=== PATIENT | male | born 1940 | race Caucasian/White ===

== ENCOUNTER 2023-08-22 16:25 | Emergency (ER) | payer OTHER, SELFPAY ==
[2023-08-22 16:37] VITALS: BP 137/72
[2023-08-22 18:20] LABS: % Basophils 0.6 % (0-2); % Eosinophils 1.8 % (0-6); % Immature Granulocytes 1.1 % (0-0.5); % Lymphocytes 24.5 % (20.5-51.1); % Monocytes 9.3 % (1.7-9.3); % Neutrophils 62.7 % (42.2-75.2); Absolute Basophils 0.1 10^3/uL (0-0.2); Absolute Eosinophils 0.2 10^3/uL (0-0.7); Absolute Immature Granulocytes 0.1 10^3/uL (0-0.05); Absolute Lymphocytes 2.7 10^3/uL (1.2-3.4); Hematocrit 45.1 % (39.0-52.0); Hemoglobin 15.1 g/dL (13.0-18.0); Mean Corp Hgb Conc. 33.5 g/dL (33.0-37.0); Mean Corpuscular Hgb 32.7 pg (27.0-31.0); Mean Corpuscular Volume 97.6 fL (80.0-94.0); Mean Platelet Volume 11.4 fL (7.4-10.4); Nucleated Red Blood Cells % 0 % (-); Platelet Count 180 10^3/uL (130-400); Red Blood Cell Count 4.62 10^6/uL (4.70-6.10); White Blood Cell Count 11.1 10^3/uL (4.8-10.8)
[2023-08-22 18:32] LABS: Blood Urea Nitrogen 38 mg/dl (9-20); Calcium 9.1 mg/dl (8.4-10.2); Carbon Dioxide 24 mmol/L (22-30); Chloride 99 mmol/L (98-107); Glucose 110 mg/dl (70-99); Potassium 4.1 mmol/L (3.5-5.1); Sodium 131 mmol/L (135-145); eGFR > 60.00
[2023-08-22 19:08] VITALS: BP 149/77
[2023-08-22 20:00] VITALS: BP 147/87
--- NOTE | 2023-08-22 20:00 | ED.GENMED ---
History of Present Illness
General
Chief Complaint: Back Pain
Source: patient
Exam Limitations: none
Time Seen by Provider: 08/22/23 17:12
Travel History
Have you had any contact with someone who has COVID-19?: No
Do you have any symptoms of coronavirus? Fever > 100 degrees, chills, cough, shortness of breath, sore throat, loss of taste or smell, muscle aches, or headache?: No
History of Present Illness
History of Present Illness:
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 Difficulty sleeping. He was up all last light pacing. A general jittery feeling to his body. This is occurred occasionally in the past. Denies chest
pain shortness of breath headache or other neurologic symptoms. He does state his mouth feels dry.
Past History
Past History
ED Past Medical History: Arrthythmia (af), CAD, GERD, HTN, Hypercholesterolemia, [place] and Other (pancreatitis)
ED Past Surgical History: Orthopedic and Other ( intussusception x2 as a child)
Social History
Tobacco: Non-smoker
Alcohol: None
Drug: None
Personal:
Living: with family
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
Family History
Family History: Hypertension
Review of Systems
Review of Systems
All Other Systems: Not applicable
Constitutional: Denies fever
Respiratory: Reports no symptoms
Cardiac: Reports no symptoms
ABD/GI: Reports no symptoms
Phy Exam
Physical Exam
Physical Exam:
GENERAL: Alert and oriented in no apparent distress
EYE: Orbits normal.
NECK: Supple, no thyroid palpable
ENT: Pharynx without erythema
CARDIAC: Borderline bradycardia no murmur
LUNGS: Clear breath sounds,normal
ABDOMEN: Soft, without focal tenderness or distention
NEUROLOGICAL: Alert and oriented , cranial nerves II through XII intact except for a very minimal slur to his speech. Patient states his speech is normal to him. [id number] normal. Gait slightly wide-based. However he states this is also
normal for him.
SKIN: Warm and dry, no rash or lesion, no discoloration, skin intact.
MUSCULOSKELETAL: No edema,no deformity.Good color
PSYCH: Normal and appropriate interaction.
Course
Orders/Labs/Results
Orders:
Orders
08/22/23 17:39
CT Head W/o Iv Contrast Urgent
Comment:
Reason For Exam: Akathisia. Anticoagulated
IV Insert/Care/Rem.- Treatment PRN
08/22/23 18:04
Basic Metabolic Panel Urgent
Complete Blood Count/With Diff Urgent
Abnormal Lab Results
08/22/23
18:04
WBC 11.1 H 10^3/uL
(4.8-10.8)
RBC 4.62 L 10^6/uL
(4.70-6.10)
MCV 97.6 H fL
(80.0-94.0)
MCH 32.7 H pg
(27.0-31.0)
MPV 11.4 H fL
(7.4-10.4)
Abs Immat Gran (auto) 0.1 H 10^3/uL
(0-0.05)
Absolute Neuts (auto) 7.0 H 10^3/uL
(1.4-6.5)
Absolute Monos (auto) 1.0 H 10^3/uL
(0.1-0.6)
Immature Gran % 1.1 H %
(0-0.5)
Sodium 131 L mmol/L
(135-145)
BUN 38 H mg/dl
(9-20)
Glucose 110 H mg/dl
(70-99)
08/22/23 18:04
01/29/24 18:04
Vital Signs
Initial and Last Documented VS:
Initial Vital Signs
Temp Pulse Resp BP Pulse Ox
97.6 F 60 16 137/72 96
08/22/23 16:37 08/22/23 16:37 08/22/23 16:37 08/22/23 16:37 08/22/23 16:37
Last Documented Vital Signs
Temp Pulse Resp BP Pulse Ox
97.6 F 57 16 149/77 99
08/22/23 16:37 08/22/23 19:15 08/22/23 19:15 08/22/23 19:08 08/22/23 19:15
*Radiology
Radiology exam reviewed: radiology read reviewed (Negative)
*Maintenance Shop Welder Interpretation
Rate: bradycardiac
Interpretation: normal
Heart Rate: 57
*Critical Care Note
Total Time (30-74mins, 75-104mins- exclusive of procedures): Not Applicable
Data Reviewed
Review of Other/Old Records Reveals: Labs and Records
Update Note
Update Note:
Patient is very and very nontoxic and stable. Not describing acute cardiac neurologic symptoms. Describing almost a mild akathisia and possibly some anxiety component. He did feel this slightly worse before you are going to CT which he was
worried about. Patient's sodium is 131 which I doubt is causing his symptoms and not low enough to warrant admission however we will hold his diuretic blood pressure medication somewhat limit fluid intake repeat his sodium in 3 days.
ED Attending Note
-
Portions of this chart may have been created with voice recognition software.� Occasional wrong word or��sound alike� substitutions may have occurred due to the inherent limitations of voice recognition software.
Discharge Plan
Departure
Patient Disposition: Home (Routine Discharge)
Date of Disposition: 08/22/23
Time of Disposition: 20:03
Patient with high blood pressure during this ER visit?: Yes
Discharge Problem:
Akathisia, Insomnia, Mild hyponatremia
Instructions: Hyponatremia (DC), Insomnia (DC), BLOOD PRESSURE
Prescriptions:
New
candesartan 32 mg tablet
32 mg PO DAILY Qty: 14 0RF
No Action
prednisone 10 MG tablet
5 mg PO HS
acetaminophen 325 MG tablet
650 mg PO Q4HPRN PRN (Reason: fever)
mirtazapine 15 MG tablet
30 mg PO HS
tamsulosin [Flomax] 0.4 MG capsule
0.8 mg PO HS
candesartan-hydrochlorothiazid 1 EACH tablet
1 tab PO DAILY
hydrocodone-acetaminophen 1 TABLET tablet
1 tab PO BIDPRN PRN (Reason: severe back pain)
Patient Comments:
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
famotidine 20 MG tablet
20 mg PO DAILYPRN PRN (Reason: gerd)
calcium carbonate [Antacid (calcium carbonate)] 1 TABLET tablet,chewable
1 tab PO Q6HPRN PRN (Reason: upset stomach)
nitroglycerin 0.4 MG tablet, sublingual
0.4 mg sublingual [id number] PRN (Reason: chest pain)
pantoprazole 40 MG tablet,delayed release (DR/EC)
40 mg PO BID
allopurinol 300 MG tablet
300 mg PO DAILY
rosuvastatin 5 MG tablet
5 mg PO HS
Propranolol Hcl [Inderal La] 60 MG Cap.Sa.24h
60 mg PO DAILY Qty: 30 3RF
propranolol 60 MG tablet
60 mg PO DAILY
propranolol 20 MG tablet
20 mg PO Q6HPRN PRN (Reason: as needed)
Patient Comments:
take 1/2 to 1 tablet prn
Eliquis 5 MG tablet
5 mg PO BID Qty: 0 0RF
Rx Instructions:
Ok to resume tonight, 01/30 at usual time
alprazolam 0.5 MG tablet
0.5 mg PO HSPRN PRN (Reason: INSOMNIA) 0RF
Patient Comments:
pharmacy rock picker on 12/08/20 #30
Referrals:
Elroy Olguin MD [Family Provider] - Follow up in 2-3 days
Activity Restrictions/Additional Instructions:
Get a repeat sodium level done this
Stay hydrated but limit your fluid intake
Temporarily drop your hydrochlorothiazide for your blood pressure into your sodium increases. I sent in the prescription without the diuretic
Follow-up closely with your primary physician
Return with progression of symptoms including worsening akathisia or any other unusual symptoms
Interventions
Interventions:
*Risk Screen - Suicide Last Done: 08/22/23 16:37
*General Assessment Last Done: 08/22/23 16:37
*Neglect/Abuse Screening Last Done: 08/22/23 16:40
ED- Fall Risk Assessment Last Done: 08/22/23 16:37
*ED COVID-19 Vaccine History Last Done: 08/22/23 16:37
ED-Musculoskeletal Assessment Last Done: 08/22/23 16:37
== END 2023-08-22 21:05 | disposition home or self-care (01) ==
LOC: EMR 16:25
PROVIDERS: EMERGENCY PHYSICIAN Emergency Medicine; FAMILY PHYSICIAN Internal Medicine
DX: G25.71 Drug induced akathisia (principal); G47.00 Insomnia, unspecified; E87.1 Hypo-osmolality and hyponatremia; I25.10 Atherosclerotic heart disease of native coronary artery without angina pectoris; K21.9 Gastro-esophageal reflux disease without esophagitis; I10 Essential (primary) hypertension; E78.00 Pure hypercholesterolemia, unspecified; Z82.49 Family history of ischemic heart disease and other diseases of the circulatory system
CPT/HCPCS: 99284; 70450; 80048; 85025

== ENCOUNTER → 2023-12-10 11:49 | Outpatient (REF) | payer OTHER, SELFPAY | LOC: RAD 11:49 | PROVIDERS: ATTENDING PHYSICIAN Internal Medicine | DX: J32.9 Chronic sinusitis, unspecified (principal); J34.89 Other specified disorders of nose and nasal sinuses; G44.52 New daily persistent headache (NDPH) | CPT/HCPCS: 70220 ==

== ENCOUNTER 2023-12-31 17:26 | Emergency (ER) | payer OTHER, SELFPAY ==
[2023-12-31 17:28] VITALS: BP 158/98
[2023-12-31 18:14] VITALS: BMI 28.1
--- NOTE | 2023-12-31 18:26 | ED.GENMED ---
History of Present Illness
General
Chief Complaint: Rectal Bleeding
Time Seen by Provider: 12/31/23 18:05
Travel History
Have you had any contact with someone who has COVID-19?: No
Do you have any symptoms of coronavirus? Fever > 100 degrees, chills, cough, shortness of breath, sore throat, loss of taste or smell, muscle aches, or headache?: No
History of Present Illness
History of Present Illness:
83-year-old male with history of A-fib, hypertension, and hyperlipidemia presents to the emergency department for evaluation of bright red rectal bleeding beginning last night. He is 11 days status post hemorrhoidal banding, states he had brief
bloody stool the day after the procedure but none since. Last night had 1 bloody bowel movement and today had 3 separate bloody bowel movements. He denies lightheadedness or abdominal pain. He last took his Eliquis last night but held his morning
dose today. Denies any other complaint
Past History
Past History
ED Past Medical History: Arrthythmia (af), CAD, GERD, HTN, Hypercholesterolemia, [place] and Other (pancreatitis)
ED Past Surgical History: Orthopedic and Other ( intussusception x2 as a child)
Social History
Tobacco: Non-smoker
Alcohol: None
Drug: None
Personal:
Living: with family
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
Family History
Family History: Hypertension
Review of Systems
Review of Systems
Allergies reviewed?: Yes
All Other Systems: ROS reviewed and negative except as documented in HPI and ROS
Phy Exam
Physical Exam
Physical Exam:
GEN: Well appearing, NAD, WDWN
HEENT: Oral mucosa moist, no scleral icterus
Cardiac: Regular rate
Lung: No respiratory distress, no tachypnea
Rectal: Scant blood in the rectal vault, no palpable hemorrhoids
MSK: No gross deformity or injuries
Skin: Good color, no pallor or jaundice, no rashes
Neuro: AO x3, moves all extremities freely
Psych: Calm, cooperative
Course
Orders/Labs/Results
Orders:
Orders
12/31/23 18:31
Complete Blood Count/With Diff Urgent
Comprehensive Metabolic Panel Urgent
Abnormal Lab Results
12/31/23
18:31
WBC 11.2 H 10^3/uL
(4.8-10.8)
MCH 31.4 H pg
(27.0-31.0)
MPV 11.6 H fL
(7.4-10.4)
Abs Immat Gran (auto) 0.1 H 10^3/uL
(0-0.05)
Absolute Neuts (auto) 6.8 H 10^3/uL
(1.4-6.5)
Absolute Monos (auto) 1.1 H 10^3/uL
(0.1-0.6)
Immature Gran % 1.0 H %
(0-0.5)
Monocytes % 9.8 H %
(1.7-9.3)
BUN 29 H mg/dl
(9-20)
12/31/23 18:31
12/31/23 18:31
Vital Signs
Initial and Last Documented VS:
Initial Vital Signs
Temp Pulse Resp BP Pulse Ox
98.0 F 67 16 158/98 98
12/31/23 17:28 12/31/23 17:28 12/31/23 17:28 12/31/23 17:28 12/31/23 17:28
Last Documented Vital Signs
Temp Pulse Resp BP Pulse Ox
98.0 F 67 16 158/98 98
12/31/23 17:28 12/31/23 17:28 12/31/23 17:28 12/31/23 17:28 12/31/23 17:28
MDM/Problems Addressed
MDM/Problems Addressed:
Had a lengthy discussion with the patient regarding his stable hemoglobin which dropped from 15.4-14.9 over the past 2 weeks. He will hold his Eliquis for another 48 hours. He is comfortable with this plan and his colorectal surgeon is made aware
and is on board.
*Critical Care Note
Total Time (30-74mins, 75-104mins- exclusive of procedures): Not Applicable
ED Attending Note
-
Portions of this chart may have been created with voice recognition software.� Occasional wrong word or��sound alike� substitutions may have occurred due to the inherent limitations of voice recognition software.
Discharge Plan
Departure
Patient Disposition: Home (Routine Discharge)
Date of Disposition: 12/31/23
Time of Disposition: 19:25
Patient with high blood pressure during this ER visit?: No
Discharge Problem:
BRBPR (bright red blood per rectum)
Instructions: Bloody Stools, Adult (DC)
Prescriptions:
No Action
prednisone 10 MG tablet
5 mg PO HS
acetaminophen 325 MG tablet
650 mg PO Q4HPRN PRN (Reason: fever)
mirtazapine 15 MG tablet
30 mg PO HS
tamsulosin [Flomax] 0.4 MG capsule
0.8 mg PO HS
candesartan-hydrochlorothiazid 1 EACH tablet
1 tab PO DAILY
hydrocodone-acetaminophen 1 TABLET tablet
1 tab PO BIDPRN PRN (Reason: severe back pain)
Patient Comments:
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
famotidine 20 MG tablet
20 mg PO DAILYPRN PRN (Reason: gerd)
calcium carbonate [Antacid (calcium carbonate)] 1 TABLET tablet,chewable
1 tab PO Q6HPRN PRN (Reason: upset stomach)
nitroglycerin 0.4 MG tablet, sublingual
0.4 mg sublingual [id number] PRN (Reason: chest pain)
pantoprazole 40 MG tablet,delayed release (DR/EC)
40 mg PO BID
allopurinol 300 MG tablet
300 mg PO DAILY
rosuvastatin 5 MG tablet
5 mg PO HS
Propranolol Hcl [Inderal La] 60 MG Cap.Sa.24h
60 mg PO DAILY Qty: 30 3RF
propranolol 60 MG tablet
60 mg PO DAILY
propranolol 20 MG tablet
20 mg PO Q6HPRN PRN (Reason: as needed)
Patient Comments:
take 1/2 to 1 tablet prn
Eliquis 5 MG tablet
5 mg PO BID Qty: 0 0RF
Rx Instructions:
Ok to resume tonight, 01/30 at usual time
candesartan 32 mg tablet
32 mg PO DAILY Qty: 14 0RF
alprazolam 0.5 MG tablet
0.5 mg PO HSPRN PRN (Reason: INSOMNIA) 0RF
Patient Comments:
pharmacy picker/puller on 12/08/20 #30
Referrals:
Elroy Olguin MD [Family Provider] -
Activity Restrictions/Additional Instructions:
Return if bleeding worsens
Hold Eliquis until Tuesday
Contact colorectal surgery Tuesday for further instruction
Interventions
Interventions:
*Risk Screen - Suicide Last Done: 12/31/23 18:14
*General Assessment Last Done: 12/31/23 18:14
*Neglect/Abuse Screening Last Done: 12/31/23 18:14
ED- Fall Risk Assessment Last Done: 12/31/23 18:12
*ED COVID-19 Vaccine History Last Done: 12/31/23 17:28
*Nursing Disposition Last Done: 12/31/23 20:01
BD-Mfqrow-Icmuiinywv Assessment Last Done: 12/31/23 18:33
ED- Cardiac Assessment Last Done: 12/31/23 18:33
ED- Pulmonary Assessment Last Done: 12/31/23 18:33
Discharge Date and Time
Discharge Date/Time: 12/31/23 20:02
Print Language: BULGARIAN
[2023-12-31 18:51] LABS: % Basophils 0.7 % (0-2); % Lymphocytes 24.7 % (20.5-51.1); % Monocytes 9.8 % (1.7-9.3); % Neutrophils 60.8 % (42.2-75.2); Absolute Basophils 0.1 10^3/uL (0-0.2); Absolute Eosinophils 0.3 10^3/uL (0-0.7); Absolute Immature Granulocytes 0.1 10^3/uL (0-0.05); Absolute Lymphocytes 2.8 10^3/uL (1.2-3.4); Absolute Monocytes 1.1 10^3/uL (0.1-0.6); Absolute Neutrophils 6.8 10^3/uL (1.4-6.5); Hematocrit 44.2 % (39.0-52.0); Hemoglobin 14.9 g/dL (13.0-18.0); Mean Corp Hgb Conc. 33.7 g/dL (33.0-37.0); Mean Corpuscular Hgb 31.4 pg (27.0-31.0); Mean Corpuscular Volume 93.2 fL (80.0-94.0); Mean Platelet Volume 11.6 fL (7.4-10.4); Nucleated Red Blood Cells % 0 % (-); Platelet Count 202 10^3/uL (130-400); Red Blood Cell Count 4.74 10^6/uL (4.70-6.10); Red Cell Dist. Width 13.7 % (11.5-14.5); White Blood Cell Count 11.2 10^3/uL (4.8-10.8)
[2023-12-31 19:07] LABS: ALT (SGPT) 30 U/L (0-50); AST (SGOT) 43 U/L (17-59); Albumin 4.4 g/dl (3.5-5.0); Alkaline Phosphatase 49 U/L (38-126); Blood Urea Nitrogen 29 mg/dl (9-20); Calcium 10.1 mg/dl (8.4-10.2); Carbon Dioxide 28 mmol/L (22-30); Chloride 102 mmol/L (98-107); Estimated Creatinine Clearance 51 ml/min; Glucose 93 mg/dl (70-99); Potassium 4.2 mmol/L (3.5-5.1); Sodium 139 mmol/L (135-145); Total Bilirubin 0.6 mg/dl (0.2-1.3); eGFR > 60.00
== END 2023-12-31 20:02 | disposition home or self-care (01) ==
LOC: EMR 17:26
PROVIDERS: Physician Assistant; EMERGENCY PHYSICIAN Student in an Organized Health Care Education/Training Program; FAMILY PHYSICIAN Internal Medicine
DX: K62.5 Hemorrhage of anus and rectum (principal); I48.91 Unspecified atrial fibrillation; E78.00 Pure hypercholesterolemia, unspecified; I10 Essential (primary) hypertension; I25.10 Atherosclerotic heart disease of native coronary artery without angina pectoris; K21.9 Gastro-esophageal reflux disease without esophagitis; Z82.49 Family history of ischemic heart disease and other diseases of the circulatory system; Z87.19 Personal history of other diseases of the digestive system
CPT/HCPCS: 99283; 80053; 85025

== ENCOUNTER 2024-01-08 04:24 | Inpatient (IN) | payer OTHER, SELFPAY ==
[2024-01-07 21:45] VITALS: BP 136/88
[2024-01-07 22:20] VITALS: BMI 28.7
[2024-01-07 22:24] VITALS: BP 127/69
[2024-01-07 23:00] VITALS: BP 151/75
[2024-01-07 23:44] LABS: Hematocrit 41.8 % (39.0-52.0); Hemoglobin 14.5 g/dL (13.0-18.0); Mean Corp Hgb Conc. 34.7 g/dL (33.0-37.0); Mean Corpuscular Hgb 32.1 pg (27.0-31.0); Mean Corpuscular Volume 92.5 fL (80.0-94.0); Mean Platelet Volume 11.2 fL (7.4-10.4); Platelet Count 168 10^3/uL (130-400); Red Blood Cell Count 4.52 10^6/uL (4.70-6.10); Red Cell Dist. Width 13.7 % (11.5-14.5); White Blood Cell Count 10.5 10^3/uL (4.8-10.8)
[2024-01-08] VITALS (11 sets, daily range): BP systolic 113–169; BP diastolic 53–78; PULSE 56; O2SAT 97; BMI 28.3
[2024-01-08 00:01] LABS: Blood Urea Nitrogen 18 mg/dl (9-20); Calcium 9.9 mg/dl (8.4-10.2); Carbon Dioxide 24 mmol/L (22-30); Chloride 105 mmol/L (98-107); Estimated Creatinine Clearance 56 ml/min; Glucose 114 mg/dl (70-99); Magnesium 1.7 mg/dl (1.6-2.3); Sodium 139 mmol/L (135-145); eGFR > 60.00
--- NOTE | 2024-01-08 00:04 | ED.CVA ---
History of Present Illness
General
Chief Complaint: CVA/TIA Symptoms
Source: patient
Exam Limitations: none
Time Seen by Provider: 01/07/24 22:15
Nursing documentation reviewed up to this point in time: agreed with
Onset of Stroke Symptoms
Onset of symptoms known: Yes
Date of onset of symptoms: 01/05/24
Travel History
Have you had any contact with someone who has COVID-19?: No
Do you have any symptoms of coronavirus? Fever > 100 degrees, chills, cough, shortness of breath, sore throat, loss of taste or smell, muscle aches, or headache?: No
History of Present Illness
History of Present Illness:
Patient with history of atrial fibrillation on Eliquis, presents to ED secondary to slurred speech over the past 2 days. In addition, patient states that he has had difficult time verbalizing although he knew what he wanted to say. Denies
dizziness. Denies blurred vision. Denies loss of sensation or weakness. Denies difficulty with ambulation. Denies difficulty with swallowing. Denies previous history of similar symptoms. Of note, patient has had intermittent frontal headache
over the past 2 weeks as well. Patient has seen his primary care physician for the headache, and was started on Fioricet with improvement in symptoms. When his symptoms started 2 days ago, patient was afraid that he may have spontaneous
hemorrhage, as he is on Eliquis. As such, patient has stopped taking Eliquis for the past 2 days. In addition, 3 weeks ago, after having had his external hemorrhoid ligated, patient has had bleeding episodes. Postprocedure and in between, patient
has withheld Eliquis. However, patient has been on Eliquis for at least 8 days straight when his initial symptoms started.
Past History
Past History
ED Past Medical History: Arrthythmia (af), CAD, GERD, HTN, Hypercholesterolemia, [place] and Other (pancreatitis)
ED Past Surgical History: Orthopedic and Other ( intussusception x2 as a child)
Social History
Tobacco: Non-smoker
Alcohol: None
Drug: None
Personal:
Living: with family
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
Family History
Family History: Hypertension
Review of Systems
Review of Systems
Allergies reviewed?: Yes
All Other Systems: ROS reviewed and negative except as documented in HPI and ROS
Constitutional: Reports no symptoms
EENT: Reports no symptoms
Respiratory: Reports no symptoms
Cardiac: Reports no symptoms
ABD/GI: Reports no symptoms
Musculoskeletal: Reports no symptoms
Skin: Reports no symptoms
Neurological: Reports headache and other (slurred speech)
Phy Exam
Physical Exam
Physical Exam:
Physical Exam
General: mild distress, not acutely ill. afebrile
Head: nc/at. eomi. no nystagmus.
Neck: supple. no meningeal signs. no carotid bruit.
Heart: s1/s2 regular rate and rhythm, no murmur. equal radial pulses.
Lungs: no acute respiratory distress. clear bilaterally
Abdomen: normal bowel sounds. not tender.
Neuro: alert and oriented. no focal sensory/motor deficit. intermittent episodes of slowed speech noted.
Skin: no rash
Psychiatric: well kept. interactive and cooperative
Extremities: no edema. no calf tenderness.
Course
Orders/Labs/Results
Orders:
Orders
01/07/24 23:06
Electrocardiogram (*1) Urgent
Reason for Study: TIA/Stroke
CT Head W/o Iv Contrast Urgent
Comment:
Reason For Exam: slurred speech
EKG- Treatment ONCE
01/07/24 23:38
Basic Metabolic Panel Urgent
Complete Blood Count/No Diff Urgent
Magnesium Urgent
01/08/24 01:50
Apixaban [Eliquis] 5 mg PO NOW STA
01/08/24 03:53
Admit/Transfer Patient As Directed
Co-Sign Provider:
Level of Care: Inpatient admission
Assign to:: Telemetry
Physician / Group: Lalito
Diagnosis: CVA
Reason for Telemetry: CVA/TIA
Date to Stop Telemetry: 01/11/24
Time to Stop Telemetry: 11:00
Reason for Hospitalization: CVA
Expected length of stay greater than two midnights?: Yes
ELOS- Estimated Length of Stay in days: 2
I certify the patient meets the requirements for IP care: Yes
01/08/24 03:56
Code Status As Directed
Resuscitation Status: Full Code
01/08/24 05:16
Acetaminophen [Tylenol] 650 mg PO Q4HPRN PRN
Alprazolam [Xanax] 0.5 mg PO HSPRN PRN
Nitroglycerin Sublingual [Nitrostat (Sublingual)] 0.4 mg SL [id number] PRN
01/08/24 05:16
NEUROLOGY CONSULT Routine
Consulting Provider: Leigh Joe
Was physician already notified: Yes
Reason for consult: CVA
Activity As Directed
Activity Level: Ambulate
With Assistance
Bladder Scan As Directed
Follow Bladder Retention/Intermittent Cath Algorithm?: Yes
PRN if no void in __ hours: 6
Frequency: Per Retention Algorithm
If Bladder Scan Result >: 400
then:: Straight cath
EKG with chest pain [ECG as needed] As Directed
ECG as needed for:: Chest Pain
I/O [Intake/ Output] As Directed
Frequency: Per unit guidelines
NIH Stroke Scale As Directed
Neurological Checks As Directed
Frequency: q4h
Straight Cath As Directed
Frequency: Per Retention Algorithm
Additional Instructions: straight cath as needed per acute urinary retention algorithm for 24 hrs
Additional Instructions: for bladder scan greater than 400 mL
Vital Signs As Directed
Frequency: Per unit guidelines
Oxygen Therapy [O2 Therapy] [RESP] Routine
Titrate/Wean O2 to maintain O2 sat greater than (%): 94
Ot Eval And Treat Routine
PT Consult [Pt Eval And Treat] Routine
Activity Level: Ambulate
With Assistance
Speech Therapy Eval & Treat Routine
01/08/24 06:28
MR Brain Without Contrast IN AM
Comment:
Reason For Exam: CVA
Recent pill cam endoscopy?: No
01/08/24 06:29
Basic Metabolic Panel IN AM
Cardiovascular Evaluation IN AM
Complete Blood Count/No Diff IN AM
TSH Reflex To Free T4 Routine
01/08/24 08:00
Allopurinol [Zyloprim] 300 mg PO DAILY
Candesartan Cilexetil [Atacand] 32 mg PO DAILY
Propranolol Extended Release [Inderal LA] 60 mg PO DAILY
01/08/24 20:00
Apixaban [Eliquis] 5 mg PO BID
01/08/24 22:00
Mirtazapine [Remeron] 30 mg PO HS
Prednisone [Deltasone] 5 mg PO HS
Rosuvastatin Calcium [Crestor] 5 mg PO HS
Tamsulosin [Flomax] 0.8 mg PO HS
01/08/24 23:38
C-Reactive Protein Urgent
Comment: ADD ON
Vitamin B12 Urgent
Comment: ADD ON
01/11/24 11:00
DC Protocol for Telemetry ONCE
Abnormal Lab Results
01/07/24
23:38
RBC 4.52 L 10^6/uL
(4.70-6.10)
MCH 32.1 H pg
(27.0-31.0)
MPV 11.2 H fL
(7.4-10.4)
Glucose 114 H mg/dl
(70-99)
01/07/24 23:38
06/15/24 23:38
Vital Signs
Initial and Last Documented VS:
Initial Vital Signs
Temp Pulse Resp BP Pulse Ox
98.7 F 64 20 136/88 98
01/07/24 21:45 01/07/24 21:45 01/07/24 21:45 01/07/24 21:45 01/07/24 21:45
Last Documented Vital Signs
Temp Pulse Resp BP Pulse Ox
97.8 F 52 20 125/58 96
01/09/24 07:23 01/09/24 07:23 01/09/24 07:23 01/09/24 07:23 01/09/24 07:23
MDM/Problems Addressed
MDM/Problems Addressed:
CT head: NAD.
Discussed with (neurology) - recommends continuing Eliquis for now along with CVA workup.
*Critical Care Note
Total Time (30-74mins, 75-104mins- exclusive of procedures): Not Applicable
ED Attending Note
-
Portions of this chart may have been created with voice recognition software.� Occasional wrong word or��sound alike� substitutions may have occurred due to the inherent limitations of voice recognition software.
Discharge Plan
Departure
Patient Disposition: Admit
Date of Disposition: 01/08/24
Time of Disposition: 01:51
Admit to: Telemetry
Presentation/result/management discussed w/ accepting MD/DO: Hospitalist
Discharge Problem:
Slurred speech, Expressive aphasia
Interventions
Interventions:
*Risk Screen - Suicide Last Done: 01/07/24 21:45
*General Assessment Last Done: 01/07/24 22:20
*Neglect/Abuse Screening Last Done: 01/07/24 21:45
ED- Fall Risk Assessment Last Done: 01/08/24 05:05
*ED COVID-19 Vaccine History Last Done: 01/07/24 22:20
*Nursing Disposition Last Done: 01/08/24 05:05
ED- Pulmonary Assessment Last Done: 01/07/24 22:25
ED- Neurological Assessment Last Done: 01/07/24 22:30
ED- Cardiac Assessment Last Done: 01/07/24 22:25
ED Swallowing Screen Last Done: 01/07/24 22:25
Discharge Date and Time
Discharge Date/Time: 01/08/24 05:06
[2024-01-08] MEDS: ELIQUIS 5 MG PO ×2 (01:58→20:25)
--- NOTE | 2024-01-08 03:59 | HPS.HSE ---
Family Physician
-
Family Physician: NOT KNOW UNKNOWN - PT DOES
Chief Complaint
-
Speech abnormality
History of Present Illness
Patient is an 83y M with PMH significant for ASCVD, A-Fib and hypertension who presents to ED complaining of speech abnormality. Patient states that he first noted some slurred and sluggish speech on evening while speaking on the phone
with his son. His son did not appreciate any speech abnormalities at that time. Patient noted that his speech seemed normal for most of the day on Tuesday - though it was again slurred in the evening. Today he noted a similar pattern with symptoms
better this AM but worsening this evening. Patient states that he has had a dull, frontal headache for the past few weeks. He has been seen by his PCP and was started on Fioricet with good results.
Patient denies any other neurologic complaints including vision changes, weakness, numbness, etc.
Patient denies any prior history of CVA.
Patient notes recent increased stress due to family health issues.
In addition, he has had interrupted anticoagulation therapy over the past few weeks due to hemorrhoids.
He initially stopped his Eliquis for a hemorrhoid procedure on 12/19. He resumed his anticoagulation a few days later, but then developed BRBPR.
He again stopped his Eliquis (12/31/23) and remained off of it until this past Tuesday (01/03).
Medical History
Past Medical History
Past Medical History: Reports Other
Additional Past Medical History:
ASCVD
Hypertension
Paroxysmal Atrial Fibrillation
GERD
Hemorrhoids
Gout
Rheumatoid Arthritis
Lumbar DDD / Spinal Stenosis
Peripheral Neuropathy
BPH
Nephrolithiasis
Past Surgical History: Reports Other
Additional Past Surgical History:
PTCA with Stent (LAD)
Lumbar Surgery x 2
Appendectomy / Intussusception Repair
Ureteroscopy with Stent
Social History
Tobacco: Non-smoker
Alcohol: Occasional
Drug: None
Family History
Family History: Other (Father/ Mother: CAD)
Allergies / Home Medications
Allergies reflects when Allergies were last updated in [facility].
Home Medications with original date entered in [facility]
Allergy/Medication List:
Allergies
Allergy/AdvReac Type Severity Reaction Status Date / Time
atorvastatin calcium Allergy myalgias Verified 12/31/23 17:31
[From Lipitor]
lisinopril Allergy COUGH Verified 12/31/23 17:31
meperidine HCl [From Demerol] Allergy Nausea Verified 12/31/23 17:31
piroxicam [From Feldene] Allergy Gastritis Verified 12/31/23 17:31
simvastatin [From Zocor] Allergy myalgias Verified 12/31/23 17:31
Home Medications
alprazolam 0.5 mg tablet 0.5 mg PO HSPRN PRN INSOMNIA 01/02/20
prednisone 10 mg tablet 5 mg PO HS Anti-inflammatory 03/12/20
acetaminophen 325 mg tablet 650 mg PO Q4HPRN PRN fever 09/06/20
mirtazapine 15 mg tablet 30 mg PO HS Neurological Condition 09/06/20
tamsulosin 0.4 mg capsule (Flomax) 0.8 mg PO HS Urinary issue 09/07/20
allopurinol 300 mg tablet 300 mg PO DAILY Gout 01/05/21
calcium carbonate (Antacid (calcium carbonate)) 1 tab PO Q6HPRN PRN upset stomach 01/05/21
candesartan 32 mg-hydrochlorothiazide 12.5 mg tablet 1 tab PO DAILY Blood pressure 01/05/21
famotidine 20 mg tablet 20 mg PO DAILYPRN PRN gerd 01/05/21
nitroglycerin 0.4 mg sublingual tablet 0.4 mg sublingual [id number] PRN chest pain 01/05/21
rosuvastatin 5 mg tablet 5 mg PO HS High cholesterol 01/05/21
apixaban 5 mg tablet (Eliquis) 5 mg PO BID Blood clot prevention/tx ##0 01/30/21
propranolol 60 mg tablet 60 mg PO DAILY 01/30/21
omeprazole 20 mg tablet,delayed release 20 mg PO DAILY 01/08/24
propranolol 10 mg tablet 10 mg PO DAILY PRN chest pain 01/08/24
Review of Systems
-
History Source: Patient
A 12 point ROS was completed and negative except as noted: Yes
Constitutional: Denies Fever, Fatigue or Chills
Respiratory: Denies Cough or Trouble Breathing
Cardiac: Denies Chest Pain or Palpitations
Abdomen/GI: Denies Abdominal Pain, Nausea, Vomiting, Diarrhea, Bloody Stools or Black Stools
: Denies Dysuria, Frequency or Flank Pain
Musculoskeletal: Reports Edema (b/l LE edema - worse over the past week); Denies Joint Pain
Neurological: Reports Headache and Other (Slurred / slow speech.); Denies Dizzy, Weakness or Numbness
Psych: Denies Depression or Anxiety
Physical Exam
Vital Signs
Vital Signs
Temp Pulse Resp BP Pulse Ox
98.7 F 57 22 134/60 95
01/07/24 21:45 01/08/24 02:00 01/08/24 02:00 01/08/24 02:00 01/07/24 23:30
Physical Exam
General: Other (83y M in no acute distress.)
HEENT: Moist mucous membranes and PERRLA
Respiratory: Clear; No Wheezes, Rales or Rhonchi
Cardiac: S1/S2 and Regular Rhythm (with ectopy.); No Murmur
GI: Soft, Non Tender, Non Distended and Normal Bowel Sounds
Musculoskeletal: No Clubbing, No Cyanosis and Other (1-2+ pitting edema b/l LEs.)
Neuro: AO x 3 and Other (Mild R facial droop. Dysarthria that is mild and fluctuating. No other focal deficits appreciated.)
Laboratory Results
-
01/07/24 23:38
01/07/24 23:38
Impression/Plan
-
A/P: Patient is an 83y M with PMH significant for ASCVD, HTN and PA-Fib who presents to ED complaining of intermittent dysarthria x 2 days.
CVA / TIA
- Admit for further evaluation and treatment.
- Patient with dysarthria over the past 2 days with somewhat waxing / waning symptoms.
- On Eliquis for PAF, but dose interrupted x 2 over the past few weeks.
- CT head unremarkable in the ED. No other focal deficits.
- Follow neuro exam for changes.
- Continue Eliquis.
- Neurology evaluation.
- MRI, Echo, CUS in AM.
- Follow for any new / worsening symptoms.
ASCVD
Paroxysmal Atrial Fibrillation
- Stable.
- History of CAD with LAD stent.
- Continue current med regimen including Eliquis, statin, etc.
Benign Hypertension
- Stable. Continue outpatient med regimen and adjust as needed for normotension.
LE Edema
- Ongoing issue x months - though worse over the past week or so.
- Check Echo as part of CVA work-up as well.
Gout
RA
- Stable. Continue current allopurinol and prednisone with no changes.
- Follow for any new pain / joint symptoms.
Lumbar DDD
Spinal Stenosis
Peripheral Neuropathy
- Stable. No new complaints.
BPH
- Stable. Continue tamsulosin.
- Bladder scan protocol.
DVT Prophylaxis: On Eliquis
Code Status: Full
--- NOTE | 2024-01-08 06:28 | PTCARENOTE ---
Pt stating mild slurred speech and difficulty word finding- stating he feels as if it is worse. NIH- 0, not noted when completing NIH stroke scale. Jorge [facility] [employer] notified.
[2024-01-08 06:53] LABS: Hematocrit 40.5 % (39.0-52.0); Hemoglobin 13.6 g/dL (13.0-18.0); Mean Corp Hgb Conc. 33.6 g/dL (33.0-37.0); Mean Corpuscular Hgb 31.8 pg (27.0-31.0); Mean Corpuscular Volume 94.6 fL (80.0-94.0); Mean Platelet Volume 11.5 fL (7.4-10.4); Platelet Count 170 10^3/uL (130-400); Red Blood Cell Count 4.28 10^6/uL (4.70-6.10); Red Cell Dist. Width 13.8 % (11.5-14.5); White Blood Cell Count 7.6 10^3/uL (4.8-10.8)
[2024-01-08 07:48] LABS: Blood Urea Nitrogen 17 mg/dl (9-20); Calcium 9.6 mg/dl (8.4-10.2); Carbon Dioxide 26 mmol/L (22-30); Chloride 101 mmol/L (98-107); Estimated Creatinine Clearance 56 ml/min; Glucose 106 mg/dl (70-99); HDL Cholesterol 52 mg/dl; LDL Cholesterol, Calculated 71 mg/dl; Sodium 138 mmol/L (135-145); Total Cholesterol 148 mg/dl (50-199); Triglyceride 129 mg/dl (10-149); Very Low Density Lipoprotein 25 mg/dl (0-30); eGFR > 60.00
[2024-01-08 08:20] LABS: TSH Reflex To Free T4 1.81 uIU/ml (0.47-4.68)
--- NOTE | 2024-01-08 08:43 | W.PN.HOSP.TC ---
Today's Communication/Plan
-
see A/P
Assessment / Plan
Assessment / Plan
HPI: 83y M with PMH significant for ASCVD, A-Fib and hypertension who presented to ED complaining of speech abnormality. Patient states that he first noted some slurred and sluggish speech on evening while speaking on the phone with his
son. His son did not appreciate any speech abnormalities at that time. Patient noted that his speech seemed normal for most of the day on Tuesday - though it was again slurred in the evening. On (Tuesday), he noted a similar pattern with symptoms
better in the morning but worsened in the evening. Patient states that he has had a dull, frontal headache for the past few weeks. He has been seen by his PCP and was started on Fioricet with good results.
Patient denies any other neurologic complaints including vision changes, weakness, numbness, etc.
Patient denies any prior history of CVA.
Patient notes recent increased stress due to family health issues.
In addition, he has had interrupted anticoagulation therapy over the past few weeks due to hemorrhoids.
He initially stopped his Eliquis for a hemorrhoid procedure on 12/19. He resumed his anticoagulation a few days later, but then developed BRBPR.
He again stopped his Eliquis (12/31/23) and remained off of it until 01/03.
A/P:
# Slurred speech due to CVA / TIA
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
On Eliquis for PAF, but dose interrupted twice over the past few weeks.
CT head unremarkable in the ED. No other focal deficits.
Check MRI, Echo, carotid US.
LDL at 71
Follow A1C
Follow neuro exam for changes.
Continue Eliquis.
Neurology evaluation.
Follow for any new / worsening symptoms.
# ASCVD
# Paroxysmal Atrial Fibrillation, Stable.
# History of CAD with LAD stent.
Continue current med regimen including Eliquis, statin, etc.
# Benign Hypertension, Stable.
Continue outpatient med regimen and adjust as needed for normotension.
# Chronic LE Edema, ongoing for months, though worse over the past week or so.
Check Echo as part of CVA work-up as well.
# Gout
# RA
Stable. Continue current allopurinol and prednisone with no changes.
Follow for any new pain / joint symptoms.
# Lumbar DDD
# Spinal Stenosis
# Peripheral Neuropathy
Stable. No new complaints.
# BPH, Stable.
Continue tamsulosin.
Bladder scan protocol.
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
Code Status: Full
DW RN
Anticipated Discharge: 24 - 48 hours
Subjective/Interval History
-
Date of Service: January 08, 2024
Objective Data
-
Labs:
Laboratory Results
01/07/24 01/08/24
23:38 06:29
WBC 10.5 7.6
Hgb 14.5 13.6
Hct 41.8 40.5
Plt Count 168 170
Sodium 139 138
Potassium 4.0 4.0
Chloride 105 101
Carbon Dioxide 24 26
BUN 18 17
Creatinine 1.0 1.0
Glucose 114 H 106 H
Calcium 9.9 9.6
Vital Signs:
Vital Signs
Temp Pulse Resp BP Pulse Ox
36.4 C 60 20 154/74 98
01/08/24 05:29 01/08/24 05:29 01/08/24 05:29 01/08/24 05:29 01/08/24 05:29
Review of Systems
-
Neuro: Reports Other (slurred speech)
Physical Exam
-
General: Well Developed, Well Nourished, No Apparent Distress, Comfortable, Conversant and Slurred Speech (mild); Negative Respiratory Distress
HEENT: Normocephalic, Atraumatic, Nose Appears Normal and Ears Appear Normal; Negative Oxygen
Respiratory: Clear to Auscultation and Non Labored Respirations; Negative Accessory Resp Muscle Use
Cardiac: Regular Rhythm and S1/S2
GI: Soft, Nontender, Nondistended and Normal Bowel Sounds
Skin: Warm and Dry
Neuro: Awake, Alert, Oriented and AO x 3
Psych: Calm and Intact Judgement/Insight
Data Reviewed
-
CT Scan: Report Reviewed by me
Labs: Labs Reviewed by me
[2024-01-08] MEDS: ZYLOPRIM 300 MG PO (08:59)
[2024-01-08] MEDS: ATACAND 32 MG PO (08:59)
[2024-01-08] MEDS: INDERAL LA 60 MG PO (09:02)
[2024-01-08] MEDS: TYLENOL 650 MG PO ×2 (09:06→20:56)
--- NOTE | 2024-01-08 09:59 | PTOTSP ---
SPEECH THERAPY SWALLOW EVALUATION:
Patient exhibits grossly functional oropharyngeal swallow at this time. Patient remains at risk for aspiration given suspected CVA. Recommend continue Regular texture solids, thin liquids. Medications whole with liquid, one at a time. General
aspiration precautions including: Upright positioning, small single sips/bites, slow rate of intake. Speech therapy to follow briefly, assess tolerance and modify as appropriate, and complete full speech/language/cognitive communication evaluation.
RECOMMEND:
1) Regular texture solids, thin liquids
2) Medications whole with liquid, one at a time
3) General aspiration precautions including: Upright positioning, small single sips/bites, slow rate of intake
4) Speech therapy to follow
[2024-01-08] MEDS: ATIVAN 1 MG IV (10:57)
[2024-01-08] MEDS: NSS (PRESERVATIVE FREE) 0.5 ML IV (10:58)
[2024-01-08 12:00] LABS: Glycohemoglobin (HgbA1c) 6.1 % (4.0-5.6)
--- NOTE | 2024-01-08 14:47 | CON.NEURO4 ---
Addendum entered and electronically signed by Leigh Joe, DO 01/08/24 17:33:
Ordered B12, thyroid panel, ESR/CRP, LFTs, ammonia level, phenobarbital level.
Original Note:
Consultation - Neurology 4
-
CONSULTING PHYSICIAN: Dr. Joe
REFERRING PHYSICIAN: Dr. Jones
DICTATED BY: Dr. Joe
DATE/TIME OF REQUEST: 01/07/24 in the evening
DATE/TIME OF CONSULTATION: 01/08/24 at 1500
Reason for Consultation: stroke
History of Present Illness:
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 No other associated focal deficits. He has had a new
bifrontal headache without migrainous features for the past 4-6 weeks with increased stress level since his daughter experienced severe health issues; since this time he's also been having insomnia. He has also experienced increased stress from the
of several friends and loved ones since July. He takes Eliquis and has held it twice over the past few weeks (12/17-12/20 and 12/30-01/03) but is now back on it. MRI brain ruled out stroke.
PMH:
ASCVD
Hypertension
Paroxysmal Atrial Fibrillation
GERD
Hemorrhoids
Gout
Rheumatoid Arthritis
Lumbar DDD / Spinal Stenosis
Peripheral Neuropathy
BPH
Nephrolithiasis
Past Surgical History:
PTCA with Stent (LAD)
Lumbar Surgery x 2
Appendectomy / Intussusception Repair
Ureteroscopy with Stent
Social History
Tobacco: Non-smoker
Alcohol: Occasional
Drug: None
Family History
Family History:Father/ Mother: CAD
Allergies
carvedilol Allergy (Unknown, Verified 01/08/24 06:46)
Unknown
meperidine [From Demerol] Allergy (Unknown, Verified 01/08/24 06:47)
Unknown
methotrexate Allergy (Unknown, Verified 01/08/24 06:47)
Unknown
atorvastatin calcium [From Lipitor] Allergy (Verified 12/31/23 17:31)
myalgias
lisinopril Allergy (Verified 12/31/23 17:31)
COUGH
meperidine HCl [From Demerol] Allergy (Verified 12/31/23 17:31)
Nausea
piroxicam [From Feldene] Allergy (Verified 12/31/23 17:31)
Gastritis
simvastatin [From Zocor] Allergy (Verified 12/31/23 17:31)
myalgias
Home Medications
�Medication �Instructions �Recorded
alprazolam 0.5 mg tablet 0.5 mg PO HSPRN PRN INSOMNIA 01/02/20
prednisone 10 mg tablet 5 mg PO HS Anti-inflammatory 03/12/20
acetaminophen 325 mg tablet 650 mg PO Q4HPRN PRN fever 09/06/20
mirtazapine 15 mg tablet 30 mg PO HS Neurological Condition 09/06/20
tamsulosin 0.4 mg capsule (Flomax) 0.8 mg PO HS Urinary issue 09/07/20
allopurinol 300 mg tablet 300 mg PO DAILY Gout 01/05/21
calcium carbonate (Antacid 1 tab PO Q6HPRN PRN upset stomach 01/05/21
(calcium carbonate))
candesartan 32 1 tab PO DAILY Blood pressure 01/05/21
mg-hydrochlorothiazide 12.5 mg
tablet
famotidine 20 mg tablet 20 mg PO DAILYPRN PRN gerd 01/05/21
nitroglycerin 0.4 mg sublingual 0.4 mg sublingual [id number] PRN 01/05/21
tablet chest pain
rosuvastatin 5 mg tablet 5 mg PO HS High cholesterol 01/05/21
apixaban 5 mg tablet (Eliquis) 5 mg PO BID Blood clot 01/30/21
prevention/tx ##0
propranolol 60 mg tablet 60 mg PO DAILY 01/30/21
pxknfygrbl-crkycsmsmvlbl-qhchykne 1 tab PO Q6H PRN headache\\ 01/08/24
50 mg-325 mg-40 mg tablet
omeprazole 20 mg tablet,delayed 20 mg PO DAILY 01/08/24
release
propranolol 10 mg tablet 10 mg PO DAILY PRN chest pain 01/08/24
Review of Symptoms:
Patient denies any fever, headache, chest pain, shortness of breath, GI or symptoms.
�Per the HPI.�All systems are reviewed negative except above.
Vital Signs
Temp Pulse Resp BP Pulse Ox
97.5 F 54 16 121/71 99
01/08/24 12:21 01/08/24 12:21 01/08/24 12:21 01/08/24 12:21 01/08/24 12:21
Lab Results
01/08/24 06:29
01/08/24 06:29
Sodium 138 mmol/L (135-145) 01/08/24 06:29
Potassium 4.0 mmol/L (3.5-5.1) 01/08/24 06:29
BUN 17 mg/dl (9-20) 01/08/24 06:29
Glucose 106 mg/dl (70-99) H 01/08/24 06:29
Calcium 9.6 mg/dl (8.4-10.2) 01/08/24 06:29
LDL Cholesterol, Calc 71 mg/dl 01/08/24 06:29
Physical Exam:
The patient is afebrile, heart sounds S1 and S2 are regular, and chest is clear to auscultation bilaterally.
NIH Stroke Scale :
I performed the NIH stroke scale on the patient on 01/08/24 at 1600. The patient scored 1 points on the NIH stroke scale assessment, which were assigned as follows: 1 for dysarthria which was intermittent
Neurologic Examination:
The patient is awake, alert and oriented x 3. He is able to follow commands and answer questions appropriately. There is no true aphasia; he exhibited mild intermittent dysarthria. On cranial nerve assessment, pupils are 3 mm bilateral, round and
reactive to light and accommodation. Visual deras are full. Extraocular movements are intact. Facial sensations are intact and bilaterally symmetrical, there is no facial asymmetry. Hearing is intact bilaterally to normal conversation volume.
Tongue palate and uvula are midline. Sternocleidomastoid strengths are full bilaterally. Motor strengths are 5/5 bilateral upper and lower extremities on medical research [place] scale. There is no drift or involuntary movement noted. Deep tendon
reflexes are 2+ bilateral upper and lower extremities and Babinski is absent bilaterally. Sensations of pain, touch, temperature and vibration are intact and bilaterally symmetrical. There was no extinction noted on double simultaneous stimulation.
Coordination is intact by finger to nose bilaterally.
Neuro Imaging:
HCT: 01/06
No acute intracranial abnormality noted.
Mild atrophy. Stable
MRI brain: 01/07
Moderate age-related parenchymal atrophy. Only a small amount of T2/FLAIR hyperintense signal in the bilateral periventricular white matter, likely on the basis of minimal chronic microangiopathic ischemia. No mass effect, midline shift, or extra
axial collection. No abnormal signal intensity on diffusion-weighted images. Chronic linear focus of susceptibility in the right frontal lobe. Stable appearance compared to the brain MRI from 2012, and again potentially on the basis of a vascular
malformation.
The vascular flow voids at the skull base are unremarkable, as far as visualized.
The paranasal sinuses are clear. The bilateral mastoid air cells appear to be hypoplastic and contain mild fluid signal intensity. Bilateral ocular lens implants are in place.
IMPRESSION:
No MRI evidence for an acute infarct.
Impression:
JUDE VALENZUELA is a 83 year old M who has presented to the hospital with waxing and waning dysarthria with occasional very mild word finding difficulty.
Differentials for the patient's presentation include:
1. combination of medication side effect, increased stress level with daughter's illness and insomnia/sleep deprivation
2. MRI negative stroke
3. seizure less likely, however will check EEG given recent use of Fioricet
Recommendations:
-continue Eliquis given lack of clear stroke on MRI
-EEG
-echo, CUS already ordered
-consider repeat MRI brain if no other etiology found
-better sleep hygiene, consider sleep study after discharge
-needs to slowly taper off Fioricet
-consider eventual addition of an antidepressant given increased stress level; admits feeling depressed
Discussed patient care with: patient, patient's son, ER, Dr. Riley
--- NOTE | 2024-01-08 16:26 | CM ---
Attempted [facility]-physician bedside
Per chart review, from Jonathan [facility]AX[facility]
Therapy following with [facility] recommendations
[2024-01-08 18:33] LABS: ALT (SGPT) 23 U/L (0-50); AST (SGOT) 28 U/L (17-59); Albumin 3.8 g/dl (3.5-5.0); Alkaline Phosphatase 57 U/L (38-126); Direct Bilirubin 0.3 mg/dl (0.0-0.4); Total Bilirubin 0.8 mg/dl (0.2-1.3); Total Protein 6.4 g/dl (6.3-8.2)
[2024-01-08 18:53] LABS: C-Reactive Protein < 5.00 mg/L (0.0-10.00)
[2024-01-08 19:41] LABS: Vitamin B12 380 pg/ml (239-931)
[2024-01-08] MEDS: CRESTOR 5 MG PO (20:51)
[2024-01-08] MEDS: REMERON 30 MG PO (20:51)
[2024-01-08] MEDS: FLOMAX 0.800000000000000044 MG PO (20:51)
[2024-01-08] MEDS: DELTASONE 5 MG PO (20:51)
[2024-01-08] MEDS: XANAX 0.5 MG PO (23:16)
[2024-01-09 03:35] VITALS: BP 115/54
[2024-01-09 07:23] VITALS: BP 125/58
[2024-01-09 08:13] LABS: Hematocrit 38.9 % (39.0-52.0); Hemoglobin 12.7 g/dL (13.0-18.0); Mean Corp Hgb Conc. 32.6 g/dL (33.0-37.0); Mean Corpuscular Hgb 31.4 pg (27.0-31.0); Mean Corpuscular Volume 96.3 fL (80.0-94.0); Mean Platelet Volume 12.1 fL (7.4-10.4); Platelet Count 155 10^3/uL (130-400); Red Blood Cell Count 4.04 10^6/uL (4.70-6.10); Red Cell Dist. Width 13.7 % (11.5-14.5); White Blood Cell Count 7.1 10^3/uL (4.8-10.8)
[2024-01-09 08:27] LABS: Erythrocyte Sed Rate 19 mm/hour (0-20)
--- NOTE | 2024-01-09 08:39 | W.PN.NEURO.1 ---
Addendum entered and electronically signed by Otto Carter MD 01/09/24 17:05:
I saw and evaluated patient I reviewed the note by Bettina Vivar agree the findings the following comments:
83-year-old male with a past no history of paroxysmal atrial fibrillation, recent hemorrhoid repair who had waxing and waning dysarthria along with mild aphasia being on 01/04. He had held his Eliquis for a very brief period due to the rectal
bleeding. He has been under significant stress with his daughter having illness although she is showing some decent recovery and improvements at this point but he has been pretty stressed out for the past several weeks. Not sleeping a great deal
worse than normal but has had significant new headaches for the past couple of weeks and he has been taking fairly frequent Fioricet for around the past 2 weeks. No history of migraines in the past no headaches and no positional aspect of the
headache.
Neurologic examination shows some very very minor pauses and word finding difficulty, no significant dysarthria I can appreciate
Brain MRI with no stroke seen
Carotid ultrasound no significant stenosis
Assessment: There are couple of possibilities for the patient's symptoms all of which I think will be relatively benign and have a good prognosis. There is a possibility that prolonged significant headache could start to produce minor neurologic
symptoms. Additionally some stress and sleep deprivation could produce a minor functional neurologic disorder. Lastly there is some possibility for an MRI brain negative stroke as MRI does not always visualize small strokes and patient had held
Eliquis briefly with recent bleeding hemorrhoids, if there were small stroke present this would not change my management to any significant extent.
Recommendations
-Mostly reassurance that this will improve with time
-Strongly emphasized driving back on the frequency of Fioricet to only 1 time a week at maximum and trying Tylenol along with caffeine and nonpharmacologic options for managing the headaches which he does report are starting to improve
-Okay to continue on his regular apixaban I would not start antiplatelet on top of anticoagulant
Original Note:
Documented by User: Bettina Crouch NP 01/09/24 15:20
Today's Communication / Plan
-
.
Neuro Assessment/Plan
Assessment
This is a 83 year old M who has presented to the hospital on 01/07/24 with report waxing and waning dysarthria with occasional very mild word finding difficulty starting on 01/05/24. Patient recently held his Eliquis for several days due to rectal
bleeding, he resumed his usual dosage on 01/04/24. He also has had several weeks of a daily intractable headache and has been taking Fioricet regularly.
-MRI brain 01/08/24: No MRI evidence for an acute infarct.
-Carotid ultrasound 01/09/24: RIGHT: Scant focal plaque is identified in the proximal internal carotid artery. Carotid velocity profile is consistent with 0-49% stenosis. Vertebral artery flow is antegrade.
LEFT: No significant plaque is identified. Carotid velocity profile is within normal limits and no stenosis is identified. Vertebral artery flow is antegrade.
-EEG 01/09/24: Unremarkable for age.
I. Likely combination of medication side effect, daily intractable headache, increased stress level with daughter's illness and insomnia/sleep deprivation producing speech changes.
II. MRI brain negative for stroke. Stroke not visualized on MRI brain possible but unlikely. TIA very unlikely given ongoing symptoms.
III. Seizure less likely, EEG unremarkable.
Plan
-Continue Eliquis 5mg BID given lack of clear stroke on MRI
-Repeat MRI brain would be unlikely to change plan of care.
-Better sleep hygiene, consider sleep study after discharge
-Needs to slowly taper off Fioricet and would avoid alprazolam.
-Consider eventual addition of an antidepressant given increased stress level; admits feeling depressed.
-Will follow as-needed, please contact our Neurology service with any questions/concerns.
Subjective/Objective
Subjective Data
Date of Service: January 09, 2024
No acute events overnight. Patient reports that his speech is improved but still not completely back to baseline. He denies any dizziness, vision changes, swallowing difficulty, numbness, weakness, chest pain, palpitations, and shortness of breath.
Objective Data
Vital Signs
Temp Pulse Resp BP Pulse Ox
97.8 F 52 20 125/58 96
01/09/24 07:23 01/09/24 07:23 01/09/24 07:23 01/09/24 07:23 01/09/24 07:23
Lab Results
01/09/24 07:32
Sodium 138 mmol/L (135-145) 01/08/24 06:29
Potassium 4.0 mmol/L (3.5-5.1) 01/08/24 06:29
BUN 17 mg/dl (9-20) 01/08/24 06:29
Glucose 106 mg/dl (70-99) H 01/08/24 06:29
Calcium 9.6 mg/dl (8.4-10.2) 01/08/24 06:29
LDL Cholesterol, Calc 71 mg/dl 01/08/24 06:29
Vitamin B12 380 pg/ml (239-931) 01/08/24 23:38
Patient Allergies
carvedilol Allergy (Unknown, Verified 01/08/24 06:46)
Unknown
meperidine [From Demerol] Allergy (Unknown, Verified 01/08/24 06:47)
Unknown
methotrexate Allergy (Unknown, Verified 01/08/24 06:47)
Unknown
atorvastatin calcium [From Lipitor] Allergy (Verified 12/31/23 17:31)
myalgias
lisinopril Allergy (Verified 12/31/23 17:31)
COUGH
meperidine HCl [From Demerol] Allergy (Verified 12/31/23 17:31)
Nausea
piroxicam [From Feldene] Allergy (Verified 12/31/23 17:31)
Gastritis
simvastatin [From Zocor] Allergy (Verified 12/31/23 17:31)
myalgias
LDL Level: <70, continue statin
Review of Systems
-
History Source: Patient
EENT: Negative Blurry Vision, Decreased Vision or Swallowing Difficulty
Respiratory: Negative Cough or Trouble Breathing
Cardiac: Negative Chest Pain or Palpitations
Abdomen/GI: Negative Nausea
Neuro: Speech Problem; Negative Dizzy, Weakness, Numbness, Ataxia or Tremors
Physical Exam
-
General: Well Developed, Well Nourished and No Apparent Distress
Eyes: No Ptosis and PERRLA
HEENT: Normocephalic and Atraumatic
Neck: Full Range of Motion
Respiratory: No Dyspnea
GI: Non-distended
Extremities: No Clubbing, No Cyanosis and No Edema
Psych: Unremarkable
Extended Neurological Exam
Mood & Affect: Mood Unremarkable and Affect Unremarkable
Attention Span & Concentration: Awake, Alert and Interactive
Memory: Unremarkable (AAOx3) and Able to Recall
Tremor: Hand Tremor Absent and Head Tremor Absent
Involuntary Movement: None
Speech: Quality Unremarkable, Quantity Unremarkable and Rate of Production Unremarkable
Cranial Nerve II: Left Eye: Pupillary Reactivity Unremarkable, Pupillary Size Unremarkable and Visual Whaley Intact
Cranial Nerve II: Right Eye: Pupillary Reactivity Unremarkable, Pupillary Size Unremarkable and Visual Whaley Intact
Cranial Nerves III, IV, : Extraocular Movement: Extraocular Movement Full in all Directions
Cranial Nerve VII: Facial Symmetry: Normal Facial Symmetry
Cranial Nerve VIII: Hearing: Unremarkable Hearing to Normal Conversational Volume
Cranial Nerves IX, X: Palate Movement: Palate Elevation Symmetric
Cranial Nerve XI: Shoulder Shrug: Unremarkable
Cranial Nerve XII: Tongue Protusion: Midline
Muscle Strength, Overall: Full Throughout
Muscle Bulk & Tone: Bulk Unremarkable and Tone Unremarkable
Pronator Drift: No Drift in Upper Extremities and No Drift in Lower Extremities
Touch Sensation: Double Simultaneous Stimulation Unremarkable
Coordination: Ggrppz-gcac-iefaoc Testing Unremarkable
Babinski Sign: Absent Bilaterally
Data Reviewed
-
CT Head: Report Reviewed and Image Reviewed
MRI Head: Report Reviewed and Image Reviewed
Carotid Ultrasound: Pending
Echocardiogram: Report Reviewed
Labs: Report Reviewed
Lipid Profile: Report Reviewed
HgbA1C: Report Reviewed
Reviewed with: Physician and Patient
Medications
-
Active Medications
Generic Name Dose Route Start Last Admin
Trade Name Freq PRN Reason Stop Dose Admin
Acetaminophen 650 mg 01/08/24 05:16 01/08/24 20:56
Acetaminophen 325 Mg Tablet PO 02/05/24 05:15 650 mg
Q4HPRN PRN Administration
mild pain / temp > 101
Acetaminophen/Butalbital/Caffeine 1 tab 01/08/24 17:35
Butalbit/Acetaminophen/Caffeine PO 02/05/24 17:33
DAILYPRN PRN
migraine
Allopurinol 300 mg 01/08/24 08:00 01/08/24 08:59
Allopurinol 300 Mg Tablet PO 02/05/24 07:59 300 mg
DAILY HERMELINDO Administration
Alprazolam 0.5 mg 01/08/24 05:16 01/08/24 23:16
Alprazolam 0.5 Mg Tablet PO 02/05/24 05:15 0.5 mg
HSPRN PRN Administration
insomnia
Apixaban 5 mg 01/08/24 20:00 01/08/24 20:25
Apixaban (Eliquis) 5 Mg Tablet PO 02/05/24 19:59 5 mg
BID HERMELINDO Administration
Candesartan Cilexetil 32 mg 01/08/24 08:00 01/08/24 08:59
Candesartan 16 Mg Tablet PO 02/05/24 07:59 32 mg
DAILY HERMELINDO Administration
Mirtazapine 30 mg 01/08/24 22:00 01/08/24 20:51
Mirtazapine 15 Mg Regular Release Tablet PO 02/05/24 21:59 30 mg
HS HERMELINDO Administration
Nitroglycerin 0.4 mg 01/08/24 05:16
Nitroglycerin 0.4 Mg Sl Tablet SL 02/05/24 05:15
[id number] PRN
chest pain
Prednisone 5 mg 01/08/24 22:00 01/08/24 20:51
Prednisone 5 Mg Tablet PO 02/05/24 21:59 5 mg
HS HERMELINDO Administration
Propranolol HCl 60 mg 01/08/24 08:00 01/08/24 09:02
Propranolol Extended Release 60 Mg Capsule (24hr) PO 02/05/24 07:59 60 mg
DAILY HERMELINDO Administration
Rosuvastatin Calcium 5 mg 01/08/24 22:00 01/08/24 20:51
Rosuvastatin (Crestor) 5 Mg Tablet PO 02/05/24 21:59 5 mg
HS HERMELINDO Administration
Sodium Chloride 0 flush 01/08/24 06:00
Sodium Chloride 0.9% (Flush) Syringe IV 02/05/24 05:59
PER PROTOCOL HERMELINDO
Tamsulosin HCl 0.8 mg 01/08/24 22:00 01/08/24 20:51
Tamsulosin 0.4 Mg Capsule PO 02/05/24 21:59 0.8 mg
HS HERMELINDO Administration
Home Medications
�Medication �Instructions �Recorded
alprazolam 0.5 mg tablet 0.5 mg PO HSPRN PRN INSOMNIA 01/02/20
prednisone 10 mg tablet 5 mg PO HS Anti-inflammatory 03/12/20
acetaminophen 325 mg tablet 650 mg PO Q4HPRN PRN fever 09/06/20
mirtazapine 15 mg tablet 30 mg PO HS Neurological Condition 09/06/20
tamsulosin 0.4 mg capsule (Flomax) 0.8 mg PO HS Urinary issue 09/07/20
allopurinol 300 mg tablet 300 mg PO DAILY Gout 01/05/21
calcium carbonate (Antacid 1 tab PO Q6HPRN PRN upset stomach 01/05/21
(calcium carbonate))
candesartan 32 1 tab PO DAILY Blood pressure 01/05/21
mg-hydrochlorothiazide 12.5 mg
tablet
famotidine 20 mg tablet 20 mg PO DAILYPRN PRN gerd 01/05/21
nitroglycerin 0.4 mg sublingual 0.4 mg sublingual [id number] PRN 01/05/21
tablet chest pain
rosuvastatin 5 mg tablet 5 mg PO HS High cholesterol 01/05/21
apixaban 5 mg tablet (Eliquis) 5 mg PO BID Blood clot 01/30/21
prevention/tx ##0
propranolol 60 mg tablet 60 mg PO DAILY Blood Pressure 01/30/21
mzzgmivzfo-lbpsxnezildii-wvmgbjau 1 tab PO Q6H PRN headache\\ 01/08/24
50 mg-325 mg-40 mg tablet
omeprazole 20 mg tablet,delayed 20 mg PO DAILY Gastrointestinal 01/08/24
release Issue
propranolol 10 mg tablet 10 mg PO DAILY PRN chest pain 01/08/24
NIH Stroke Score
Subsequent NIH Scale
Date of Subsequent NIH Scale: 01/09/24
Time of Subsequent NIH Scale: 13:30
NIH Stroke Score
Level of Consciousness: 0 - Alert
LOC Questions: 0-Answers both correctly
LOC Commands: 0-Performs both correctly
Best Horizontal Gaze: 0-Normal
Visual Whaley: 0=Normal, no visual loss
Facial Palsy: 0=Normal, symmetrical
Motor - Right Arm: 0=No drift 10 seconds
Motor - Left Arm: 0=No drift 10 seconds
Motor - Right Le-No drift 5 seconds
Motor - Left Le-No drift 5 seconds
Limb Ataxia: 0-Absent
Sensation: 0-Normal
Best Language: 0-No aphasia
Dysarthria: 0-Normal
Extinction and Inattention: 0-No abnormality
Total Score:: 0

Documented by User: Otto Carter MD 01/09/24 17:02
NIH Stroke Score
NIH Stroke Score
Total Score:: 0
[2024-01-09 09:03] LABS: Blood Urea Nitrogen 19 mg/dl (9-20); Calcium 9.3 mg/dl (8.4-10.2); Carbon Dioxide 23 mmol/L (22-30); Chloride 105 mmol/L (98-107); Estimated Creatinine Clearance 56 ml/min; Glucose 92 mg/dl (70-99); Potassium 3.9 mmol/L (3.5-5.1); Sodium 137 mmol/L (135-145); eGFR > 60.00
[2024-01-09] MEDS: ATACAND 32 MG PO (11:25)
[2024-01-09] MEDS: ELIQUIS 5 MG PO (11:25)
[2024-01-09] MEDS: ZYLOPRIM 300 MG PO (11:25)
[2024-01-09] MEDS: INDERAL LA 60 MG PO (11:26)
[2024-01-09 11:30] VITALS: BP 124/58
[2024-01-09 11:34] VITALS: BP 124/58; PULSE 50; O2SAT 98
[2024-01-09 11:48] LABS: Folate 11.9 ng/ml (2.76-20)
--- NOTE | 2024-01-09 11:48 | W.PN.HOSP.TC ---
Addendum entered and electronically signed by Josiah Barron MD 01/09/24 15:03:
Discussed with neurology. Carotid ultrasound, echo, EEG without acute abnormality. Patient symptoms have been slowly improving. Suspect could be secondary to benzodiazepine, Fioricet. Neurology recommended weaning Fioricet. Neurology is okay
with patient getting discharged today.
Time of discharge 37 minutes
Original Note:
Today's Communication/Plan
-
Monitor vital signs
see plan
Continue with Eliquis
Potential discharge today if okay with neurology
vit b12
Assessment / Plan
Assessment / Plan
HPI: 83y M with PMH significant for ASCVD, A-Fib and hypertension who presented to ED complaining of speech abnormality. Patient states that he first noted some slurred and sluggish speech on evening while speaking on the phone with his
son. His son did not appreciate any speech abnormalities at that time. Patient noted that his speech seemed normal for most of the day on Tuesday - though it was again slurred in the evening. On (Tuesday), he noted a similar pattern with symptoms
better in the morning but worsened in the evening. Patient states that he has had a dull, frontal headache for the past few weeks. He has been seen by his PCP and was started on Fioricet with good results.
Patient denies any other neurologic complaints including vision changes, weakness, numbness, etc.
Patient denies any prior history of CVA.
Patient notes recent increased stress due to family health issues.
In addition, he has had interrupted anticoagulation therapy over the past few weeks due to hemorrhoids.
He initially stopped his Eliquis for a hemorrhoid procedure on 12/19. He resumed his anticoagulation a few days later, but then developed BRBPR.
He again stopped his Eliquis (12/31/23) and remained off of it until 01/03.
A/P:
# Slurred speech
Patient with dysarthria over the past 2 days [employer] with somewhat waxing / waning symptoms.
On Eliquis for PAF, but dose interrupted twice over the past few weeks.
CT head unremarkable in the ED. No other focal deficits.
MRI negative for acute CVA, echo with EF 55 to 60%, trace MR, mild AR, trace TR. EEG without acute findings,carotid Doppler pending
LDL at 71
A1c 6.1
Follow neuro exam for changes.
Continue Eliquis.
Neurology evaluation.
Follow for any new / worsening symptoms.
speech following
Mild low vitamin B12
Start repletion
# ASCVD
# Paroxysmal Atrial Fibrillation, Stable.
# History of CAD with LAD stent.
Continue current med regimen including Eliquis, statin, etc.
# Benign Hypertension, Stable.
Continue outpatient med regimen and adjust as needed for normotension.
# Chronic LE Edema, ongoing for months, though worse over the past week or so.
# Gout
# RA
Stable. Continue current allopurinol and prednisone with no changes.
Follow for any new pain / joint symptoms.
# Lumbar DDD
# Spinal Stenosis
# Peripheral Neuropathy
Stable. No new complaints.
# BPH, Stable.
Continue tamsulosin.
Bladder scan protocol.
DVT Prophylaxis: on [employer]ACHINE [employer] Eliquis
Code Status: Full
General: Well Developed, Well Nourished, No Apparent Distress, Comfortable, Conversant and Slurred Speech (mild); Negative Respiratory Distress
HEENT: Normocephalic, Atraumatic, Nose Appears Normal and Ears Appear Normal; Negative Oxygen
Respiratory: Clear to Auscultation and Non Labored Respirations; Negative Accessory Resp Muscle Use
Cardiac: Regular Rhythm and S1/S2
GI: Soft, Nontender, Nondistended and Normal Bowel Sounds
Skin: Warm and Dry
Neuro: Awake, Alert, Oriented and AO x 3
Psych: Calm and Intact Judgement/Insight
Anticipated Discharge: Today
Subjective/Interval History
-
Date of Service: January 09, 2024
denies pain
Objective Data
-
Labs:
Laboratory Results
01/09/24
07:32
WBC 7.1
Hgb 12.7 L
Hct 38.9 L
Plt Count 155
Sodium 137
Potassium 3.9
Chloride 105
Carbon Dioxide 23
BUN 19
Creatinine 1.0
Glucose 92
Calcium 9.3
Vital Signs:
Vital Signs
Temp Pulse Resp BP Pulse Ox
98 F 50 22 124/58 98
01/09/24 11:30 01/09/24 11:30 01/09/24 11:30 01/09/24 11:30 01/09/24 11:30
I&O
01/08/24 01/09/24 01/10/24
06:59 06:59 06:59
Intake Total 240 / 240
Balance 240 / 240
--- NOTE | 2024-01-09 11:56 | EEG.RPT ---
Electroencephalogram Report
Recording
Date of EE01/09/24
Length of EEG recordin minutes
Patient Status: Inpatient
Recording Conditions: Awake
Hyperventilation Performed: No
Photic Stimulation Performed: Yes
Hand Dominance: Unknown
Report
LESS THAN 1 HOUR EEG REPORT
LESS THAN 1 HOUR EEG INTERPRETATION:
Unremarkable EEG for age
CLINICAL CORRELATION:
A normal EEG does not rule out a diagnosis of epilepsy.� If clinical suspicion for seizure persists, a prolonged recording may be warranted.
Clinical correlation is advised.
METHODS:
A 21 channel digitized electroencephalogram (EEG) was performed using the 10/20 international system of electrode placement and one-lead of ECG recorded.
ELECTROENCEPHALOGRAPHER IMPRESSION(S):
Quality of study
Good
Background
Mixed medium amplitude background of alpha and theta activities in awake and sleep states
Normal posterior dominant rhythm of 9-10 hz seen
There were no significant asymmetries of background activity noted.
Sleep
Drowsiness present
Stage 1 present
Photic Stimulation
No activation
ECG
Normal sinus rhythm
--- NOTE | 2024-01-09 14:49 | W.DCSUMMARY ---
Discharge Summary
Discharge Data
Date of Admission: 01/08/24
Date of Discharge: 01/09/24
-
Pending Results: No
Hospital Course
83-year-old male with past medical history of A-fib, essential hypertension, CAD, neuropathy, headaches, hemorrhoids, gout, rheumatoid arthritis, spinal stenosis, BPH came to the hospital with slurred speech. Patient was seen by neurology
throughout hospitalization. CT scan initially was negative for any acute CVA. Later on MRI was also negative for acute CVA. Given patient's symptoms neurology recommended EEG which was also without any acute findings. Carotid Doppler also did
not show any significant stenosis. Echocardiogram was also done which showed EF of 55 to 60%. Neurology thought patient's symptoms could likely be from overuse of Fioricet. Patient instructed to wean Fioricet. Upon labs patient also had mildly
low vitamin B12 for which patient was started on vitamin B12 repletion. Once patient symptoms were stable, he was then discharged home with instructions to follow-up with all his physicians outpatient.
Discharge Plan
-
Patient Disposition: Home (Routine Discharge)
Discharge Diagnosis/Procedures: Slurred speech/dysarthria
Low vitamin B12
Paroxysmal atrial fibrillation
Diet: As tolerated
Activity: As tolerated
Driving Restrictions: As prior to admission
Bathing Restrictions: None
Activity Restrictions/Additional Instructions:
Continue to wean Fioricet
Referrals:
UNKNOWN - PT DOES,NOT KNOW [Family Provider] - in less than 1 week
Prescriptions:
New
cyanocobalamin (vitamin B-12) 1,000 mcg Tablet
1,000 mcg PO DAILY Qty: 30 0RF
Continued
prednisone 10 MG tablet
5 mg PO HS
acetaminophen 325 MG tablet
650 mg PO Q4HPRN PRN (Reason: fever)
mirtazapine 15 MG tablet
30 mg PO HS
tamsulosin [Flomax] 0.4 MG capsule
0.8 mg PO HS
candesartan-hydrochlorothiazid 1 EACH tablet
1 tab PO DAILY
Rx Instructions:
32-12.5
famotidine 20 MG tablet
20 mg PO DAILYPRN PRN (Reason: gerd)
calcium carbonate [Antacid (calcium carbonate)] 1 TABLET tablet,chewable
1 tab PO Q6HPRN PRN (Reason: upset stomach)
nitroglycerin 0.4 MG tablet, sublingual
0.4 mg sublingual [id number] PRN (Reason: chest pain)
allopurinol 300 MG tablet
300 mg PO DAILY
rosuvastatin 5 MG tablet
5 mg PO HS
propranolol 60 MG tablet
60 mg PO DAILY
Eliquis 5 MG tablet
5 mg PO BID Qty: 0 0RF
propranolol 10 mg Tablet
10 mg PO DAILY PRN (Reason: chest pain)
omeprazole 20 mg Tablet,Delayed Release (Dr/Ec)
20 mg PO DAILY
alprazolam 0.5 MG tablet
0.5 mg PO HSPRN PRN (Reason: INSOMNIA) 0RF
Patient Comments:
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
Changed
lxwenuogoy-txwtanxagnksq-walt 50-325-40 mg Tablet
1 tab PO DAILYPRN PRN (Reason: headache\\) Qty: 0 0RF
Discharge Orders:
Discharge Patient (As Directed); Ordered 01/09/24
Ordered By: Josiah Barron
Discharge Date and Time
Discharge Date/Time: 01/09/24 16:38
Print Language: LUXEMBOURGER
--- NOTE | 2024-01-09 15:30 | CM ---
CHELSEY met with Dr. Berkowitz today prior to discharge. He had several tests done today and is pleased that they were done timely and he is able to return home. He drove himself to the hospital and plans to drive himself back to [facility] where he
lives alone in an apartment. Home or Outpatient PT was recommended at discharge, however Man has declined this. He is going to be aware of his speech, and if he feels it would help, he will contact his PCP for a Rx for speech therapy.
Plan: Discharge to home with no services. [facility] notified of his return this afternoon.
[2024-01-09] MEDS: VITAMIN B-12 1000 MCG PO (15:33)
[2024-01-09 15:52] VITALS: BP 122/59
== END 2024-01-09 16:38 | disposition home or self-care (01) | DRG 93 ==
LOC: 4 EAST ACU 04:24
PROVIDERS: Internal Medicine; ADMITTING PHYSICIAN Hospitalist; ATTENDING PHYSICIAN Internal Medicine; CONSULT PHYSICIAN Psychiatry & Neurology Neurology; EMERGENCY PHYSICIAN Emergency Medicine
DX: R47.1 Dysarthria and anarthria (principal); R47.81 Slurred speech; I48.0 Paroxysmal atrial fibrillation; E78.00 Pure hypercholesterolemia, unspecified; I10 Essential (primary) hypertension; I25.10 Atherosclerotic heart disease of native coronary artery without angina pectoris; K21.9 Gastro-esophageal reflux disease without esophagitis; R51.9 Headache, unspecified; M06.9 Rheumatoid arthritis, unspecified; M10.9 Gout, unspecified; M48.061 Spinal stenosis, lumbar region without neurogenic claudication; M51.36 Other intervertebral disc degeneration, lumbar region; G62.9 Polyneuropathy, unspecified; N40.0 Benign prostatic hyperplasia without lower urinary tract symptoms; I25.2 Old myocardial infarction; Z82.49 Family history of ischemic heart disease and other diseases of the circulatory system; Z87.442 Personal history of urinary calculi; Z95.5 Presence of coronary angioplasty implant and graft; Z88.8 Allergy status to other drugs, medicaments and biological substances; Z79.01 Long term (current) use of anticoagulants; Z79.52 Long term (current) use of systemic steroids; Z72.820 Sleep deprivation
CPT/HCPCS: 70450; 70551; 80048; 80061; 80076; 80184; 82607; 82746; 83036; 83735; 84443; 85027; 85652; 86140; 92610; 93005; 93306; 93880; 95816; 97116; 97129; 97162; 97166; 97530; 99285

== ENCOUNTER 2024-02-21 19:59 | Emergency (ER) | payer OTHER, SELFPAY ==
[2024-02-21 20:13] VITALS: BMI 29.0
--- NOTE | 2024-02-21 20:41 | ED.GENMED ---
History of Present Illness
General
Chief Complaint: Fall
Source: patient
Exam Limitations: none
Time Seen by Provider: 02/21/24 20:23
Nursing documentation reviewed up to this point in time: agreed with
History of Present Illness
History of Present Illness:
83-year-old male history of lumbar disc disease status post 2 lumbar back surgeries PAF on Eliquis prior TIA, told not to hold his anticoagulation as his TIA was in the setting of doses being held related to hemorrhoids, presents after a fall
twisted his bed landing on his back exacerbated his chronic back pain, did strike his head on a dresser, some mild headache for about 30 minutes which improved occurred about 6 hours ago, took some Tylenol now feeling better conceptional back pain
no nausea or vomiting, has not had his evening dose of Eliquis yet
Past History
Past History
ED Past Medical History: Arrthythmia (af), CAD, GERD, HTN, Hypercholesterolemia, [place] and Other (pancreatitis)
ED Past Surgical History: Orthopedic and Other ( intussusception x2 as a child)
Social History
Tobacco: Non-smoker
Alcohol: None
Drug: None
Personal:
Living: with family
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
Family History
Family History: Hypertension
Review of Systems
Review of Systems
All Other Systems: Not applicable
Respiratory: Reports no symptoms
Cardiac: Reports no symptoms
Musculoskeletal: Reports back pain
Neurological: Reports headache (Initially none now); Denies weakness or numbness
Phy Exam
Physical Exam
Physical Exam:
Physical Exam
General: no apparent distress, not acutely ill sitting in a chair reading a book
Neck: No tongue bite no posterior neck pain
Heart: Regular
Lungs: no acute respiratory distress.
Back: no step-off, mild positive paraspinal tenderness in the lumbar region, well-healed vertical scar in the lumbar
Neuro: alert and oriented. no focal neurological deficits
Skin: no rash
Psychiatric: well kept. interactive and cooperative
Extremities: no edema.
Course
Orders/Labs/Results
Orders:
Orders
02/21/24 20:12
CT Head W/o Iv Contrast Urgent
Comment:
Reason For Exam: head injury
02/21/24 20:31
EKG [Electrocardiogram (*1)] Routine
Reason for Study: Atrial Fibrillation
CT Cervical Spine W/o Iv Contr Urgent
Comment:
Reason For Exam: fall
EKG- Treatment ONCE
CR Lumbar Spine Comp Min 4 Vw* Urgent
Reason For Exam: fall
Vital Signs
Initial and Last Documented VS:
Initial Vital Signs
Pulse Resp Pulse Ox
54 18 97
02/21/24 20:02 02/21/24 20:02 02/21/24 20:02
Last Documented Vital Signs
Pulse Resp Pulse Ox
54 18 97
02/21/24 20:02 02/21/24 20:02 02/21/24 20:02
MDM/Problems Addressed
Differential Diagnosis Includes:
Slip and fall lumbar contusion intracerebral hemorrhage subdural hematoma epidural hematoma intracerebral hemorrhage
MDM/Problems Addressed:
Fall back pain mild head trauma in the setting of
Chronic conditions affecting care: Arrhythmia
Acute Exacerbation and/or Progression of Chronic Illness: Arrhythmia
*Critical Care Note
Total Time (30-74mins, 75-104mins- exclusive of procedures): Not Applicable
Update Note
Update Note:
Update, imaging reports noted, in light of his history I believe the risk and benefit for holding his anticoagulation versus maintaining current dose favors maintaining reviewed with patient
ED Attending Note
-
Portions of this chart may have been created with voice recognition software.� Occasional wrong word or��sound alike� substitutions may have occurred due to the inherent limitations of voice recognition software.
Discharge Plan
Departure
Patient Disposition: Home (Routine Discharge)
Date of Disposition: 02/21/24
Time of Disposition: 21:29
Patient with high blood pressure during this ER visit?: No
Condition: Good
Covid-19: Not Applicable
Discharge Problem:
Fall
Instructions: Head Injury in Adults (DC), Contusion (DC)
Prescriptions:
New
oxycodone 5 mg capsule
5 mg PO Q8H PRN (Reason: Pain) Qty: 14 0RF
No Action
prednisone 10 MG tablet
5 mg PO HS
acetaminophen 325 MG tablet
650 mg PO Q4HPRN PRN (Reason: fever)
mirtazapine 15 MG tablet
30 mg PO HS
tamsulosin [Flomax] 0.4 MG capsule
0.8 mg PO HS
candesartan-hydrochlorothiazid 1 EACH tablet
1 tab PO DAILY
Rx Instructions:
32-12.5
famotidine 20 MG tablet
20 mg PO DAILYPRN PRN (Reason: gerd)
calcium carbonate [Antacid (calcium carbonate)] 1 TABLET tablet,chewable
1 tab PO Q6HPRN PRN (Reason: upset stomach)
nitroglycerin 0.4 MG tablet, sublingual
0.4 mg sublingual [id number] PRN (Reason: chest pain)
allopurinol 300 MG tablet
300 mg PO DAILY
rosuvastatin 5 MG tablet
5 mg PO HS
propranolol 60 MG tablet
60 mg PO DAILY
Eliquis 5 MG tablet
5 mg PO BID Qty: 0 0RF
propranolol 10 mg Tablet
10 mg PO DAILY PRN (Reason: chest pain)
omeprazole 20 mg Tablet,Delayed Release (Dr/Ec)
20 mg PO DAILY
cyanocobalamin (vitamin B-12) 1,000 mcg Tablet
1,000 mcg PO DAILY Qty: 30 0RF
xwghpjtfsc-xlyazcrejlnox-pqag 50-325-40 mg Tablet
1 tab PO DAILYPRN PRN (Reason: headache\\) Qty: 0 0RF
alprazolam 0.5 MG tablet
0.5 mg PO HSPRN PRN (Reason: INSOMNIA) 0RF
Patient Comments:
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
Referrals:
Elroy Olguin MD [Family Provider] - Next open appointment
Activity Restrictions/Additional Instructions:
Continue your meds at current dosing, you can take oxycodone as needed for pains
Return to the ER if worsening headaches, confusion or any other concerns
Interventions
Interventions:
*Risk Screen - Suicide Last Done: 02/21/24 20:13
*General Assessment Last Done: 02/21/24 20:13
*Neglect/Abuse Screening Last Done: 02/21/24 20:14
ED-Musculoskeletal Assessment Last Done: 02/21/24 20:13
ED- Neurological Assessment Last Done: 02/21/24 20:13
ED-Skin Assessment Last Done: 02/21/24 20:13
Discharge Date and Time
Print Language: CAMEROONIAN
[2024-02-21] MEDS: PERCOCET 5/325 1 TABLET PO (21:52)
[2024-02-21 22:01] VITALS: BP 112/77
== END 2024-02-21 22:01 | disposition home or self-care (01) ==
LOC: EMR 19:59
PROVIDERS: EMERGENCY PHYSICIAN Emergency Medicine; FAMILY PHYSICIAN Internal Medicine
DX: S09.90XA Unspecified injury of head, initial encounter (principal); W06.XXXA Fall from bed, initial encounter; I48.91 Unspecified atrial fibrillation; I25.10 Atherosclerotic heart disease of native coronary artery without angina pectoris; K21.9 Gastro-esophageal reflux disease without esophagitis; I10 Essential (primary) hypertension; E78.00 Pure hypercholesterolemia, unspecified; I25.2 Old myocardial infarction; Z79.01 Long term (current) use of anticoagulants; Z82.49 Family history of ischemic heart disease and other diseases of the circulatory system; Z86.73 Personal history of transient ischemic attack (TIA), and cerebral infarction without residual deficits; Z87.19 Personal history of other diseases of the digestive system
CPT/HCPCS: 99284; 70450; 72110; 72125

== ENCOUNTER 2024-02-24 10:28 | Emergency (ER) | payer OTHER, SELFPAY ==
[2024-02-24 10:39] VITALS: BP 131/89
--- NOTE | 2024-02-24 11:49 | ED.GENMED ---
History of Present Illness
General
Chief Complaint: Musculo-Skeletal Complaint
Time Seen by Provider: 02/24/24 11:21
History of Present Illness
History of Present Illness:
83-year-old male presents the emergency department for evaluation of persistent low back pain after a fall 2 days ago. Was evaluated in this emergency department at which time x-rays were obtained that were unremarkable. He notes that he had
minimal pain the following day but gradually worsened and was particularly severe earlier this morning preventing her from sleeping. Denies any lower extremity paresthesias or loss of urinary continence. He questions whether we could obtain an MRI
today
Past History
Past History
ED Past Medical History: Arrthythmia (af), CAD, GERD, HTN, Hypercholesterolemia, [place] and Other (pancreatitis)
ED Past Surgical History: Orthopedic and Other ( intussusception x2 as a child)
Social History
Tobacco: Non-smoker
Alcohol: None
Drug: None
Personal:
Living: with family
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
Family History
Family History: Hypertension
Review of Systems
Review of Systems
Allergies reviewed?: Yes
All Other Systems: ROS reviewed and negative except as documented in HPI and ROS
Phy Exam
Physical Exam
Physical Exam:
GEN: Well appearing, NAD, WDWN
HEENT: Oral mucosa moist, no scleral icterus
Cardiac: Regular rate
Lung: No respiratory distress, no tachypnea
MSK: No gross deformity or injuries. No reproducible midline or paraspinous lumbar tenderness. Diminished left patellar reflex is reportedly baseline per patient. 4 out of 5 left knee flexion but otherwise bilateral lower extremity strength is 5
out of 5 in all deras
Skin: Good color, no pallor or jaundice, no rashes
Neuro: AO x3, moves all extremities freely
Psych: Calm, cooperative
Course
Vital Signs
Initial and Last Documented VS:
Initial Vital Signs
Temp Pulse BP Pulse Ox
98.3 F 60 131/89 96
02/24/24 10:39 02/24/24 10:39 02/24/24 10:39 02/24/24 10:39
Last Documented Vital Signs
Temp Pulse BP Pulse Ox
98.3 F 60 131/89 96
02/24/24 10:39 02/24/24 10:39 02/24/24 10:39 02/24/24 10:39
MDM/Problems Addressed
MDM/Problems Addressed:
Patient has no focal neurologic deficits. Imaging reviewed from 2 days prior showing no evidence for fracture. No indication for urgent MRI. Discussed supportive care
*Critical Care Note
Total Time (30-74mins, 75-104mins- exclusive of procedures): Not Applicable
ED Attending Note
-
Portions of this chart may have been created with voice recognition software.� Occasional wrong word or��sound alike� substitutions may have occurred due to the inherent limitations of voice recognition software.
Discharge Plan
Departure
Patient Disposition: Home (Routine Discharge)
Date of Disposition: 02/24/24
Time of Disposition: 11:49
Patient with high blood pressure during this ER visit?: No
Discharge Problem:
Low back pain
Instructions: Back Exercises, Low Back Pain ED
Prescriptions:
No Action
prednisone 10 MG tablet
5 mg PO HS
acetaminophen 325 MG tablet
650 mg PO Q4HPRN PRN (Reason: fever)
mirtazapine 15 MG tablet
30 mg PO HS
tamsulosin [Flomax] 0.4 MG capsule
0.8 mg PO HS
candesartan-hydrochlorothiazid 1 EACH tablet
1 tab PO DAILY
Rx Instructions:
32-12.5
famotidine 20 MG tablet
20 mg PO DAILYPRN PRN (Reason: gerd)
calcium carbonate [Antacid (calcium carbonate)] 1 TABLET tablet,chewable
1 tab PO Q6HPRN PRN (Reason: upset stomach)
nitroglycerin 0.4 MG tablet, sublingual
0.4 mg sublingual [id number] PRN (Reason: chest pain)
allopurinol 300 MG tablet
300 mg PO DAILY
rosuvastatin 5 MG tablet
5 mg PO HS
propranolol 60 MG tablet
60 mg PO DAILY
Eliquis 5 MG tablet
5 mg PO BID Qty: 0 0RF
propranolol 10 mg Tablet
10 mg PO DAILY PRN (Reason: chest pain)
omeprazole 20 mg Tablet,Delayed Release (Dr/Ec)
20 mg PO DAILY
cyanocobalamin (vitamin B-12) 1,000 mcg Tablet
1,000 mcg PO DAILY Qty: 30 0RF
abvryctkjq-ggckemijiptpj-ddms 50-325-40 mg Tablet
1 tab PO DAILYPRN PRN (Reason: headache\\) Qty: 0 0RF
oxycodone 5 mg capsule
5 mg PO Q8H PRN (Reason: Pain) Qty: 14 0RF
alprazolam 0.5 MG tablet
0.5 mg PO HSPRN PRN (Reason: INSOMNIA) 0RF
Patient Comments:
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
Referrals:
Elroy Olguin MD [Family Provider] -
Activity Restrictions/Additional Instructions:
Take the oxycodone that was previously prescribed for your pain
Interventions
Interventions:
*Risk Screen - Suicide Last Done: 02/24/24 10:39
*General Assessment Last Done: 02/24/24 10:39
*Neglect/Abuse Screening Last Done: 02/24/24 10:39
*Nursing Disposition Last Done: 02/24/24 12:01
ED-Musculoskeletal Assessment Last Done: 02/24/24 12:01
Discharge Date and Time
Discharge Date/Time: 02/24/24 12:02
Print Language: TURKMEN
== END 2024-02-24 12:02 | disposition home or self-care (01) ==
LOC: EMR 10:28
PROVIDERS: EMERGENCY PHYSICIAN Emergency Medicine; FAMILY PHYSICIAN Internal Medicine
DX: M54.50 Low back pain, unspecified (principal)
CPT/HCPCS: 99282

== ENCOUNTER 2024-03-03 23:22 | Emergency (ER) | payer OTHER, SELFPAY ==
[2024-03-03 23:22] VITALS: BMI 29.5
[2024-03-03 23:31] VITALS: BP 134/64
--- NOTE | 2024-03-04 00:54 | ED.GENMED ---
History of Present Illness
<Elliott (Lenka) SATNAM Guo - Last Filed: 03/04/24 01:53>
General
Chief Complaint: Sleep Disturbances
Source: patient
Exam Limitations: none
Time Seen by Provider: 03/04/24 00:07
Nursing documentation reviewed up to this point in time: agreed with
History of Present Illness
History of Present Illness:
Pt is an 83yo male with PMHx AFib, CAD s/p LAD stent, HTN/HLD, dorsalgia, IBS, H.pylori gastritis, hemorrhoids, anxiety and depression who presents to the ED with concerns over 'worsening pacing, restlessness, and lack of sleep' x 2 weeks. He
reports an inability to stop pacing and an inability to sit still. This has been worsening since his discharge from the hospital mid-December of this year, but has gotten to the point where he does not sleep for an entire night. This week, he has not
slept for 2 isolated nights. 3d ago, pt talked with his PCP who increased his mirtazapine to 45mg (from 30) and increased alprazolam to 0.7 (from 0.5). Pt endorses improvement of sx with use of alprazolam, he however, never took the increased dose
of mirtazapine d/t seeing 'akathisia' listed as a SE.
He states back at the start of this year he lost a few close friends, and has since attended 13 funerals. Middle of this year, his daughter was hospitalized x 7 weeks with multiple ED visits after her discharge. He admits to all this stress weighing
on him and him not having an outlet to talk to about this. States that when he has someone to talk to, his restlessness and pacing cease, such as when his son came over earlier this week. Currently denying symptoms in the ED while talking to staff.
Pt is here seeking assistance with symptoms and additionally seeking psychiatric services, as he has faced many barriers finding a provider with his current insurance/has been denied when trying to pay out of pocket.
He was started on mirtazapine 15mg x 10 years ago, increased 'a few years ago' to 30mg, with most recent increase to 45mg on 02/29/24.
He denies ever trying an SSRI or SNRI for depression.
He spoke with crisis last week asking for assistance finding a provider.
Pt drove himself in tonight.
Past History
<SATNAM Luong (Lenka) - Last Filed: 03/04/24 01:53>
Past History
ED Past Medical History: Arrthythmia (af), CAD, GERD, HTN, Hypercholesterolemia, [place] and Other (pancreatitis)
ED Past Surgical History: Cardiac, Orthopedic and Other ( intussusception x2 as a child)
Social History
Tobacco: Non-smoker
Alcohol: None
Drug: None
Personal:
Living: alone
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
Family History
Family History: Hypertension
Phy Exam
<SATNAM Luong (Lenka) - Last Filed: 03/04/24 01:53>
General Physical Exam
General Presentation: well appearing and no apparent distress
General age: appears stated age
General Skin: warm and dry
General Habitus: obese
General Mental: anxious
General Hydration: appears well hydrated
ENT Exam
ENT Exam: swallowing well
Cardiovascular Exam
Cardiovascular Exam: regular rate/rhythm, no edema, no gallop, no murmur, normal peripheral pulses and bradycardia
Pulmonary Exam
Pulmonary Exam: lungs clear, no respiratory distress, no rales, no crackles, no rhonchi, no wheezing and no cough
Neurological Exam
Neurological Exam: alert, oriented x3 and speech normal
Psychiatric Exam
Psychiatric Exam: anxious
Course
<SATNAM Luong (Lenka) - Last Filed: 03/04/24 01:53>
Orders/Labs/Results
Orders:
Orders
03/04/24 01:35
Crisis Consult Urgent
Reason for Consult: depression
Vital Signs
Initial and Last Documented VS:
Initial Vital Signs
Temp Pulse Resp BP Pulse Ox
97.8 F 58 22 134/64 98
03/03/24 23:31 03/03/24 23:31 03/03/24 23:31 03/03/24 23:31 03/03/24 23:31
Last Documented Vital Signs
Temp Pulse Resp BP Pulse Ox
97.8 F 58 22 134/64 98
03/03/24 23:31 03/03/24 23:31 03/03/24 23:31 03/03/24 23:31 03/04/24 00:09
<Lewis Aldridge DO - Last Filed: 03/04/24 03:27>
Orders/Labs/Results
Orders:
Orders
03/04/24 01:35
Crisis Consult Urgent
Reason for Consult: depression
Vital Signs
Initial and Last Documented VS:
Initial Vital Signs
Temp Pulse Resp BP Pulse Ox
97.8 F 58 22 134/64 98
03/03/24 23:31 03/03/24 23:31 03/03/24 23:31 03/03/24 23:31 03/03/24 23:31
Last Documented Vital Signs
Temp Pulse Resp BP Pulse Ox
97.8 F 58 22 134/64 98
03/03/24 23:31 03/03/24 23:31 03/03/24 23:31 03/03/24 23:31 03/04/24 00:09
<SATNAM Luong (Lenka) - Last Filed: 03/04/24 01:53>
MDM/Problems Addressed
Differential Diagnosis Includes:
83 yo male with hx of anxiety and depression, undergoing lots of loss and stressors for the past year, presenting with inability to sleep, restlessness, and pacing. He reports difficulties finding a psychiatrist.
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
Chronic conditions affecting care: Psychiatric illness (anxiety and depression)
<SATNAM Luong (Lenka) - Last Filed: 03/04/24 01:53>
*Critical Care Note
Total Time (30-74mins, 75-104mins- exclusive of procedures): Not Applicable
ED Attending Note
<SATNAM Luong (Lenka) - Last Filed: 03/04/24 01:53>
-
Portions of this chart may have been created with voice recognition software.� Occasional wrong word or��sound alike� substitutions may have occurred due to the inherent limitations of voice recognition software.
<Lewis Aldridge DO - Last Filed: 03/04/24 03:27>
ED Attending Note
Patient seen and examined by attending physician: Yes
I performed the substantive portion of visit, reviewed & personally made and approve the management plan that is documented in note by myself or PETER.: Yes
ED Attending Note:
Pleasant 83-year-old male presents with anxiety and sleep deprivation. Denies suicidal or homicidal ideation, intent, or plan. Patient spoke to crisis at length. Patient was given resources. Patient wishes to be discharged home. Patient was
seen in conjunction with the PA student. I have reviewed and agree with the history and treatment plan presented. On my independent physical exam, patient is awake, alert, and oriented x3, no acute distress. Mentating appropriately. Heart is
regular rate rhythm. Lungs are clear. Neurologically he is intact. Patient discharged home in improved condition.
Discharge Plan
Departure
Patient Disposition: Home (Routine Discharge)
Date of Disposition: 03/04/24
Time of Disposition: 03:19
Patient with high blood pressure during this ER visit?: Yes
Condition: Good
Discharge Problem:
Sleep deprivation, Anxiety
Instructions: Anxiety, Adult (DC), BLOOD PRESSURE
Prescriptions:
No Action
prednisone 10 MG tablet
5 mg PO HS
acetaminophen 325 MG tablet
650 mg PO Q4HPRN PRN (Reason: fever)
mirtazapine 15 MG tablet
30 mg PO HS
tamsulosin [Flomax] 0.4 MG capsule
0.8 mg PO HS
candesartan-hydrochlorothiazid 1 EACH tablet
1 tab PO DAILY
Rx Instructions:
32-12.5
famotidine 20 MG tablet
20 mg PO DAILYPRN PRN (Reason: gerd)
calcium carbonate [Antacid (calcium carbonate)] 1 TABLET tablet,chewable
1 tab PO Q6HPRN PRN (Reason: upset stomach)
nitroglycerin 0.4 MG tablet, sublingual
0.4 mg sublingual [id number] PRN (Reason: chest pain)
allopurinol 300 MG tablet
300 mg PO DAILY
rosuvastatin 5 MG tablet
5 mg PO HS
propranolol 60 MG tablet
60 mg PO DAILY
Eliquis 5 MG tablet
5 mg PO BID Qty: 0 0RF
propranolol 10 mg Tablet
10 mg PO DAILY PRN (Reason: chest pain)
omeprazole 20 mg Tablet,Delayed Release (Dr/Ec)
20 mg PO DAILY
cyanocobalamin (vitamin B-12) 1,000 mcg Tablet
1,000 mcg PO DAILY Qty: 30 0RF
eadkjkbhrc-bdxonnjplpyho-jghl 50-325-40 mg Tablet
1 tab PO DAILYPRN PRN (Reason: headache\\) Qty: 0 0RF
oxycodone 5 mg capsule
5 mg PO Q8H PRN (Reason: Pain) Qty: 14 0RF
alprazolam 0.5 MG tablet
0.5 mg PO HSPRN PRN (Reason: INSOMNIA) 0RF
Patient Comments:
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
Referrals:
[facility] [Outside]
Ethel,Mandi [Active] -
NONE,* [Active] -
Activity Restrictions/Additional Instructions:
It was a pleasure meeting you and taking part in your care. We hope for your continued healing and wellness.
Please read discharge instructions in their entirety. However, they are for general education and may not describe your exact diagnosis at discharge. Information on your ER visit and medical conditions were discussed with you along with appropriate
follow up information...
If indicated, please take your medications as instructed and indicated on discharge paperwork.
Please schedule a follow up appointment as directed. Call to schedule an appointment
Please return to the emergency department with ANY change in, persisting, or worsening of symptoms. If any of your symptoms do not improve, or persist, or become more severe within 6-12 hours, please return to the emergency department for further
care.
Please return to the emergency department if you develop a headache, neck pain/stiffness, fever greater than 100.4F, chest pain, shortness of breath, persistent nausea, vomiting, slurred speech, difficulty walking, numbness/tingling, weakness, signs
of infection or any other symptoms that are worrisome to you.
If you have any questions or concerns please do not hesitate to call the Hospital at or E-mail me directly at [email or web address]
Interventions
Interventions:
*Risk Screen - Suicide Last Done: 03/03/24 23:31
*Neglect/Abuse Screening Last Done: 03/03/24 23:31
Discharge Date and Time
Print Language: SLOVAK
[2024-03-04 01:00] VITALS: BP 149/64
[2024-03-04 03:38] VITALS: BP 116/72
== END 2024-03-04 04:12 | disposition home or self-care (01) ==
LOC: EMR 23:22
PROVIDERS: EMERGENCY PHYSICIAN Student in an Organized Health Care Education/Training Program; FAMILY PHYSICIAN Internal Medicine
DX: F41.9 Anxiety disorder, unspecified (principal); Z72.820 Sleep deprivation; Z73.3 Stress, not elsewhere classified; F32.A Depression, unspecified; M54.9 Dorsalgia, unspecified; I10 Essential (primary) hypertension; I25.10 Atherosclerotic heart disease of native coronary artery without angina pectoris; K21.9 Gastro-esophageal reflux disease without esophagitis; E78.00 Pure hypercholesterolemia, unspecified; I48.91 Unspecified atrial fibrillation; G62.9 Polyneuropathy, unspecified; I42.9 Cardiomyopathy, unspecified; I34.0 Nonrheumatic mitral (valve) insufficiency; K58.9 Irritable bowel syndrome, unspecified; M19.90 Unspecified osteoarthritis, unspecified site; M10.9 Gout, unspecified; M06.9 Rheumatoid arthritis, unspecified; M48.00 Spinal stenosis, site unspecified; I25.2 Old myocardial infarction; Z95.5 Presence of coronary angioplasty implant and graft; Z87.442 Personal history of urinary calculi; Z87.19 Personal history of other diseases of the digestive system; Z87.891 Personal history of nicotine dependence; Z79.01 Long term (current) use of anticoagulants; Z88.5 Allergy status to narcotic agent; Z88.8 Allergy status to other drugs, medicaments and biological substances
CPT/HCPCS: 99282

== ENCOUNTER 2024-03-04 16:45 | Emergency (ER) | payer OTHER, SELFPAY ==
[2024-03-04 16:52] VITALS: BP 125/71
--- NOTE | 2024-03-04 17:53 | ED.GENMED ---
History of Present Illness
General
Chief Complaint: Back Pain
Source: patient and records
Exam Limitations: none
Time Seen by Provider: 03/04/24 17:27
Nursing documentation reviewed up to this point in time: agreed with
History of Present Illness
History of Present Illness:
83-year-old male presents emergency department due to back pain and difficulty sleeping. His back pain feels improved when he sits in the chair here. He was concerned that his pain is worse when he is alone, and that he may be worried about being
alone. He is looking for a follow-up plan. No difficulty with bowel or bladder related to his back pain.
Past History
Past History
ED Past Medical History: Arrthythmia (af), CAD, GERD, HTN, Hypercholesterolemia, [place] and Other (pancreatitis)
ED Past Surgical History: Cardiac, Orthopedic and Other ( intussusception x2 as a child)
Social History
Tobacco: Non-smoker
Alcohol: None
Drug: None
Personal:
Living: alone
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
Family History
Family History: Hypertension
Review of Systems
Review of Systems
Allergies reviewed?: Yes
All Other Systems: Not applicable
Constitutional: Reports no symptoms
EENT: Reports no symptoms
Respiratory: Reports no symptoms
Cardiac: Reports no symptoms
ABD/GI: Reports no symptoms
: Reports no symptoms; Denies incontinence
Musculoskeletal: Reports back pain
Skin: Reports no symptoms
Neurological: Reports no symptoms
Endocrine: Reports no symptoms
Hematologic/Lymphatic: Reports no symptoms
Psychiatric: Reports no symptoms
Phy Exam
Physical Exam
Physical Exam:
Physical Exam
General: no apparent distress, not acutely ill
Neck: supple. no meningeal signs. normal posterior pharynx
Heart: s1/s2 regular rate and rhythm, no murmur. equal radial
pulses.
HEENT: Pupils equal round reactive to light, EOMI
Lungs: no acute respiratory distress. clear bilaterally
Abdomen: normal bowel sounds. not tender. no CVAT
Neuro: alert and oriented. no focal neurological deficits cranial nerves II through XII intact
Skin: no rash
Psychiatric: well kept. interactive and cooperative
Extremities: no edema. no calf tenderness. negative homans. good distal pulses
Course
Vital Signs
Initial and Last Documented VS:
Initial Vital Signs
Temp Pulse Resp BP Pulse Ox
98.7 F 60 16 125/71 96
03/04/24 16:52 03/04/24 16:52 03/04/24 16:52 03/04/24 16:52 03/04/24 16:52
Last Documented Vital Signs
Temp Pulse Resp BP Pulse Ox
98.7 F 60 16 125/71 96
03/04/24 16:52 03/04/24 16:52 03/04/24 16:52 03/04/24 16:52 03/04/24 16:52
MDM/Problems Addressed
Differential Diagnosis Includes:
Cauda equina, epidural abscess, radiculopathy
MDM/Problems Addressed:
83-year-old male with low back pain, no signs of cauda equina do not suspect epidural abscess, ambulates that difficulty. Abdomen exam benign. Stable for discharge.
*Pulse Oximetry
Patient hypoxic: no
*Critical Care Note
Total Time (30-74mins, 75-104mins- exclusive of procedures): Not Applicable
Data Reviewed
Further Testing Considered But Not Given:
MRI not indicated
Patient Management
Social determinants of health affecting care: Living situation
Escalation/DeEscalation of care consider admission/obs:
Admit not indicated
ED Attending Note
-
Portions of this chart may have been created with voice recognition software.� Occasional wrong word or��sound alike� substitutions may have occurred due to the inherent limitations of voice recognition software.
Discharge Plan
Departure
Patient Disposition: Home (Routine Discharge)
Date of Disposition: 03/04/24
Time of Disposition: 17:54
Patient with high blood pressure during this ER visit?: Yes
Condition: Good
Discharge Problem:
Low back pain
Instructions: Low Back Pain (DC), BLOOD PRESSURE
Prescriptions:
No Action
prednisone 10 MG tablet
5 mg PO HS
acetaminophen 325 MG tablet
650 mg PO Q4HPRN PRN (Reason: fever)
mirtazapine 15 MG tablet
30 mg PO HS
tamsulosin [Flomax] 0.4 MG capsule
0.8 mg PO HS
candesartan-hydrochlorothiazid 1 EACH tablet
1 tab PO DAILY
Rx Instructions:
32-12.5
famotidine 20 MG tablet
20 mg PO DAILYPRN PRN (Reason: gerd)
calcium carbonate [Antacid (calcium carbonate)] 1 TABLET tablet,chewable
1 tab PO Q6HPRN PRN (Reason: upset stomach)
nitroglycerin 0.4 MG tablet, sublingual
0.4 mg sublingual [id number] PRN (Reason: chest pain)
allopurinol 300 MG tablet
300 mg PO DAILY
rosuvastatin 5 MG tablet
5 mg PO HS
propranolol 60 MG tablet
60 mg PO DAILY
Eliquis 5 MG tablet
5 mg PO BID Qty: 0 0RF
propranolol 10 mg Tablet
10 mg PO DAILY PRN (Reason: chest pain)
omeprazole 20 mg Tablet,Delayed Release (Dr/Ec)
20 mg PO DAILY
cyanocobalamin (vitamin B-12) 1,000 mcg Tablet
1,000 mcg PO DAILY Qty: 30 0RF
yrcnvrkkjr-ozmugwadvipbm-czlc 50-325-40 mg Tablet
1 tab PO DAILYPRN PRN (Reason: headache\\) Qty: 0 0RF
oxycodone 5 mg capsule
5 mg PO Q8H PRN (Reason: Pain) Qty: 14 0RF
alprazolam 0.5 MG tablet
0.5 mg PO HSPRN PRN (Reason: INSOMNIA) 0RF
Patient Comments:
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
Referrals:
Ricky Corbett DO [Active] - Call in 1-3 days for appt
Sandi Marie MD [Active] - Call in 1-3 days for appt
Discharge Date and Time
Print Language: TURKISH
[2024-03-04 18:00] VITALS: BP 132/71
[2024-03-04 18:09] VITALS: BMI 26.9
== END 2024-03-04 18:43 | disposition home or self-care (01) ==
LOC: EMR 16:45
PROVIDERS: EMERGENCY PHYSICIAN Emergency Medicine; FAMILY PHYSICIAN Internal Medicine
DX: M54.50 Low back pain, unspecified (principal); I48.91 Unspecified atrial fibrillation; I25.10 Atherosclerotic heart disease of native coronary artery without angina pectoris; K21.9 Gastro-esophageal reflux disease without esophagitis; I10 Essential (primary) hypertension; E78.00 Pure hypercholesterolemia, unspecified; I25.2 Old myocardial infarction; Z82.49 Family history of ischemic heart disease and other diseases of the circulatory system
CPT/HCPCS: 99282

== ENCOUNTER 2024-04-13 19:38 | Emergency (ER) | payer OTHER, SELFPAY ==
[2024-04-13 19:38] VITALS: BMI 27.4
[2024-04-13 19:40] VITALS: BP 110/48
[2024-04-13 20:09] LABS: % Basophils 0.5 % (0-2); % Eosinophils 1.1 % (0-6); % Immature Granulocytes 1.1 % (0-0.5); % Lymphocytes 23.6 % (20.5-51.1); % Monocytes 8.6 % (1.7-9.3); % Neutrophils 65.1 % (42.2-75.2); Absolute Basophils 0.1 10^3/uL (0-0.2); Absolute Eosinophils 0.1 10^3/uL (0-0.7); Absolute Immature Granulocytes 0.1 10^3/uL (0-0.05); Absolute Lymphocytes 2.2 10^3/uL (1.2-3.4); Absolute Monocytes 0.8 10^3/uL (0.1-0.6); Hematocrit 41.9 % (39.0-52.0); Hemoglobin 14.3 g/dL (13.0-18.0); Mean Corp Hgb Conc. 34.1 g/dL (33.0-37.0); Mean Corpuscular Hgb 31.2 pg (27.0-31.0); Mean Corpuscular Volume 91.5 fL (80.0-94.0); Mean Platelet Volume 11.4 fL (7.4-10.4); Nucleated Red Blood Cells % 0 % (-); Platelet Count 185 10^3/uL (130-400); Red Blood Cell Count 4.58 10^6/uL (4.70-6.10); Red Cell Dist. Width 13.7 % (11.5-14.5); White Blood Cell Count 9.3 10^3/uL (4.8-10.8)
[2024-04-13 20:26] LABS: ALT (SGPT) 23 U/L (0-50); AST (SGOT) 27 U/L (17-59); Albumin 3.8 g/dl (3.5-5.0); Alkaline Phosphatase 46 U/L (38-126); Blood Urea Nitrogen 30 mg/dl (9-20); Calcium 9.6 mg/dl (8.4-10.2); Carbon Dioxide 27 mmol/L (22-30); Chloride 98 mmol/L (98-107); Glucose 105 mg/dl (70-99); Sodium 137 mmol/L (135-145); Total Bilirubin 0.7 mg/dl (0.2-1.3); Total Protein 6.3 g/dl (6.3-8.2); eGFR > 60.00
[2024-04-13 20:27] LABS: Troponin I < 0.012 ng/ml
--- NOTE | 2024-04-13 22:18 | ED.GENMED ---
History of Present Illness
General
Chief Complaint: Abdominal Pain
Source: patient
Exam Limitations: none
Time Seen by Provider: 04/13/24 21:59
History of Present Illness
History of Present Illness:
This is a 83 year old male that comes in with c/o abd pain. States that most of the day he had lower abd pain. States that he was in meetings all day and he had this constant pain in the lower abd. States that he did move his bowels several times
and there was formed and water stool. States that he came home and the pain increased. States that he just did not feel well. Then he started to think about people who have had VA's and he has a stent so he thought he better comes in. States that he
had some SOB. Denies any fever, chills, chest pain, nausea, vomiting, diarrhea, headache, dizziness, urinary burning.
Past History
Past History
ED Past Medical History: Arrthythmia (Atrial fib), CAD, GERD, HTN, Hypercholesterolemia, [place], Psychiatric (Anxiety, Depression) and Other (pancreatitis, Back pain, Neuropathy, Numbness and tingling arm and legs, cardiomyopathy, IBS, H-pylori, Renal
calculus, GOUT, Giant cell arteritis, )
ED Past Surgical History: Appendectomy, Cardiac (LAD stent), Orthopedic (Left ankle surgery. Left fibula surgery, Right bicep repair, Right trigger finger, Lumbar laminectomy, ), Tonsilectomy (Adenoids), Urological (Lithotripsy) and Other (
intussusception x2 as a child, Hemorrhoids, cataracts, Left hernia repair, )
Social History
Tobacco: Non-smoker
Alcohol: Occasional
Drug: None
Personal:
Living: assisted living
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
Family History
Family History: Hypertension
Review of Systems
Review of Systems
All Other Systems: ROS reviewed and negative except as documented in HPI and ROS
Constitutional: Reports no symptoms; Denies fever or chills
EENT: Reports no symptoms
Respiratory: Reports trouble breathing; Denies cough
Cardiac: Reports no symptoms; Denies chest pain
ABD/GI: Reports abdominal pain; Denies nausea, vomiting or diarrhea
: Reports no symptoms; Denies dysuria, frequency or urgency
Musculoskeletal: Reports no symptoms
Skin: Reports no symptoms
Neurological: Reports no symptoms; Denies dizzy or headache
Psychiatric: Reports no symptoms
Phy Exam
General Physical Exam
General Presentation: well appearing and no apparent distress
General age: appears stated age
General Skin: warm and dry
General Habitus: elderly
General Mental: alert
General Hydration: dry mucous membranes
ENT Exam
ENT Exam: TM's normal, pharynx normal and neck supple
Eye Exam
Eye Exam: EOMI
Cardiovascular Exam
Cardiovascular Exam: regular rate/rhythm, no murmur and normal peripheral pulses
Pulmonary Exam
Pulmonary Exam: lungs clear, no respiratory distress, no rales, chest non tender, no crackles, no rhonchi, no wheezing and no cough
Gastrointestinal Exam
Gastrointestinal Exam: normal bowel sounds, soft, no organomegaly, no pulsatile mass, non distended and tender (Slight left lower abd tenderness with palpation)
Musculoskeletal Exam
Musculoskeletal Exam: full ROM and edema (Slight nonpitting edema)
Skin Exam
Skin Exam: normal color, warm/dry, no rash and no petechia
Psychiatric Exam
Psychiatric Exam: normal mood/affect
Course
Orders/Labs/Results
Orders:
Orders
04/13/24 19:39
Electrocardiogram (*1) Urgent
Reason for Study: Chest Pain
EKG- Treatment ONCE
04/13/24 19:55
Complete Blood Count/With Diff Urgent
Comprehensive Metabolic Panel Urgent
Troponin I Urgent
04/13/24 22:16
EKG- Treatment ONCE
04/13/24 22:17
CT Abd/pelvis W Iv Cont Urgent
Comment:
Reason For Exam: Lower abd pain, more left sided
Urinalysis Reflex To Culture Urgent
Date Specimen was Collected: 04/13/24
Time Specimen was Collected: 22:32
04/13/24 22:21
CR Chest - 2 Views Urgent
Comment:
Reason For Exam: SOb
04/13/24 22:43
Troponin I Urgent
04/13/24 22:55
Electrocardiogram (*1) Urgent
Reason for Study: Abdominal Pain
Other Reason for Exam: Repeat with Troponin
Abnormal Lab Results
04/13/24
19:55
RBC 4.58 L 10^6/uL
(4.70-6.10)
MCH 31.2 H pg
(27.0-31.0)
MPV 11.4 H fL
(7.4-10.4)
Abs Immat Gran (auto) 0.1 H 10^3/uL
(0-0.05)
Absolute Monos (auto) 0.8 H 10^3/uL
(0.1-0.6)
Immature Gran % 1.1 H %
(0-0.5)
BUN 30 H mg/dl
(9-20)
Glucose 105 H mg/dl
(70-99)
04/13/24 19:55
04/13/24 19:55
Dehydration, Glucose nonfasting. Troponin <0.012
Second Troponin <0.012, uRINE NEGATIVE FOR INFECTION.
Vital Signs
Initial and Last Documented VS:
Initial Vital Signs
Temp Pulse Resp BP Pulse Ox
98.1 F 55 16 110/48 100
04/13/24 19:40 04/13/24 19:40 04/13/24 19:40 04/13/24 19:40 04/13/24 19:40
Last Documented Vital Signs
Temp Pulse Resp BP Pulse Ox
98.1 F 55 16 110/48 100
04/13/24 19:40 04/13/24 19:40 04/13/24 19:40 04/13/24 19:40 04/13/24 19:40
MDM/Problems Addressed
Differential Diagnosis Includes:
Colitis, Diverticulitis.
MDM/Problems Addressed:
This is a 83 year old male that comes in with c/o lower abd pain. States that this was constant most of the day and then it seemed to move up. States that he was concerned as he does have an LAD stent.
Will check labs, CT scan, give IV fluids. Offered patient medication but patient refused.
Back into see patient. Explained that both Troponin are normal. CT of the abd is normal. Explained that his blood work show dehydration. Patient to increase his water intake. Follow up with the family doctor. Return with any concerns .
Chronic conditions affecting care:
NA
Acute Exacerbation and/or Progression of Chronic Illness:
NA
*Radiology
Radiology exam reviewed: radiology read reviewed (Chest-No acute cardiopulmonary process CT night hawk- NO acute abnormality within the abdomen or pelvis. No bowel obstruction. Cholelithiasis without evidence of cholecystitis. Incidentals:
Diverticulosis without evidence of diverticulitis. NO obstructive uropathy. Hepatic hypodensites, too small) and all reviewed NAD by ED Provider (CT cont- to small to characterize. No abdominal aortic aneurysm. Age-indeterminate compression
deformity of T12 vertebral body with approximately 60% height loss centrally and 4mm of retropulsion. NO acute abnormality within the visualized lungs. NO acute abnormality within visualized soft tissues.)
*Pulse Oximetry
Patient hypoxic: no
*EKG
Interpreted by ED Provider?: Yes
Heart Rate: 54
Rate: bradycardiac
Rhythm: sinus
[place]: normal axis
Interval: normal interval
QRS Pattern: low voltage
Ischemia: no ischemia
*Critical Care Note
Total Time (30-74mins, 75-104mins- exclusive of procedures): Not Applicable
ED Attending Note
-
Portions of this chart may have been created with voice recognition software.� Occasional wrong word or��sound alike� substitutions may have occurred due to the inherent limitations of voice recognition software.
Discharge Plan
Departure
Patient Disposition: Home (Routine Discharge)
Date of Disposition: 04/14/24
Time of Disposition: 00:22
Patient with high blood pressure during this ER visit?: No
Condition: Good
Covid-19: Not Applicable
Discharge Problem:
Abdominal pain, Dehydration
Instructions: Dehydration, Adult ED, Abdominal Pain
Prescriptions:
No Action
prednisone 10 MG tablet
5 mg PO HS
acetaminophen 325 MG tablet
650 mg PO Q4HPRN PRN (Reason: fever)
mirtazapine 15 MG tablet
30 mg PO HS
tamsulosin [Flomax] 0.4 MG capsule
0.8 mg PO HS
candesartan-hydrochlorothiazid 1 EACH tablet
1 tab PO DAILY
Rx Instructions:
32-12.5
famotidine 20 MG tablet
20 mg PO DAILYPRN PRN (Reason: gerd)
calcium carbonate [Antacid (calcium carbonate)] 1 TABLET tablet,chewable
1 tab PO Q6HPRN PRN (Reason: upset stomach)
nitroglycerin 0.4 MG tablet, sublingual
0.4 mg sublingual [id number] PRN (Reason: chest pain)
allopurinol 300 MG tablet
300 mg PO DAILY
rosuvastatin 5 MG tablet
5 mg PO HS
propranolol 60 MG tablet
60 mg PO DAILY
Eliquis 5 MG tablet
5 mg PO BID Qty: 0 0RF
propranolol 10 mg Tablet
10 mg PO DAILY PRN (Reason: chest pain)
omeprazole 20 mg Tablet,Delayed Release (Dr/Ec)
20 mg PO DAILY
cyanocobalamin (vitamin B-12) 1,000 mcg Tablet
1,000 mcg PO DAILY Qty: 30 0RF
seinqfoskd-lfkzmfuqeleon-gzxd 50-325-40 mg Tablet
1 tab PO DAILYPRN PRN (Reason: headache\\) Qty: 0 0RF
oxycodone 5 mg capsule
5 mg PO Q8H PRN (Reason: Pain) Qty: 14 0RF
alprazolam 0.5 MG tablet
0.5 mg PO HSPRN PRN (Reason: INSOMNIA) 0RF
Patient Comments:
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
Referrals:
Elroy Olguin MD [Family Provider] - Follow up in 2-3 days
Activity Restrictions/Additional Instructions:
As discussed, your blood work shows dehydration. Please increase your water intake to 8-8oz glasses daily. Your CT is negative for any acute process and your chest x-ray was normal. Please follow up with the family doctor for recheck. IF YOU HAVE
INCREASED OR CHANGING PAIN, OR YOU HAVE ANY OTHER CONCERNS PLEASE RETURN TO THE EMERGENCY ROOM.
Interventions
Interventions:
*Risk Screen - Suicide Last Done: 04/13/24 19:40
Discharge Date and Time
Print Language: VIETNAMESE
[2024-04-13 23:17] LABS: Troponin I < 0.012 ng/ml
[2024-04-13 23:18] VITALS: BP 126/60
[2024-04-14 00:10] LABS: Urine Albumin Negative (Neg - Trace); Urine Bilirubin Negative (Negative); Urine Character Clear (Clear); Urine Color Yellow; Urine Glucose Negative (Negative); Urine Ketone Negative (Negative); Urine Leukocyte Negative (Negative); Urine Nitrite Negative (Negative); Urine Occult Blood Negative (Negative); Urine Specific Gravity 1.005 (<1.030); Urine Urobilinogen Negative (Neg - 1+); Urine pH 6.5 (5.0-9.0)
== END 2024-04-14 01:00 | disposition home or self-care (01) ==
LOC: EMR 19:38
PROVIDERS: Clinical Nurse Specialist Family Health; Emergency Medicine; EMERGENCY PHYSICIAN Emergency Medicine; FAMILY PHYSICIAN Internal Medicine
DX: R10.30 Lower abdominal pain, unspecified (principal); E86.0 Dehydration
CPT/HCPCS: 99285; 71046; 74177; 80053; 81003; 84484; 85025; 93005; Q9967

== ENCOUNTER 2024-04-16 20:40 | Emergency (ER) | payer OTHER, SELFPAY ==
[2024-04-16 20:44] VITALS: BP 138/68
--- NOTE | 2024-04-16 22:03 | ED.GENMED ---
History of Present Illness
General
Chief Complaint: Medication Reaction
Time Seen by Provider: 04/16/24 22:02
History of Present Illness
History of Present Illness:
HPI: The patient comes in because of anxiety related concerns. He recently was here while on mirtazapine and ultimately was felt to have akathisia due to mirtazapine use. Went he stopped the mirtazapine, he felt much better. More recently he was
feeling worse again. His psychiatrist had him increase his benzo and is now taking lorazepam 0.25 mg in the morning and afternoon and 0.5 mg at nighttime. He feels better when he has somebody to talk to. He lives alone and is .
EXAM:
GENERAL: Well appearing in no distress
HEENT: Moist oral mucosa
NEUROLOGIC: Excellent strength all extremities, no obvious coordination deficits
PSYCHIATRIC: Appropriate mental status, normal insight and judgement, but does appear somewhat
EXTREMITIES: Nontender, no edema, moves all extremities equally
SKIN: No rash, no lesions
TIME OF INITIAL ENCOUNTER: 10:15 PM
NUMBER AND COMPLEXITY OF PROBLEMS ADDRESSED AT THE ENCOUNTER
� Chronic conditions affecting care: A-fib, cardiomyopathy, CAD, high blood pressure, hyperlipidemia, neuropathy, IBS, anxiety/depression
� Acute Exacerbation and/or Progression of Chronic Illness: This is an acute exacerbation of a chronic problem
� Differential Diagnosis includes: Anxiety/depression, medication related
AMOUNT AND/OR COMPLEXITY OF DATA TO BE REVIEWED AND ANALYZED
� I performed an independent evaluation of and my interpretation is:
EKG:
CT:
X-rays:
Laboratory Studies:
Other:
� Review of other/old records: I reviewed records. The patient was seen here a couple days ago with abdominal pain. He was also seen here as a crisis patient 1 month ago. At that time it is documented that he was having
moments of anxiety while he was alone and has had several stressful experiences over the last few months. At that time it appears he was given coping mechanisms and outpatient resources to help find a therapist. I reviewed blood work from 3 days
ago which shows unremarkable CBC and relatively unremarkable chemistries and troponins x 2.
� Clinical information was obtained by an independent historian: Lives alone at home
� Prescriptions/Medications Considered but not given:
� Further testing considered but not performed:
RISK OF COMPLICATIONS AND/OR MORBIDITY OR MORTALITY OF PATIENT MANAGEMENT
� Social determinants of health affecting care:
� Discussion with other providers:
� Escalation of care including admission/observation vs risk of discharge considered: I did have very long discussion with patient. I generally recommend not using benzos if possible and he says that his psychiatrist is talking
about switching over to trazodone. I would agree with this. Overall he feels better after he was able to speak to someone tonight.
Past History
Past History
ED Past Medical History: Arrthythmia (Atrial fib), CAD, GERD, HTN, Hypercholesterolemia, [place], Psychiatric (Anxiety, Depression) and Other (pancreatitis, Back pain, Neuropathy, Numbness and tingling arm and legs, cardiomyopathy, IBS, H-pylori, Renal
calculus, GOUT, Giant cell arteritis, )
ED Past Surgical History: Appendectomy, Cardiac (LAD stent), Orthopedic (Left ankle surgery. Left fibula surgery, Right bicep repair, Right trigger finger, Lumbar laminectomy, ), Tonsilectomy (Adenoids), Urological (Lithotripsy) and Other (
intussusception x2 as a child, Hemorrhoids, cataracts, Left hernia repair, )
Social History
Tobacco: Non-smoker
Alcohol: Occasional
Drug: None
Personal:
Living: assisted living
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
Family History
Family History: Hypertension
Phy Exam
Physical Exam
Physical Exam:
See HPI
Course
Vital Signs
Initial and Last Documented VS:
Initial Vital Signs
Temp Pulse Resp BP Pulse Ox
97.9 F 56 22 138/68 98
04/16/24 20:44 04/16/24 20:44 04/16/24 20:44 04/16/24 20:44 04/16/24 20:44
Last Documented Vital Signs
Temp Pulse Resp BP Pulse Ox
97.9 F 56 22 138/68 98
04/16/24 20:44 04/16/24 20:44 04/16/24 20:44 04/16/24 20:44 04/16/24 20:44
*Critical Care Note
Total Time (30-74mins, 75-104mins- exclusive of procedures): Not Applicable
ED Attending Note
-
Portions of this chart may have been created with voice recognition software.� Occasional wrong word or��sound alike� substitutions may have occurred due to the inherent limitations of voice recognition software.
Discharge Plan
Departure
Patient Disposition: Home (Routine Discharge)
Date of Disposition: 04/16/24
Time of Disposition: 22:42
Patient with high blood pressure during this ER visit?: Yes
Discharge Problem:
Anxiety
Instructions: Anxiety, Adult (DC)
Prescriptions:
No Action
prednisone 10 MG tablet
5 mg PO HS
acetaminophen 325 MG tablet
650 mg PO Q4HPRN PRN (Reason: fever)
mirtazapine 15 MG tablet
30 mg PO HS
tamsulosin [Flomax] 0.4 MG capsule
0.8 mg PO HS
candesartan-hydrochlorothiazid 1 EACH tablet
1 tab PO DAILY
Rx Instructions:
32-12.5
famotidine 20 MG tablet
20 mg PO DAILYPRN PRN (Reason: gerd)
calcium carbonate [Antacid (calcium carbonate)] 1 TABLET tablet,chewable
1 tab PO Q6HPRN PRN (Reason: upset stomach)
nitroglycerin 0.4 MG tablet, sublingual
0.4 mg sublingual [id number] PRN (Reason: chest pain)
allopurinol 300 MG tablet
300 mg PO DAILY
rosuvastatin 5 MG tablet
5 mg PO HS
propranolol 60 MG tablet
60 mg PO DAILY
Eliquis 5 MG tablet
5 mg PO BID Qty: 0 0RF
propranolol 10 mg Tablet
10 mg PO DAILY PRN (Reason: chest pain)
omeprazole 20 mg Tablet,Delayed Release (Dr/Ec)
20 mg PO DAILY
cyanocobalamin (vitamin B-12) 1,000 mcg Tablet
1,000 mcg PO DAILY Qty: 30 0RF
iuumobtier-xqixlzvcqohwq-iymc 50-325-40 mg Tablet
1 tab PO DAILYPRN PRN (Reason: headache\\) Qty: 0 0RF
oxycodone 5 mg capsule
5 mg PO Q8H PRN (Reason: Pain) Qty: 14 0RF
alprazolam 0.5 MG tablet
0.5 mg PO HSPRN PRN (Reason: INSOMNIA) 0RF
Patient Comments:
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
Referrals:
Elroy Olguin MD [Family Provider] -
Activity Restrictions/Additional Instructions:
Follow-up with your psychiatrist tomorrow. Return here for any other concerns. In general, I recommend to do use lowest amount of benzos possible. I do agree with considering switching over to trazodone as opposed to benzos.
Interventions
Interventions:
*Risk Screen - Suicide Last Done: 04/16/24 20:44
Discharge Date and Time
Print Language: GERMAN
[2024-04-16 23:05] VITALS: BP 124/77
== END 2024-04-16 23:05 | disposition home or self-care (01) ==
LOC: EMR 20:40
PROVIDERS: EMERGENCY PHYSICIAN Emergency Medicine; FAMILY PHYSICIAN Internal Medicine
DX: F41.9 Anxiety disorder, unspecified (principal); E78.00 Pure hypercholesterolemia, unspecified; I10 Essential (primary) hypertension; I25.10 Atherosclerotic heart disease of native coronary artery without angina pectoris; I48.91 Unspecified atrial fibrillation; K21.9 Gastro-esophageal reflux disease without esophagitis; Z60.2 Problems related to living alone; Z63.5 Disruption of family by separation and divorce; Z79.899 Other long term (current) drug therapy
CPT/HCPCS: 99283

== ENCOUNTER 2024-04-22 22:27 | Emergency (ER) | payer OTHER, SELFPAY ==
[2024-04-22 22:32] VITALS: BP 98/67; BMI 28.7
[2024-04-22 22:40] VITALS: BP 98/67
[2024-04-22 22:52] LABS: % Basophils 0.4 % (0-2); % Eosinophils 0.7 % (0-6); % Immature Granulocytes 0.9 % (0-0.5); % Lymphocytes 20.9 % (20.5-51.1); % Monocytes 8.3 % (1.7-9.3); % Neutrophils 68.8 % (42.2-75.2); Absolute Eosinophils 0.1 10^3/uL (0-0.7); Absolute Immature Granulocytes 0.1 10^3/uL (0-0.05); Absolute Monocytes 0.8 10^3/uL (0.1-0.6); Absolute Neutrophils 6.5 10^3/uL (1.4-6.5); Hematocrit 37.2 % (39.0-52.0); Hemoglobin 13.3 g/dL (13.0-18.0); Mean Corp Hgb Conc. 35.8 g/dL (33.0-37.0); Mean Corpuscular Hgb 31.2 pg (27.0-31.0); Mean Corpuscular Volume 87.3 fL (80.0-94.0); Mean Platelet Volume 11.1 fL (7.4-10.4); Nucleated Red Blood Cells % 0 % (-); Platelet Count 166 10^3/uL (130-400); Red Blood Cell Count 4.26 10^6/uL (4.70-6.10); Red Cell Dist. Width 13.8 % (11.5-14.5); White Blood Cell Count 9.4 10^3/uL (4.8-10.8)
[2024-04-22 23:00] VITALS: BP 111/56
[2024-04-22 23:07] LABS: ALT (SGPT) 23 U/L (0-50); AST (SGOT) 26 U/L (17-59); Albumin 3.7 g/dl (3.5-5.0); Alkaline Phosphatase 38 U/L (38-126); Blood Urea Nitrogen 20 mg/dl (9-20); Calcium 9.2 mg/dl (8.4-10.2); Carbon Dioxide 22 mmol/L (22-30); Chloride 92 mmol/L (98-107); Estimated Creatinine Clearance 62 ml/min; Glucose 136 mg/dl (70-99); Potassium 3.8 mmol/L (3.5-5.1); Sodium 127 mmol/L (135-145); Total Protein 5.9 g/dl (6.3-8.2); eGFR > 60.00
[2024-04-23] VITALS: BP 113/57
--- NOTE | 2024-04-23 | EDRN ---
Patient ambulated to the restroom and back to bed, wanted to sit in chair, set patient up in chair, son is in room with patient.
--- NOTE | 2024-04-23 00:03 | ED.GENMED ---
History of Present Illness
<SATNAM Ospina - Last Filed: 04/23/24 00:27>
General
Chief Complaint: Weakness
Source: patient
Exam Limitations: none
Time Seen by Provider: 04/22/24 23:26
History of Present Illness
History of Present Illness:
Pt is am 83 y/o M with an extensive pmhx including back pain and neuropathy, lumbar surgery, balance issues, angina, and LAD stent presents with complaints of anxiety and mechanical leg weakness since this afternoon. The pt stated that after the
[employer] game he went to [employer] and while he was walking around, he felt generalized weakness in his legs. He felt that he was going to fall and caught himself on the shopping cart. He reported that his psychiatrist started him on Lexapro about 3 days
ago and advised that he take 5 mg and he may have taken 10 mg instead today. His psychiatrist also prescribed him an increased dose of Propranolol for his anxiety. Denies LOC, chest pain, SOB, vision changes, head injury.
The pt has been seeing a psychiatrist for anxiety and depression. He notes a divorce 3 years ago and the deaths of 3 close friends within a 72 hour in July this year. After the 3 funerals, he has had an increase in anxiety attacks. He states that
he has had an overall increase in anxiety, depression, loneliness, and insomnia. He has had several episodes of weakness especially in the past 3 months, one of which resulted in a fall on 02/21/24 with back and head injury and evaluation in the ED
with CT of the head and x-ray of the lumbar spine. He was seen in the ED on 04/13/24 for abdominal pain and blood in his stool and was discharged with abdominal pain and dehydration. He was last seen in ED 1 week ago for anxiety and akathisia
secondary to Mirtazapine, which he has since discontinued. The pt lives alone in an independent living home. He does not ambulate with any assistive devices.
Past History
<SATNAM Ospina - Last Filed: 04/23/24 00:27>
Past History
ED Past Medical History: Arrthythmia (Atrial fib), CAD, GERD, HTN, Hypercholesterolemia, IA, Psychiatric (Anxiety, Depression) and Other (pancreatitis, Back pain, Neuropathy, Numbness and tingling arm and legs, cardiomyopathy, IBS, H-pylori, Renal
calculus, GOUT, Giant cell arteritis, )
ED Past Surgical History: Appendectomy, Cardiac (LAD stent), Orthopedic (Left ankle surgery. Left fibula surgery, Right bicep repair, Right trigger finger, Lumbar laminectomy, ), Tonsilectomy (Adenoids), Urological (Lithotripsy) and Other (
intussusception x2 as a child, Hemorrhoids, cataracts, Left hernia repair, )
Social History
Tobacco: Non-smoker
Alcohol: Occasional
Drug: None
Personal:
Living: assisted living
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
Family History
Family History: Hypertension
Review of Systems
<SATNAM Ospina - Last Filed: 04/23/24 00:27>
Review of Systems
Constitutional: Reports sleep disturbance
EENT: Reports no symptoms
Respiratory: Reports no symptoms
Cardiac: Reports no symptoms
ABD/GI: Reports no symptoms
: Reports no symptoms
Musculoskeletal: Reports back pain
Skin: Reports no symptoms
Neurological: Reports weakness
Endocrine: Reports no symptoms
Hematologic/Lymphatic: Reports no symptoms
Psychiatric: Reports depression and anxiety
Phy Exam
<SATNAM Ospina - Last Filed: 04/23/24 00:27>
General Physical Exam
General Presentation: no apparent distress
General age: appears stated age
General Skin: warm and dry
General Habitus: normal
General Mental: alert
ENT Exam
ENT Exam: EOMI and neck supple
Eye Exam
Eye Exam: PERRL, EOMI, cornea clear and conjunctiva normal
Cardiovascular Exam
Cardiovascular Exam: no edema, normal peripheral pulses and bradycardia
Pulmonary Exam
Pulmonary Exam: lungs clear, no respiratory distress, no rales, chest non tender, no crackles, no rhonchi, no stridor, no wheezing and no cough
Gastrointestinal Exam
Gastrointestinal Exam: normal bowel sounds, non tender, soft and non distended
Neurological Exam
Neurological Exam: alert, oriented x3, dysarthric, motor weakness and slurred speech
Mental
Mental Status: oriented to person, oriented to place and oriented to time
Describe Speech: dysarthric speech
Musculoskeletal Exam
Musculoskeletal Exam: back pain and back tenderness
Skin Exam
Skin Exam: normal color and warm/dry
Psychiatric Exam
Psychiatric Exam: depressed
Course
<SATNAM Ospina - Last Filed: 04/23/24 00:27>
Orders/Labs/Results
Orders:
Orders
04/22/24 22:36
Electrocardiogram (*1) Urgent
Reason for Study: Other
Other Reason for Exam: weakness
EKG- Treatment ONCE
04/22/24 22:38
CMP [Comprehensive Metabolic Panel] Urgent
Complete Blood Count/With Diff Urgent
04/23/24 00:11
Orthostatic VS- Treatment ONCE
04/23/24 00:37
0.9% Sodium Chloride 1000 ml [Nss] 1,000 ml IV BOLUS
Abnormal Lab Results
04/22/24
22:38
RBC 4.26 L 10^6/uL
(4.70-6.10)
Hct 37.2 L %
(39.0-52.0)
MCH 31.2 H pg
(27.0-31.0)
MPV 11.1 H fL
(7.4-10.4)
Abs Immat Gran (auto) 0.1 H 10^3/uL
(0-0.05)
Absolute Monos (auto) 0.8 H 10^3/uL
(0.1-0.6)
Immature Gran % 0.9 H %
(0-0.5)
Sodium 127 L mmol/L
(135-145)
Chloride 92 L mmol/L
(98-107)
Glucose 136 H mg/dl
(70-99)
Total Protein 5.9 L g/dl
(6.3-8.2)
04/22/24 22:38
04/22/24 22:38
Vital Signs
Initial and Last Documented VS:
Initial Vital Signs
Temp Pulse Resp BP Pulse Ox
98.7 F 56 14 98/67 97
04/22/24 22:32 04/22/24 22:32 04/22/24 22:32 04/22/24 22:32 04/22/24 22:32
Last Documented Vital Signs
Temp Pulse Resp BP Pulse Ox
98.7 F 61 17 118/62 98
04/22/24 22:32 04/23/24 01:15 04/23/24 01:15 04/23/24 01:02 04/23/24 01:15
<Fina Wharton, DO - Last Filed: 04/23/24 01:53>
Orders/Labs/Results
Orders:
Orders
04/22/24 22:36
Electrocardiogram (*1) Urgent
Reason for Study: Other
Other Reason for Exam: weakness
EKG- Treatment ONCE
04/22/24 22:38
CMP [Comprehensive Metabolic Panel] Urgent
Complete Blood Count/With Diff Urgent
04/23/24 00:11
Orthostatic VS- Treatment ONCE
04/23/24 00:37
0.9% Sodium Chloride 1000 ml [Nss] 1,000 ml IV BOLUS
Abnormal Lab Results
04/22/24
22:38
RBC 4.26 L 10^6/uL
(4.70-6.10)
Hct 37.2 L %
(39.0-52.0)
MCH 31.2 H pg
(27.0-31.0)
MPV 11.1 H fL
(7.4-10.4)
Abs Immat Gran (auto) 0.1 H 10^3/uL
(0-0.05)
Absolute Monos (auto) 0.8 H 10^3/uL
(0.1-0.6)
Immature Gran % 0.9 H %
(0-0.5)
Sodium 127 L mmol/L
(135-145)
Chloride 92 L mmol/L
(98-107)
Glucose 136 H mg/dl
(70-99)
Total Protein 5.9 L g/dl
(6.3-8.2)
04/22/24 22:38
04/22/24 22:38
Vital Signs
Initial and Last Documented VS:
Initial Vital Signs
Temp Pulse Resp BP Pulse Ox
98.7 F 56 14 98/67 97
04/22/24 22:32 04/22/24 22:32 04/22/24 22:32 04/22/24 22:32 04/22/24 22:32
Last Documented Vital Signs
Temp Pulse Resp BP Pulse Ox
98.7 F 61 17 118/62 98
04/22/24 22:32 04/23/24 01:15 04/23/24 01:15 04/23/24 01:02 04/23/24 01:15
<SATNAM Ospina - Last Filed: 04/23/24 00:27>
MDM/Problems Addressed
Differential Diagnosis Includes:
Bradycardia
Dehydration
Anxiety attack
<SATNAM Ospina - Last Filed: 04/23/24 00:27>
*Critical Care Note
Total Time (30-74mins, 75-104mins- exclusive of procedures): Not Applicable
<Fina Wharton DO - Last Filed: 04/23/24 01:53>
*Pulse Oximetry
Patient hypoxic: no
*EKG
Interpreted by ED Provider?: Yes
Interpretation: normal
Comparison EKG: no changes
Rate: bradycardiac
Rhythm: sinus
Melissa: normal axis
Interval: normal interval
QRS Pattern: normal QRS
Ischemia: no ischemia
*Shingle Weaver Interpretation
Rate: bradycardiac
Interpretation: normal
Rhythm: sinus
ED Attending Note
<SATNAM Ospina - Last Filed: 04/23/24 00:27>
-
Portions of this chart may have been created with voice recognition software.� Occasional wrong word or��sound alike� substitutions may have occurred due to the inherent limitations of voice recognition software.
<Fina Wharton DO - Last Filed: 04/23/24 01:53>
ED Attending Note
Patient seen and examined by attending physician: Yes
I performed the substantive portion of visit, reviewed & personally made and approve the management plan that is documented in note by myself or PETER.: Yes
ED Attending Note:
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 He admits to marked increase in anxiety and depression
symptoms over the past year suffering losses of several close friends, undergoing a divorce 2 years ago.
He has been following with a psychiatrist, medications are being adjusted and this is his third visit to this ED since April 13 somewhat similar complaints of generalized anxiety and overall not feeling well.
On April 13 he complained of abdominal pain and diarrhea, labs were unremarkable save for mildly elevated BUN. CT abdomen pelvis was unremarkable.
He has had no further abdominal pain nor diarrhea but presented on April 16 with similar complaints of anxiety, difficulty sleeping, chronic worry. Overall feeling improved with just talking with ED provider and he was discharged to home
without further testing.
Since that visit he has followed up with his psychiatrist and was started on Lexapro April 20. 10 mg tablet, instructed to take 1/2 tablet daily.
He is also chronically maintained on propranolol 60 mg once daily and was recommended by psychiatrist to take an extra dose of propranolol, 10 mg once daily as needed for anxiety symptoms.
He is unsure if he took an extra dose of Lexapro today, concerned that his pill count is off by 1 tablet.
With ongoing anxiety he did take an extra dose of propranolol, 10 mg yesterday but no additional doses throughout the day today.
He was feeling fairly well throughout the day with after the [employer] game when shopping at the grocery store and while doing so he began with generalized weakness, feeling that his knees were weak causing him to lean on the shopping cart. He denies
dizziness nor lightheadedness, no nausea nor vomiting, no palpitations, no diaphoresis. Symptoms resolved without return.
He does admit to moderately decreased appetite a month ago with some weight loss last month, but throughout the month of March his appetite has improved and his weight has stabilized.
He denies alcohol use.
No further abdominal pain or diarrhea.
GENERAL: 83-year-old gentleman appears his stated age, bright and alert, pleasant, appears in no acute distress. Son is accompanying.
EYE: anicteric
NECK: Supple, nontender, no meningismus, no significant adenopathy.
ENT: oral mucosa is moist. No rhinorrhea.
CARDIAC: Regular rate and rhythm. no murmur.
LUNGS: Clear breath sounds bilaterally, no acute respiratory distress, no wheezes/rales/rhonchi
ABDOMEN: Soft, nondistended, without focal tenderness, normoactive BS.
NEUROLOGICAL: Alert and oriented x3, no focal neuro deficits. Gait is steady.
SKIN: Warm and dry, normal color, skin intact. No rash.
MUSCULOSKELETAL: No C/C/E. peripheral pulses are full and equal b/l. No palpable tenderness.
PSYCH: Normal and appropriate interaction. Admits to chronic worry, anxiety. Denies suicidal thoughts or plan. Denies hallucinations nor confusion.
Initial vital signs concerning for mild hypotension with systolic blood pressure reported at 98.
Due to complaints of weakness will check orthostatic vital signs. Concern for orthostatic hypotension.
EKG shows sinus bradycardia, similar and unchanged from previous. There is some concern for symptomatic progressive bradycardia/heart block but thus far no episodes noted since arrival to the ED.
Labs showed normal CBC, mild hyponatremia at 127 which is new compared to previous. Lexapro can be cause for hyponatremia but less likely with initiation of this just 2 days ago.
Reassuring that patient has gotten up out of bed ambulated to and from the bathroom without difficulty and without symptomatology.
He is however mildly orthostatic upon standing but remains asymptomatic.
Due to mild orthostasis with standing, mild hyponatremia will give an IV bolus of normal saline.
Going forward, discussed importance of remaining well-hydrated.
With somewhat soft blood pressure initially recommend he avoid additional doses of propranolol.
Would recommend prompt follow-up with his PCP as well as psychiatrist. Recommend follow-up with his primary livestock haulier as well.
Discharge Plan
Departure
Patient Disposition: Home (Routine Discharge)
Date of Disposition: 04/23/24
Time of Disposition: 01:47
Patient with high blood pressure during this ER visit?: No
Condition: Good
Discharge Problem:
Generalized weakness, mild orthostasis, mild hyponatremia
Instructions: Orthostatic hypotension, Generalized Weakness (DC), Hypovolemia in adults
Prescriptions:
Discontinued
mirtazapine 15 MG tablet
30 mg PO HS
propranolol 10 mg Tablet
10 mg PO DAILY PRN (Reason: chest pain)
No Action
prednisone 10 MG tablet
5 mg PO HS
acetaminophen 325 MG tablet
650 mg PO Q4HPRN PRN (Reason: fever)
tamsulosin [Flomax] 0.4 MG capsule
0.8 mg PO HS
candesartan-hydrochlorothiazid 1 EACH tablet
1 tab PO DAILY
Rx Instructions:
32-12.5
famotidine 20 MG tablet
20 mg PO DAILYPRN PRN (Reason: gerd)
calcium carbonate [Antacid (calcium carbonate)] 1 TABLET tablet,chewable
1 tab PO Q6HPRN PRN (Reason: upset stomach)
nitroglycerin 0.4 MG tablet, sublingual
0.4 mg sublingual [id number] PRN (Reason: chest pain)
allopurinol 300 MG tablet
300 mg PO DAILY
rosuvastatin 5 MG tablet
5 mg PO HS
propranolol 60 MG tablet
60 mg PO DAILY
Eliquis 5 MG tablet
5 mg PO BID Qty: 0 0RF
omeprazole 20 mg Tablet,Delayed Release (Dr/Ec)
20 mg PO DAILY
cyanocobalamin (vitamin B-12) 1,000 mcg Tablet
1,000 mcg PO DAILY Qty: 30 0RF
ppbiofpfll-iqbpeejzbucdo-kdpn 50-325-40 mg Tablet
1 tab PO DAILYPRN PRN (Reason: headache\\) Qty: 0 0RF
oxycodone 5 mg capsule
5 mg PO Q8H PRN (Reason: Pain) Qty: 14 0RF
alprazolam 0.5 MG tablet
0.5 mg PO HSPRN PRN (Reason: INSOMNIA) 0RF
Patient Comments:
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
Referrals:
Herson Huang MD [Active] - Call in 1-3 days for appt
Elroy Olguin MD [Family Provider] -
Interventions
Interventions:
*Risk Screen - Suicide Last Done: 04/22/24 22:32
*General Assessment Last Done: 04/22/24 22:32
*Neglect/Abuse Screening Last Done: 04/22/24 22:32
ED- Fall Risk Assessment Last Done: 04/23/24 00:00
ED- Cardiac Assessment Last Done: 04/23/24 00:00
ED- Neurological Assessment Last Done: 04/23/24 00:00
ED- Pulmonary Assessment Last Done: 04/23/24 00:00
Discharge Date and Time
Print Language: CAMBODIAN
[2024-04-23 00:11] VITALS: BP 108/56; BP 138/67; BP 139/74; PULSE 56; PULSE 59; PULSE 65
[2024-04-23 00:21] VITALS: BP 138/67
[2024-04-23 00:23] VITALS: BP 139/74
[2024-04-23 00:25] VITALS: BP 108/56
[2024-04-23] MEDS: NSS 1000 IV (00:45)
[2024-04-23 01:02] VITALS: BP 118/62
--- NOTE | 2024-04-23 02:10 | EDRN ---
Upon pt.'s discharge, pt. asked RN if she knew where pt.'s 'white jacket' was. This RN had not seen such jacket, as this RN was not here when ambulance dropped off pt. Per pt., 'I think I remember having it on the ambulance'. RN checked laundry bin
and entire room, no jacket was visualized by this RN. Pt. and family was provided [facility] phone number and the Medic number that was written on paperwork, told to call in AM to see if possibly left in ambulance.
== END 2024-04-23 02:35 | disposition home or self-care (01) ==
LOC: EMR 22:27
PROVIDERS: EMERGENCY PHYSICIAN Emergency Medicine; FAMILY PHYSICIAN Internal Medicine
DX: R53.1 Weakness (principal); I48.0 Paroxysmal atrial fibrillation; E87.1 Hypo-osmolality and hyponatremia; I95.1 Orthostatic hypotension; E78.00 Pure hypercholesterolemia, unspecified; I25.10 Atherosclerotic heart disease of native coronary artery without angina pectoris; F32.A Depression, unspecified; F41.9 Anxiety disorder, unspecified
CPT/HCPCS: 99284; 96360; 96361; 80053; 85025; 93005

== ENCOUNTER 2024-04-29 08:09 | Inpatient (IN) | payer OTHER, SELFPAY ==
[2024-04-28 12:43] VITALS: BP 151/70
[2024-04-28 13:24] VITALS: BP 161/79
[2024-04-28 13:25] VITALS: BMI 27.8
[2024-04-28 13:49] LABS: % Basophils 0.5 % (0-2); % Eosinophils 0.5 % (0-6); % Immature Granulocytes 0.8 % (0-0.5); % Lymphocytes 21.2 % (20.5-51.1); % Monocytes 13.7 % (1.7-9.3); % Neutrophils 63.3 % (42.2-75.2); Absolute Immature Granulocytes 0.1 10^3/uL (0-0.05); Absolute Lymphocytes 1.3 10^3/uL (1.2-3.4); Absolute Monocytes 0.8 10^3/uL (0.1-0.6); Absolute Neutrophils 3.7 10^3/uL (1.4-6.5); Hemoglobin 13.7 g/dL (13.0-18.0); Mean Corp Hgb Conc. 36.1 g/dL (33.0-37.0); Mean Corpuscular Hgb 31.2 pg (27.0-31.0); Mean Corpuscular Volume 86.6 fL (80.0-94.0); Mean Platelet Volume 11.2 fL (7.4-10.4); Nucleated Red Blood Cells % 0 % (-); Platelet Count 162 10^3/uL (130-400); Red Blood Cell Count 4.39 10^6/uL (4.70-6.10); Red Cell Dist. Width 14.1 % (11.5-14.5); White Blood Cell Count 5.9 10^3/uL (4.8-10.8)
[2024-04-28 13:58] LABS: INR 1.14; PT 14.4 Sec (11.4-14.6)
[2024-04-28 14:04] LABS: ALT (SGPT) 23 U/L (0-50); AST (SGOT) 27 U/L (17-59); Albumin 3.9 g/dl (3.5-5.0); Alkaline Phosphatase 45 U/L (38-126); Blood Urea Nitrogen 18 mg/dl (9-20); Calcium 9.3 mg/dl (8.4-10.2); Carbon Dioxide 23 mmol/L (22-30); Chloride 93 mmol/L (98-107); Estimated Creatinine Clearance 62 ml/min; Glucose 107 mg/dl (70-99); Potassium 3.6 mmol/L (3.5-5.1); Sodium 128 mmol/L (135-145); Total Bilirubin 0.6 mg/dl (0.2-1.3); Total Protein 6.2 g/dl (6.3-8.2); eGFR > 60.00
--- NOTE | 2024-04-28 14:15 | ED.GENMED ---
History of Present Illness
<STEFANIA Joaquin - Last Filed: 04/28/24 16:47>
General
Chief Complaint: Abdominal Symptoms
Source: patient
Exam Limitations: none
Time Seen by Provider: 04/28/24 13:16
Nursing documentation reviewed up to this point in time: agreed with
History of Present Illness
History of Present Illness:
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 He has a history of paroxysmal A-fib on Eliquis high cholesterol last, cardiomyopathy [place] hypertension hyperlipidemia stent presents to the ER for evaluation.
Patient complains of feeling very weak. He reports he has had a lot of loose stools last night was not able to make it to the bathroom. He reports it was watery brown stool. He does suffer from depression and anxiety and was recently started on
escitalopram 03/2824 by his new psychiatrist. Patient was previously on mirtazapine but that was discontinued in February.
Patient was seen in the ER on April 22 for weakness as well.
Past History
<STEFANIA Joaquin - Last Filed: 04/28/24 16:47>
Past History
ED Past Medical History: Arrthythmia (Atrial fib), CAD, GERD, HTN, Hypercholesterolemia, [place], Psychiatric (Anxiety, Depression) and Other (pancreatitis, Back pain, Neuropathy, Numbness and tingling arm and legs, cardiomyopathy, IBS, H-pylori, Renal
calculus, GOUT, Giant cell arteritis, )
ED Past Surgical History: Appendectomy, Cardiac (LAD stent), Orthopedic (Left ankle surgery. Left fibula surgery, Right bicep repair, Right trigger finger, Lumbar laminectomy, ), Tonsilectomy (Adenoids), Urological (Lithotripsy) and Other (
intussusception x2 as a child, Hemorrhoids, cataracts, Left hernia repair, )
Social History
Tobacco: Non-smoker
Alcohol: Occasional
Drug: None
Personal:
Living: assisted living
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
Family History
Family History: Hypertension
Review of Systems
<STEFANIA Joaquin - Last Filed: 04/28/24 16:47>
Review of Systems
Allergies reviewed?: Yes
All Other Systems: ROS reviewed and negative except as documented in HPI and ROS
Constitutional: Reports fatigue; Denies fever
EENT: Reports no symptoms
Respiratory: Reports no symptoms
ABD/GI: Reports diarrhea; Denies nausea or vomiting
: Reports no symptoms
Musculoskeletal: Reports no symptoms
Skin: Reports no symptoms
Hematologic/Lymphatic: Reports no symptoms
Psychiatric: Reports no symptoms
Phy Exam
<STEFANIA Joaquin - Last Filed: 04/28/24 16:47>
General Physical Exam
General Presentation: no apparent distress
General age: appears stated age
General Skin: warm and dry
General Habitus: elderly
General Mental: alert
General Hydration: dry mucous membranes
Cardiovascular Exam
Cardiovascular Exam: regular rate/rhythm, no murmur and normal peripheral pulses
Pulmonary Exam
Pulmonary Exam: lungs clear and no respiratory distress
Neurological Exam
Neurological Exam: alert and oriented x3
Musculoskeletal Exam
Musculoskeletal Exam: full ROM
Skin Exam
Skin Exam: normal color and warm/dry
Psychiatric Exam
Psychiatric Exam: normal mood/affect
Course
<STEFANIA Joaquin - Last Filed: 04/28/24 16:47>
Orders/Labs/Results
Orders:
Orders
04/28/24 13:38
Electrocardiogram (*1) Urgent
Reason for Study: Other
Other Reason for Exam: weakness
04/28/24 13:40
EKG- Treatment ONCE
04/28/24 13:41
Complete Blood Count/With Diff Urgent
Comprehensive Metabolic Panel Urgent
Prothrombin Time Urgent
Troponin I Urgent
04/28/24 14:21
Stool Culture Urgent
[facility] Source: Feces/Stool
Specimen Description:
Abnormal Lab Results
04/28/24
13:41
RBC 4.39 L 10^6/uL
(4.70-6.10)
Hct 38.0 L %
(39.0-52.0)
MCH 31.2 H pg
(27.0-31.0)
MPV 11.2 H fL
(7.4-10.4)
Abs Immat Gran (auto) 0.1 H 10^3/uL
(0-0.05)
Absolute Monos (auto) 0.8 H 10^3/uL
(0.1-0.6)
Immature Gran % 0.8 H %
(0-0.5)
Monocytes % 13.7 H %
(1.7-9.3)
Sodium 128 L mmol/L
(135-145)
Chloride 93 L mmol/L
(98-107)
Glucose 107 H mg/dl
(70-99)
Total Protein 6.2 L g/dl
(6.3-8.2)
04/28/24 13:41
04/28/24 13:41
Vital Signs
Initial and Last Documented VS:
Initial Vital Signs
Temp Pulse Resp BP Pulse Ox
98.1 F 55 16 151/70 98
04/28/24 12:43 04/28/24 12:43 04/28/24 12:43 04/28/24 12:43 04/28/24 12:43
Last Documented Vital Signs
Temp Pulse Resp BP Pulse Ox
98.1 F 65 17 161/79 98
04/28/24 12:43 04/28/24 15:05 04/28/24 15:05 04/28/24 13:24 04/28/24 15:05
Patient Care Manager consulted with Physician
Patient Care Manager consulted with physician?: Yes
Name of Physician Consulted: michael
<Ariana Lopez MD - Last Filed: 04/28/24 16:13>
Orders/Labs/Results
Orders:
Orders
04/28/24 13:38
Electrocardiogram (*1) Urgent
Reason for Study: Other
Other Reason for Exam: weakness
04/28/24 13:40
EKG- Treatment ONCE
04/28/24 13:41
Complete Blood Count/With Diff Urgent
Comprehensive Metabolic Panel Urgent
Prothrombin Time Urgent
Troponin I Urgent
04/28/24 14:21
Stool Culture Urgent
[facility] Source: Feces/Stool
Specimen Description:
Abnormal Lab Results
04/28/24
13:41
RBC 4.39 L 10^6/uL
(4.70-6.10)
Hct 38.0 L %
(39.0-52.0)
MCH 31.2 H pg
(27.0-31.0)
MPV 11.2 H fL
(7.4-10.4)
Abs Immat Gran (auto) 0.1 H 10^3/uL
(0-0.05)
Absolute Monos (auto) 0.8 H 10^3/uL
(0.1-0.6)
Immature Gran % 0.8 H %
(0-0.5)
Monocytes % 13.7 H %
(1.7-9.3)
Sodium 128 L mmol/L
(135-145)
Chloride 93 L mmol/L
(98-107)
Glucose 107 H mg/dl
(70-99)
Total Protein 6.2 L g/dl
(6.3-8.2)
04/28/24 13:41
04/28/24 13:41
Vital Signs
Initial and Last Documented VS:
Initial Vital Signs
Temp Pulse Resp BP Pulse Ox
98.1 F 55 16 151/70 98
04/28/24 12:43 04/28/24 12:43 04/28/24 12:43 04/28/24 12:43 04/28/24 12:43
Last Documented Vital Signs
Temp Pulse Resp BP Pulse Ox
98.1 F 65 17 161/79 98
04/28/24 12:43 04/28/24 15:05 04/28/24 15:05 04/28/24 13:24 04/28/24 15:05
<STEFANIA Joaquin - Last Filed: 04/28/24 16:47>
MDM/Problems Addressed
Differential Diagnosis Includes:
Not limited to electrolyte abnormality dehydration weakness, depression
MDM/Problems Addressed:
Patient is an 83-year-old male who presents to the ER for ration of continued weakness. Patient has been struggling with depression and weakness in fact he was seen here as documented April 22 for weakness. At that time he did have a mildly
low sodium and does present back to the mildly low sodium as well. He however denies any fevers and is nontoxic. He reports he lives alone and is having difficulty getting around. He is adamant that he cannot go home and is concerned about his
continued weakness. He does distinctly talk about his depression his medication in fact was recently changed by his psychiatrist. I do feel that this is a component of depression as well. Offer crisis by ED physician who evaluated pt however he
does not speak with them.
<STEFANIA Joaquin - Last Filed: 04/28/24 16:47>
*Critical Care Note
Total Time (30-74mins, 75-104mins- exclusive of procedures): Not Applicable
ED Attending Note
<STEFANIA Joaquin - Last Filed: 04/28/24 16:47>
-
Portions of this chart may have been created with voice recognition software.� Occasional wrong word or��sound alike� substitutions may have occurred due to the inherent limitations of voice recognition software.
<Ariana Lopez MD - Last Filed: 04/28/24 16:13>
ED Attending Note
Patient seen and examined by attending physician: Yes
I performed the substantive portion of visit, reviewed & personally made and approve the management plan that is documented in note by myself or PETER.: Yes
ED Attending Note:
Patient appears nontoxic in no acute distress. Patient has an intact neurological exam. His lungs sound clear. Patient was able to walk with a cane but did so somewhat unsteadily. Patient is insistent that there is something going on that is
making him to feel weaker. He is refusing to go home. He reports he lives alone and he feels he needs to stay in the hospital for this to be further worked up.
Discharge Plan
Departure
Patient Disposition: Admit
Date of Disposition: 04/28/24
Time of Disposition: 16:23
Admit to: Med/Surg
Admit to doctor: hospitaliast
Presentation/result/management discussed w/ accepting MD/DO: Hospitalist
Patient with high blood pressure during this ER visit?: Yes
Condition: Fair
Covid-19: Not Applicable
Discharge Problem:
Weakness, Acute hyponatremia, Depression
Prescriptions:
No Action
prednisone 10 MG tablet
5 mg PO HS
acetaminophen 325 MG tablet
650 mg PO Q4HPRN PRN (Reason: fever)
tamsulosin [Flomax] 0.4 MG capsule
0.8 mg PO HS
candesartan-hydrochlorothiazid 1 EACH tablet
1 tab PO DAILY
Rx Instructions:
32-12.5
famotidine 20 MG tablet
20 mg PO DAILYPRN PRN (Reason: gerd)
calcium carbonate [Antacid (calcium carbonate)] 1 TABLET tablet,chewable
1 tab PO Q6HPRN PRN (Reason: upset stomach)
nitroglycerin 0.4 MG tablet, sublingual
0.4 mg sublingual [id number] PRN (Reason: chest pain)
allopurinol 300 MG tablet
300 mg PO DAILY
rosuvastatin 5 MG tablet
5 mg PO HS
propranolol 60 MG tablet
60 mg PO DAILY
Eliquis 5 MG tablet
5 mg PO BID Qty: 0 0RF
omeprazole 20 mg Tablet,Delayed Release (Dr/Ec)
20 mg PO DAILY
cyanocobalamin (vitamin B-12) 1,000 mcg Tablet
1,000 mcg PO DAILY Qty: 30 0RF
yasbbfgetx-lxzgjjfuirdxm-brcz 50-325-40 mg Tablet
1 tab PO DAILYPRN PRN (Reason: headache\\) Qty: 0 0RF
oxycodone 5 mg capsule
5 mg PO Q8H PRN (Reason: Pain) Qty: 14 0RF
alprazolam 0.5 MG tablet
0.5 mg PO HSPRN PRN (Reason: INSOMNIA) 0RF
Patient Comments:
pharmacy berry picker on 12/08/20 #30
Referrals:
Elroy Olguin MD [Family Provider] -
Interventions
Interventions:
*Risk Screen - Suicide Last Done: 04/28/24 12:43
*General Assessment Last Done: 04/28/24 14:16
*Neglect/Abuse Screening Last Done: 04/28/24 12:43
*ED COVID-19 Vaccine History Last Done: 04/28/24 14:16
RM-Jbscyv-Hugxumenet Assessment Last Done: 04/28/24 13:28
Discharge Date and Time
Print Language: SLOVAK
[2024-04-28 14:16] LABS: Troponin I < 0.012 ng/ml
[2024-04-28 16:43] VITALS: BP 161/78
[2024-04-28 17:13] LABS: Urine Albumin Negative (Neg - Trace); Urine Bilirubin Negative (Negative); Urine Character Clear (Clear); Urine Color Yellow; Urine Glucose Negative (Negative); Urine Ketone 1+ (Negative); Urine Leukocyte Negative (Negative); Urine Nitrite Negative (Negative); Urine Occult Blood Negative (Negative); Urine Urobilinogen Negative (Neg - 1+)
--- NOTE | 2024-04-28 17:16 | HPS.HSE ---
Family Physician
-
Family Physician: Elroy Olguin
Chief Complaint
-
weakness
History of Present Illness
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
nephrolithiasis, anxiety/depression, H. pylori, presenting with weakness and depression.
He states that he started developing akathisia and restlessness a few months ago in December. He saw his primary care on March 03 and was recommended to stop mirtazapine and increase frequency of alprazolam.. He had improvement in his symptoms since
stopping mirtazapine although it did intermittently return. Since April 03 he has been feeling more depressed with generalized fatigue, occasional headaches and increase in blurry vision. He saw a new psychiatrist in early March who later
started him on Lexapro on 04/21 for depressive symptoms. He denies any suicidal intention.
He has also been having intermittent loose stools since December but yesterday he developed severe watery diarrhea. He denies any further diarrhea episodes today. He denies any nausea or vomiting or abdominal pain or fevers or chills.
He drinks alcohol occasionally. He denies smoking.
He recently has been having issues with orthostatic hypotension. He came to the emergency room on 04/23 and was noted to be orthostatic and given IV fluids. He states that he has been drinking 36 to 48 ounces of fluids every day which is an
increase compared to previously. He has lost weight recently.
Medical History
Past Medical History
Past Medical History: Reports Other (CAD with stent, paroxysmal atrial fibrillation, hypertension, GERD, gout, rheumatoid arthritis, degenerative disease/spinal stenosis, hemorrhoids, peripheral neuropathy, BPH, nephrolithiasis, anxiety/depression,
H. pylori)
Past Surgical History: Reports Other ( Appendectomy, Cardiac (LAD stent), Orthopedic (Left ankle surgery. Left fibula surgery, Right bicep repair, Right trigger finger, Lumbar laminectomy, ), Tonsilectomy (Adenoids), Urological (Lithotripsy) and
Other ( intussusception x2 as a child, Hemorrhoids, cataracts, Left hernia repair, ))
Social History
Tobacco: Non-smoker
Alcohol: Occasional
Drug: None
Family History
Family History: Not pertinent
Allergies / Home Medications
Allergies reflects when Allergies were last updated in [facility].
Home Medications with original date entered in [facility]
Allergy/Medication List:
Allergies
Allergy/AdvReac Type Severity Reaction Status Date / Time
carvedilol Allergy Unknown Unknown Verified 04/28/24 12:44
meperidine [From Demerol] Allergy Unknown Unknown Verified 04/28/24 12:44
methotrexate Allergy Unknown Unknown Verified 04/28/24 12:44
atorvastatin calcium Allergy myalgias Verified 04/28/24 12:44
[From Lipitor]
lisinopril Allergy COUGH Verified 04/28/24 12:44
meperidine HCl [From Demerol] Allergy Nausea Verified 04/28/24 12:44
piroxicam [From Feldene] Allergy Gastritis Verified 04/28/24 12:44
simvastatin [From Zocor] Allergy myalgias Verified 04/28/24 12:44
MERTAZIPINE AdvReac Unknown Uncoded 04/28/24 12:44
Home Medications
alprazolam 0.5 mg tablet 0.5 mg PO HSPRN PRN INSOMNIA 01/02/20
prednisone 10 mg tablet 5 mg PO HS Anti-inflammatory 03/12/20
acetaminophen 325 mg tablet 650 mg PO Q4HPRN PRN fever 09/06/20
tamsulosin 0.4 mg capsule (Flomax) 0.8 mg PO HS Urinary issue 09/07/20
allopurinol 300 mg tablet 300 mg PO DAILY Gout 01/05/21
calcium carbonate (Antacid (calcium carbonate)) 1 tab PO Q6HPRN PRN upset stomach 01/05/21
candesartan 32 mg-hydrochlorothiazide 12.5 mg tablet 1 tab PO DAILY Blood pressure 01/05/21
famotidine 20 mg tablet 20 mg PO DAILYPRN PRN gerd 01/05/21
nitroglycerin 0.4 mg sublingual tablet 0.4 mg sublingual [id number] PRN chest pain 01/05/21
rosuvastatin 5 mg tablet 5 mg PO HS High cholesterol 01/05/21
apixaban 5 mg tablet (Eliquis) 5 mg PO BID Blood clot prevention/tx ##0 01/30/21
propranolol 60 mg tablet 60 mg PO DAILY Blood Pressure 01/30/21
omeprazole 20 mg tablet,delayed release 20 mg PO DAILY Gastrointestinal Issue 01/08/24
mszyxoopwf-xvdxaiuucxyll-lwiadwit 50 mg-325 mg-40 mg tablet 1 tab PO DAILYPRN PRN headache\\ #0 tabs 01/09/24
cyanocobalamin (vitamin B-12) 1,000 mcg tablet 1,000 mcg PO DAILY #30 tabs 01/09/24
oxycodone 5 mg capsule 5 mg PO Q8H PRN Pain #14 caps 02/21/24
Review of Systems
-
History Source: Patient
A 12 point ROS was completed and negative except as noted: Yes
Constitutional: Reports No Symptoms
EENT: Reports No Symptoms
Respiratory: Reports No Symptoms
Cardiac: Reports No Symptoms
Abdomen/GI: Reports No Symptoms
: Reports No Symptoms
Musculoskeletal: Reports No Symptoms
Skin: Reports No Symptoms
Neurological: Reports No Symptoms
Endocrine: Reports No Symptoms
Hematologic/Lymphatic: Reports No Symptoms
Psych: Reports No Symptoms
Physical Exam
Vital Signs
Vital Signs
Temp Pulse Resp BP Pulse Ox
98.1 F 65 17 161/79 98
04/28/24 12:43 04/28/24 15:05 04/28/24 15:05 04/28/24 13:24 04/28/24 15:05
Physical Exam
General: Well Developed, Well Nourished and No Apparent Distress
HEENT: NormoCephalic, Moist mucous membranes and Atraumatic
Respiratory: Clear
Cardiac: S1/S2 and Regular Rhythm; No Murmur or Rub
GI: Soft, Non Tender, Non Distended and Normal Bowel Sounds; No Organomegaly
Rectal: Deferred by Provider
Musculoskeletal: No Clubbing, No Cyanosis and No Edema
Skin: No Rash
Neuro: Nonfocal/grossly intact
Laboratory Results
-
04/28/24 13:41
04/28/24 13:41
Laboratory Results
PT 14.4 Sec (11.4-14.6) 04/28/24 13:41
INR 1.14 04/28/24 13:41
Total Bilirubin 0.6 mg/dl (0.2-1.3) 04/28/24 13:41
AST 27 U/L (17-59) 04/28/24 13:41
ALT 23 U/L (0-50) 04/28/24 13:41
Alkaline Phosphatase 45 U/L (38-126) 04/28/24 13:41
Troponin I < 0.012 ng/ml 04/28/24 13:41
Data Reviewed
-
Lab Data: Labs Reviewed by me
Old Records: Reviewed
Impression/Plan
-
IMPRESSION:
PLAN:
# Chronic symptomatic hyponatremia likely multifactorial secondary to polydipsia/hydrochlorothiazide/SIADH from Lexapro/recent loose stools/diarrhea
-Sodium of 128 from 137 on 04/13
-Sodium was 127 on 04/22 without improvement with IV fluids
-Check urine sodium, osmolality, TSH
-Hold hydrochlorothiazide
-Continue Lexapro
-Fluid restriction to 40 ounces
-SIADH seems to be predominant factor, consider nephrology for Samsca depending on urine studies
# Depression
-No suicidal intent
-Continue Lexapro
-Continue alprazolam
-Even with correction of hyponatremia think that some of the weakness could be attributed to inadequately treated depression
# Ongoing loose stools, severe diarrhea yesterday
-No diarrhea today
-Check stool culture, C. difficile if recurrent
# Hypertensive urgency
# Recent orthostatic hypotension
-Blood pressure 160s systolic
-Avoid overaggressive treatment of hypertension and avoid IV fluids
CAD with history of stent
-Continue statin
Paroxysmal atrial fibrillation
-Continue Eliquis
Essential hypertension
-Continue candesartan
-Hold hydrochlorothiazide
-Continue propranolol
GERD
-Continue Pepcid, omeprazole
Gout
-Continue allopurinol
Rheumatoid arthritis
-Continue prednisone
Degenerative disc disease/spinal stenosis
History of hemorrhoids
Peripheral neuropathy
BPH
-Continue tamsulosin
History of nephrolithiasis
History of H. pylori
Full code
DVT prophylaxis�Eliquis
Regular diet
[2024-04-28 18:28] VITALS: BP 151/82
--- NOTE | 2024-04-28 20:00 | PTCARENOTE ---
Patient presents from the ED for weakness. He is AAOx3, he walked to the bedside with an assist of one and a cane. Patient assessed, oriented to the unit. Patient verbalized an understanding to ring for transfers and demonstrated how to use call
tsang. Call tsang in reach.
[2024-04-28] MEDS: DELTASONE 5 MG PO (20:22)
[2024-04-28] MEDS: ELIQUIS 5 MG PO (20:22)
[2024-04-28] MEDS: XANAX 0.5 MG PO (20:22)
[2024-04-28] MEDS: FLOMAX 0.8 MG PO (20:22)
[2024-04-28] MEDS: CRESTOR 5 MG PO (20:23)
[2024-04-28 20:59] VITALS: BMI 27.8
[2024-04-28 22:57] LABS: TSH Reflex To Free T4 1.45 uIU/ml (0.47-4.68)
[2024-04-28] MEDS: TYLENOL 650 MG PO (23:40)
[2024-04-28 23:53] VITALS: BP 142/78
[2024-04-29] VITALS (8 sets, daily range): BP systolic 95–159; BP diastolic 54–85; PULSE 52–77; O2SAT 98–99
[2024-04-29 00:47] LABS: Urine Sodium 51 mmol/L (30-90)
[2024-04-29 01:10] LABS: Osmolality Urine 309 mOsm/kg (300-900)
[2024-04-29] MEDS: TYLENOL 650 MG PO (05:49)
[2024-04-29 06:24] LABS: % Basophils 0.2 % (0-2); % Eosinophils 0.3 % (0-6); % Immature Granulocytes 0.3 % (0-0.5); % Lymphocytes 19.1 % (20.5-51.1); % Monocytes 11.8 % (1.7-9.3); % Neutrophils 68.3 % (42.2-75.2); Absolute Lymphocytes 1.1 10^3/uL (1.2-3.4); Absolute Monocytes 0.7 10^3/uL (0.1-0.6); Absolute Neutrophils 3.9 10^3/uL (1.4-6.5); Hematocrit 36.6 % (39.0-52.0); Hemoglobin 12.8 g/dL (13.0-18.0); Mean Corpuscular Hgb 30.6 pg (27.0-31.0); Mean Corpuscular Volume 87.6 fL (80.0-94.0); Mean Platelet Volume 11.6 fL (7.4-10.4); Nucleated Red Blood Cells % 0 % (-); Platelet Count 139 10^3/uL (130-400); Red Blood Cell Count 4.18 10^6/uL (4.70-6.10); White Blood Cell Count 5.8 10^3/uL (4.8-10.8)
[2024-04-29 06:28] LABS: ALT (SGPT) 21 U/L (0-50); AST (SGOT) 25 U/L (17-59); Albumin 3.2 g/dl (3.5-5.0); Alkaline Phosphatase 36 U/L (38-126); Blood Urea Nitrogen 14 mg/dl (9-20); Carbon Dioxide 25 mmol/L (22-30); Chloride 95 mmol/L (98-107); Estimated Creatinine Clearance 80 ml/min; Glucose 109 mg/dl (70-99); Potassium 3.6 mmol/L (3.5-5.1); Sodium 128 mmol/L (135-145); Total Bilirubin 0.4 mg/dl (0.2-1.3); Total Protein 5.3 g/dl (6.3-8.2); eGFR > 60.00
--- NOTE | 2024-04-29 08:46 | W.PN.HOSP.TC ---
Today's Communication/Plan
-
3% as per nephro
PT/OT
cont fluid restriction
monitor Na
Tylenol 1000 mg Q6Hprn Headache
Assessment / Plan
Assessment / Plan
Physical Exam
General: Well Developed, Well Nourished and No Apparent Distress
HEENT: NormoCephalic, Moist mucous membranes and Atraumatic
Respiratory: Clear
Cardiac: S1/S2 and Regular Rhythm; No Murmur or Rub
GI: Soft, Non Tender, Non Distended and Normal Bowel Sounds; No Organomegaly
Rectal: Deferred by Provider
Musculoskeletal: No Clubbing, No Cyanosis and No Edema
Skin: No Rash
Neuro: Nonfocal/grossly intact
83M retired [employer] hx afib htn CAD neuropathy chronic Headache Hemorrhoids Gout Rheumatoid arthritis spinal stenosis depression present for evaluation weakness admitted for treatment possible symptomatic hyponatremia.
# Chronic symptomatic hyponatremia likely multifactorial secondary to polydipsia/hydrochlorothiazide/SIADH from Lexapro/recent loose stools/diarrhea
-No improvement Na noted despite fluid restriction
-TSH WNL
-Hold hydrochlorothiazide
-Continue Lexapro for now (potentially may need to discontinue if Na does not improve)
-Fluid restriction to 40 ounces
-Nephro eval appreciated
-04/29 3% NS as per nephro
# Depression
-reports depression relatively well controlled at this time.
-No suicidal intent
-Continue Lexapro
-Continue alprazolam prn
-possible reported weakness may be related to depression
-PT/OT eval appreciated
#Chronic Headache
prn Tylenol 1000 mg Q6Hprn
last Neurology evaluation progress note appreciated in December, patient recommended to wean of Fioricet, ok to receive one dose per week
# Ongoing loose stools, severe diarrhea yesterday
-No bowel movement since admission, monitor for now, consider laxatives if constipation persists
-Check stool culture, C. difficile if recurrent
# HTN
# Recent orthostatic hypotension
-monitor orthostatic vitals
-cont home candesartan propranalol
-HCTZ on hold d/t hyponatremia as above
CAD with history of stent
-Continue statin
Paroxysmal atrial fibrillation
-Continue Eliquis
GERD
-Continue Pepcid, omeprazole
Gout
-Continue allopurinol
Rheumatoid arthritis
-Continue prednisone
Degenerative disc disease/spinal stenosis
History of hemorrhoids
Peripheral neuropathy
BPH
-Continue tamsulosin
History of nephrolithiasis
History of H. pylori
Full code
DVT prophylaxis�Eliquis
Regular diet
I spent a total of 50 minutes with the patient or on the floor. More than 50% of this time involved counseling and coordination of care.
Anticipated Discharge: 24 - 48 hours
Subjective/Interval History
-
Date of Service: April 29, 2024
Sitting up comfortably side of bed. Reports headache but otherwise in no acute distress.
Objective Data
-
Labs:
Laboratory Results
04/29/24
05:20
WBC 5.8
Hgb 12.8 L
Hct 36.6 L
Plt Count 139
Sodium 128 L
Potassium 3.6
Chloride 95 L
Carbon Dioxide 25
BUN 14
Creatinine 0.7
Glucose 109 H
Calcium 9.0
Total Bilirubin 0.4
AST 25
ALT 21
Alkaline Phosphatase 36 L
Vital Signs:
Vital Signs
Temp Pulse Resp BP Pulse Ox
97.9 F 66 16 150/77 95
04/29/24 07:20 04/29/24 07:20 04/29/24 07:20 04/29/24 07:20 04/29/24 07:20
I&O
04/28/24 04/29/24 04/30/24
06:59 06:59 06:59
Intake Total 240 / 240
Balance 240 / 240
[2024-04-29] MEDS: ELIQUIS 5 MG PO ×2 (08:56→21:25)
[2024-04-29] MEDS: PROTONIX 40 MG PO (08:56)
[2024-04-29] MEDS: ATACAND 32 MG PO (08:57)
[2024-04-29] MEDS: INDERAL LA 60 MG PO (08:57)
[2024-04-29] MEDS: ZYLOPRIM 300 MG PO (08:58)
[2024-04-29] MEDS: LEXAPRO 5 MG PO (08:58)
--- NOTE | 2024-04-29 11:47 | CM ---
Met with pt at bedside
Pt reports he lives alone at [facility]; elevator access
Reports independent at baseline with ADL's, ambulates with cane, has motor scooter - does own shopping/cleaning - recently needing assistance
DME - single point cane, rolling walker, motorized scooter
SNF - [facility] in past
HH - denies past hx
Has ride at discharge
PCP - Elroy Olguin
Pharm - [facility]
PT/OT pending
Plan - anticipate home with HH when medically stable
--- NOTE | 2024-04-29 12:06 | W.CON.NEPH ---
Consultation
-
Date/Time Consultation Requested: 04/29/24 0812
Date/Time Consultation Performed: 04/29/24 1215
Requesting Provider: Camila Hoff
Performing Provider: Angella Handley
Reason for Consultation: Hyponatremia
Medical History
-
Chief Complaint: Weakness
History of Present Illness:
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
degenerative disease/spinal stenosis, hemorrhoids, peripheral neuropathy, BPH on Flomax, nephrolithiasis, anxiety/depression, H. pylori, presenting with weakness and depression on 04/28.
He states that he started developing akathisia and restlessness a few months ago in December. He saw his primary care on March 03 and was recommended to stop mirtazapine and increase frequency of alprazolam.. He had improvement in his symptoms since
stopping mirtazapine although it did intermittently return. Since April 03 he has been feeling more depressed with generalized fatigue, occasional headaches and increase in blurry vision. He saw a new psychiatrist in early March who later
started him on Lexapro on 04/21 for depressive symptoms.
He has also been having intermittent loose stools since December but day prior admit he developed severe watery diarrhea. He denies any further diarrhea episodes today. He denies any nausea or vomiting or abdominal pain or fevers or chills. Chr back
pain is seem controlled. Also has BOO lately and was using Fiorocet which stopped taking since onset of Akathisia. He still continues BOO intermittently. Denies migraines.
He recently has been having issues with orthostatic hypotension. He came to the emergency room on 04/23 and was noted to be orthostatic and given IV fluids. He states that he has been drinking 48-64 ounces of fluids every day which is an increase
compared to previously. He has lost weight recently. He also had sodium level of 127 on 04/23. Since admit his sodium no change at 128 despite FR. hence nephrology asked to evaluates. His orthostatic vitals still positive but no significant
symptoms per pt. He c/o urinary hesitance from BPH. He denies any cp or sob. Has come LE edema lately currentl ybetter more on right than left.
Past Medical History
CAD with stent, paroxysmal atrial fibrillation, hypertension, GERD, gout, rheumatoid arthritis, degenerative disease/spinal stenosis, hemorrhoids, peripheral neuropathy, BPH, nephrolithiasis, anxiety/depression, H. pylori
Past Surgical History: Appendectomy, Cardiac (LAD stent), Orthopedic (Left ankle surgery. Left fibula surgery, Right bicep repair, Right trigger finger, Lumbar laminectomy,), Tonsilectomy (adenoids), Urological (lithotripsy) and Other
(intussusception x2 as a child, Hemorrhoids, cataracts, Left hernia repair,)
Social History
Tobacco: Non-Smoker
Alcohol: Occasional
Drug: None
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
Family History
Family History: Not Pertinent
Allergies / Home Medications
Allergy/AdvReac Type Severity Reaction Status Date / Time
carvedilol Allergy Unknown Unknown Verified 04/28/24 12:44
meperidine [From Demerol] Allergy Unknown Unknown Verified 04/28/24 12:44
methotrexate Allergy Unknown Unknown Verified 04/28/24 12:44
atorvastatin calcium Allergy myalgias Verified 04/28/24 12:44
[From Lipitor]
lisinopril Allergy COUGH Verified 04/28/24 12:44
meperidine HCl [From Demerol] Allergy Nausea Verified 04/28/24 12:44
piroxicam [From Feldene] Allergy Gastritis Verified 04/28/24 12:44
simvastatin [From Zocor] Allergy myalgias Verified 04/28/24 12:44
MERTAZIPINE AdvReac Unknown Uncoded 04/28/24 12:44
�Medication �Instructions �Recorded �Confirmed �Type
alprazolam 0.5 mg tablet 0.5 mg PO HSPRN PRN INSOMNIA 01/02/20 01/08/24 Rx
prednisone 10 mg tablet 5 mg PO HS Anti-inflammatory 03/12/20 01/08/24 History
acetaminophen 325 mg tablet 650 mg PO Q4HPRN PRN fever 09/06/20 01/08/24 History
tamsulosin 0.4 mg capsule (Flomax) 0.8 mg PO HS Urinary issue 09/07/20 01/08/24 History
allopurinol 300 mg tablet 300 mg PO DAILY Gout 01/05/21 01/08/24 History
calcium carbonate (Antacid 1 tab PO Q6HPRN PRN upset stomach 01/05/21 01/08/24 History
(calcium carbonate))
candesartan 32 1 tab PO DAILY Blood pressure 01/05/21 01/08/24 History
mg-hydrochlorothiazide 12.5 mg
tablet
famotidine 20 mg tablet 20 mg PO DAILYPRN PRN gerd 01/05/21 01/08/24 History
nitroglycerin 0.4 mg sublingual 0.4 mg sublingual [id number] PRN 01/05/21 01/08/24 History
tablet chest pain
rosuvastatin 5 mg tablet 5 mg PO HS High cholesterol 01/05/21 01/08/24 History
apixaban 5 mg tablet (Eliquis) 5 mg PO BID Blood clot 01/30/21 01/08/24 Rx
prevention/tx ##0
propranolol 60 mg tablet 60 mg PO DAILY Blood Pressure 01/30/21 01/08/24 History
omeprazole 20 mg tablet,delayed 20 mg PO DAILY Gastrointestinal 01/08/24 01/08/24 History
release Issue
oxycodone 5 mg capsule 5 mg PO Q8H PRN Pain #14 caps 02/21/24 Rx
qzavmtsbjr-lroynaibuovzt-upzgpqxh 1 tab PO DAILYPRN PRN headache 04/29/24 History
50 mg-325 mg-40 mg tablet
cyanocobalamin (vitamin B-12) 1,000 mcg PO DAILY Supplement 10/06/24 History
1,000 mcg tablet
Review of Systems
-
All complete 12 point ROS have been inquired and found negative other than stated in HPI
All other systems: Negative unless noted
Physical Exam
Vital Signs
Vital Signs
Temp Pulse Resp BP Pulse Ox
98.1 F 69 16 135/75 96
04/29/24 11:20 04/29/24 11:20 04/29/24 11:20 04/29/24 11:20 04/29/24 11:20
Lab Results
WBC 5.8 10^3/uL (4.8-10.8) 04/29/24 05:20
RBC 4.18 10^6/uL (4.70-6.10) L 04/29/24 05:20
Hgb 12.8 g/dL (13.0-18.0) L 04/29/24 05:20
Hct 36.6 % (39.0-52.0) L 04/29/24 05:20
Plt Count 139 10^3/uL (130-400) 04/29/24 05:20
Sodium 128 mmol/L (135-145) L 04/29/24 05:20
Potassium 3.6 mmol/L (3.5-5.1) 04/29/24 05:20
Chloride 95 mmol/L (98-107) L 04/29/24 05:20
Carbon Dioxide 25 mmol/L (22-30) 04/29/24 05:20
BUN 14 mg/dl (9-20) 04/29/24 05:20
Creatinine 0.7 mg/dL (0.7-1.3) 04/29/24 05:20
eGFR > 60.00 04/29/24 05:20
Glucose 109 mg/dl (70-99) H 04/29/24 05:20
Calcium 9.0 mg/dl (8.4-10.2) 04/29/24 05:20
Albumin 3.2 g/dl (3.5-5.0) L 04/29/24 05:20
Abnormal Lab Results
04/28/24 04/28/24 04/29/24
13:41 17:02 05:20
RBC 4.39 L 4.18 L
Hgb 12.8 L
Hct 38.0 L 36.6 L
MCH 31.2 H
MPV 11.2 H 11.6 H
Abs Immat Gran (auto) 0.1 H
Absolute Lymphs (auto) 1.1 L
Absolute Monos (auto) 0.8 H 0.7 H
Immature Gran % 0.8 H
Lymphocytes % 19.1 L
Monocytes % 13.7 H 11.8 H
Sodium 128 L 128 L
Chloride 93 L 95 L
Glucose 107 H 109 H
Alkaline Phosphatase 36 L
Total Protein 6.2 L 5.3 L
Albumin 3.2 L
Urine Ketones 1+ A
Physical Exam
General: Awake, Alert, Oriented, AOx3, No Distress and Nontoxic
HEENT: EOMI, Anicteric, Conjunctivae Clear, Facial Symmetry and Neck Supple
Respiratory: Clear, Normal Excursion and Nonlabored Respirations
Cardiac: S1/S2 and Regular Rate/Rhythm
Breast: Deferred by me
Abdomen: Soft, Nontender and Nondistended
Musculoskeletal: No Cyanosis and Edema (trace more on right than left)
Skin: No Rash
Neuro: Nonfocal/Grossly Intact
Psych: Insight/judgement good and Appropriate
Data Reviewed
-
Labs: Labs Reviewed by me, Discussed with Nurse and Discussed with Patient
Assessment/Plan
-
IMP:
Hyponatremia
Orthostatic hypotension
Depression
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
Hypertensive urgency
Recent orthostatic hypotension
CAD with history of stent
Paroxysmal atrial fibrillation
Essential hypertension
GERD
Gout
Rheumatoid arthritis
Degenerative disc disease/spinal stenosis
History of hemorrhoids
Peripheral neuropathy
BPH
History of nephrolithiasis
History of H. pylori
compression fracture involving T12 on CT 03/2024
PLan:
A/w gen weakness, recent ER visits
Hyponatremia-relatively new onset in late Sep, last normal sodium on 04/13
Seem to be multifactorial-hydrochlorothiazide, Lexapro, diarrhea and high free water intake
ADH mediated predominantly since osmo high at 309 and sodium 51-pain and SSRI
I am not sure hyponatremia is cause of his admitting symp
given orthostatic vitals-would give 3% saline
suspect SSRI need to be changed if hyponatremia does not stabilize
TSH is normal, encourage solute intake and maintain FR 40ounces/day
permissive HTN in view of orthostatic
d/w pt in detail
d/w nursing
[2024-04-29] MEDS: SODIUM CHLORIDE 3% 250 IV (15:32)
[2024-04-29] MEDS: XANAX 0.25 MG PO (16:02)
[2024-04-29] MEDS: TYLENOL 1000 MG PO (17:17)
[2024-04-29] MEDS: DELTASONE 5 MG PO (21:25)
[2024-04-29] MEDS: FLOMAX 0.8 MG PO (21:25)
[2024-04-29] MEDS: CRESTOR 5 MG PO (21:25)
[2024-04-29] MEDS: XANAX 0.5 MG PO (23:11)
[2024-04-30] VITALS (8 sets, daily range): BP systolic 108–133; BP diastolic 56–78; PULSE 54–62; O2SAT 97
[2024-04-30] MEDS: TYLENOL 1000 MG PO ×3 (00:05→22:22)
[2024-04-30 06:23] LABS: Hematocrit 37.2 % (39.0-52.0); Hemoglobin 12.8 g/dL (13.0-18.0); Mean Corp Hgb Conc. 34.4 g/dL (33.0-37.0); Mean Corpuscular Hgb 30.5 pg (27.0-31.0); Mean Corpuscular Volume 88.8 fL (80.0-94.0); Mean Platelet Volume 11.7 fL (7.4-10.4); Platelet Count 141 10^3/uL (130-400); Red Blood Cell Count 4.19 10^6/uL (4.70-6.10); Red Cell Dist. Width 14.2 % (11.5-14.5); White Blood Cell Count 6.6 10^3/uL (4.8-10.8)
[2024-04-30 06:39] LABS: NT-proBNP 678 pg/ml
[2024-04-30 06:53] LABS: Blood Urea Nitrogen 18 mg/dl (9-20); Calcium 8.8 mg/dl (8.4-10.2); Carbon Dioxide 25 mmol/L (22-30); Chloride 98 mmol/L (98-107); Estimated Creatinine Clearance 70 ml/min; Glucose 122 mg/dl (70-99); Magnesium 1.5 mg/dl (1.6-2.3); Phosphorus 3.4 mg/dl (2.5-4.5); Potassium 4.2 mmol/L (3.5-5.1); Sodium 134 mmol/L (135-145); eGFR > 60.00
[2024-04-30] MEDS: LEXAPRO 5 MG PO (09:09)
[2024-04-30] MEDS: ATACAND 32 MG PO (09:09)
[2024-04-30] MEDS: ZYLOPRIM 300 MG PO (09:10)
[2024-04-30] MEDS: MAGNESIUM SULFATE 50 IV (09:10)
[2024-04-30] MEDS: PROTONIX 40 MG PO (09:11)
[2024-04-30] MEDS: ELIQUIS 5 MG PO ×2 (09:13→21:00)
[2024-04-30] MEDS: INDERAL LA PO (09:15)
[2024-04-30] MEDS: XANAX 0.25 MG PO ×2 (09:32→17:10)
--- NOTE | 2024-04-30 11:22 | W.PN.NEPH.PH ---
Today's Communication / Plan
-
follow BMP
Assessment/Plan
-
IMP:
Hyponatremia
Orthostatic hypotension
Depression
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
Hypertensive urgency
Recent orthostatic hypotension
CAD with history of stent
Paroxysmal atrial fibrillation
Essential hypertension
GERD
Gout
Rheumatoid arthritis
Degenerative disc disease/spinal stenosis
History of hemorrhoids
Peripheral neuropathy
BPH
History of nephrolithiasis
History of H. pylori
compression fracture involving T12 on CT 03/2024
PLan:
follow BMP
FR continues
no HCTZ
ok for SSRI still for now
-
-
Date of Service: April 30, 2024
CC / HPI / ROS
-
Chief Complaint:
hyponatremia
History of Present Illness:
Na up to 134 with 3%
BP stable
eating well
Review of Systems:
no CP/SOB
Labs
-
Labs:
WBC 6.6 10^3/uL (4.8-10.8) 04/30/24 05:21
RBC 4.19 10^6/uL (4.70-6.10) L 04/30/24 05:21
Hgb 12.8 g/dL (13.0-18.0) L 04/30/24 05:21
Hct 37.2 % (39.0-52.0) L 04/30/24 05:21
Plt Count 141 10^3/uL (130-400) 04/30/24 05:21
Sodium 134 mmol/L (135-145) L 04/30/24 05:21
Potassium 4.2 mmol/L (3.5-5.1) 04/30/24 05:21
Chloride 98 mmol/L (98-107) 04/30/24 05:21
Carbon Dioxide 25 mmol/L (22-30) 04/30/24 05:21
BUN 18 mg/dl (9-20) 04/30/24 05:21
Creatinine 0.8 mg/dL (0.7-1.3) 04/30/24 05:21
eGFR > 60.00 04/30/24 05:21
Glucose 122 mg/dl (70-99) H 04/30/24 05:21
Calcium 8.8 mg/dl (8.4-10.2) 04/30/24 05:21
Phosphorus 3.4 mg/dl (2.5-4.5) 04/30/24 05:21
Fvg-X-Fagaetbyqbr Pept 678 pg/ml 04/30/24 05:21
Albumin 3.2 g/dl (3.5-5.0) L 04/29/24 05:20
Physical Exam
-
Vital Signs:
Vital Signs
Temp Pulse Resp BP Pulse Ox
98.2 F 68 16 128/59 98
04/30/24 07:20 04/30/24 09:09 04/30/24 07:20 04/30/24 09:09 04/30/24 07:20
Cardiovascular:: Regular rate and rhythm
Respiratory:: Bilateral: CTA
Lung Excursion:: Normal
Abdomen:: Nontender and Soft
Bowel Sounds:: Normal
Extremity Edema:: None: Bilateral:
--- NOTE | 2024-04-30 11:37 | W.PN.HOSP.TC ---
Today's Communication/Plan
-
Trend BMP
Continue with fluid restriction
Replete mag
Assessment / Plan
Assessment / Plan
Physical Exam
General: Well Developed, Well Nourished and No Apparent Distress
HEENT: NormoCephalic, Moist mucous membranes and Atraumatic
Respiratory: Clear
Cardiac: S1/S2 and Regular Rhythm; No Murmur or Rub
GI: Soft, Non Tender, Non Distended and Normal Bowel Sounds; No Organomegaly
Rectal: Deferred by Provider
Musculoskeletal: No Clubbing, No Cyanosis and No Edema
Skin: No Rash
Neuro: Nonfocal/grossly intact
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
# Chronic symptomatic hyponatremia likely multifactorial secondary to polydipsia/hydrochlorothiazide/SIADH from Lexapro/recent loose stools/diarrhea
-TSH WNL
-Hold hydrochlorothiazide
-Continue Lexapro for now (potentially may need to discontinue if Na does not improve)
-Fluid restriction to 40 ounces
-Nephro eval appreciated
-04/29 3% NS as per nephro
-Sodium improved to 134. Follow BMP.
# Depression
-reports depression relatively well controlled at this time.
-Continue Lexapro
-Continue alprazolam prn
-possible reported weakness may be related to depression
-PT/OT eval appreciated
#Chronic Headache
prn Tylenol 1000 mg Q6Hprn
last Neurology evaluation progress note appreciated in December, patient recommended to wean of Fioricet, ok to receive one dose per week
# Ongoing loose stools, severe diarrhea yesterday
-No bowel movement since admission, monitor for now, consider laxatives if constipation persists
-Check stool culture, C. difficile if recurrent
# HTN primary with bradycardia
# Recent orthostatic hypotension
-monitor orthostatic vitals
-cont home candesartan propranalol
-HCTZ on hold d/t hyponatremia as above
Hypomagnesemia�replete and monitor
CAD with history of stent
-Continue statin
Paroxysmal atrial fibrillation with bradycardia.
-Continue Eliquis
-States baseline heart rate of 58-62. Propranolol with hold parameters.
-Telemetry reviewed with no sinus pauses.
GERD
-Continue Pepcid, omeprazole
Gout
-Continue allopurinol
Rheumatoid arthritis
-Continue prednisone
Degenerative disc disease/spinal stenosis
History of hemorrhoids
Peripheral neuropathy
BPH
-Continue tamsulosin
Full code
DVT prophylaxis�Eliquis
Anticipated Discharge: > 48 hours
Subjective/Interval History
-
Date of Service: April 30, 2024
States he slept significantly better last night
States starting to feel a lot better
Objective Data
-
Labs:
Laboratory Results
04/30/24
05:21
WBC 6.6
Hgb 12.8 L
Hct 37.2 L
Plt Count 141
Sodium 134 L
Potassium 4.2
Chloride 98
Carbon Dioxide 25
BUN 18
Creatinine 0.8
Glucose 122 H
Calcium 8.8
Vital Signs:
Vital Signs
Temp Pulse Resp BP Pulse Ox
98.2 F 68 16 128/59 98
04/30/24 07:20 04/30/24 09:09 04/30/24 07:20 04/30/24 09:09 04/30/24 07:20
I&O
04/29/24 04/30/24 05/01/24
06:59 06:59 06:59
Intake Total 240 / 240 1420 / 1420
Output Total 425 / 425
Balance 240 / 240 995 / 995
Data Reviewed
-
Total Time Spent with Patient (in minutes): 52
--- NOTE | 2024-04-30 11:47 | CM ---
Addendum entered by Love Whitfield 04/30/24 12:15:
Received tt from Susy Grayson in [facility] inpatient status on 04/29
IMM explained & signed. In chart
Original Note:
Met with patient.
Lives at [facility] [place]
PT recommending outpt therapy
Patient states they have therapy at [facility]
Spoke with Tiffanie in the rehab dept who states fax script to her at [phone].
tt [address] Pepe
PLAN: Discharge when medically stable to home with outpatient PT
[2024-04-30] MEDS: CRESTOR 5 MG PO (22:22)
[2024-04-30] MEDS: FLOMAX 0.8 MG PO (22:22)
[2024-04-30] MEDS: XANAX 0.5 MG PO (22:23)
[2024-04-30] MEDS: DELTASONE 5 MG PO (22:23)
--- NOTE | 2024-04-30 23:00 | PTCARENOTE ---
Rec'd pt at change of shift on TELE monitor in sinus bradycardia with VSS. Pt complained of anxiety and headache. Pt given Tylenol and Xanax per order (see MAR). Pt denied any pain or weakness. Pt ambulated to bathroom and back to bed with
minimal assistance. Pt verbalized understanding of strict intake and output recording with urinal at bedside. Pt resting with call tsang in reach.
[2024-05-01 02:49] VITALS: BP 119/48
[2024-05-01 06:32] LABS: Hematocrit 38.4 % (39.0-52.0); Hemoglobin 13.1 g/dL (13.0-18.0); Mean Corp Hgb Conc. 34.1 g/dL (33.0-37.0); Mean Corpuscular Hgb 30.8 pg (27.0-31.0); Mean Corpuscular Volume 90.1 fL (80.0-94.0); Mean Platelet Volume 11.5 fL (7.4-10.4); Platelet Count 151 10^3/uL (130-400); Red Blood Cell Count 4.26 10^6/uL (4.70-6.10); Red Cell Dist. Width 14.3 % (11.5-14.5); White Blood Cell Count 6.9 10^3/uL (4.8-10.8)
[2024-05-01 07:05] LABS: Blood Urea Nitrogen 21 mg/dl (9-20); Carbon Dioxide 23 mmol/L (22-30); Chloride 100 mmol/L (98-107); Estimated Creatinine Clearance 70 ml/min; Glucose 122 mg/dl (70-99); Magnesium 1.8 mg/dl (1.6-2.3); Phosphorus 3.1 mg/dl (2.5-4.5); Sodium 134 mmol/L (135-145); eGFR > 60.00
[2024-05-01 07:10] LABS: Potassium 4.2 mmol/L (3.5-5.1)
[2024-05-01 07:20] VITALS: BP 144/84
[2024-05-01] MEDS: ATACAND 32 MG PO (08:42)
[2024-05-01] MEDS: ELIQUIS 5 MG PO ×2 (08:43→21:30)
[2024-05-01] MEDS: LEXAPRO 5 MG PO (08:43)
[2024-05-01] MEDS: INDERAL LA 60 MG PO (08:44)
[2024-05-01] MEDS: ZYLOPRIM 300 MG PO (08:44)
[2024-05-01] MEDS: PROTONIX 40 MG PO (08:44)
[2024-05-01] MEDS: XANAX 0.25 MG PO ×2 (09:04→15:21)
--- NOTE | 2024-05-01 10:51 | W.PN.HOSP.TC ---
Today's Communication/Plan
-
nephro recs
DC HCTZ
repeat BMP as OP
CM for dispo planning
Assessment / Plan
Assessment / Plan
Physical Exam
General: Well Developed, Well Nourished and No Apparent Distress
HEENT: NormoCephalic, Moist mucous membranes and Atraumatic
Respiratory: Clear
Cardiac: S1/S2 and Regular Rhythm; No Murmur or Rub
GI: Soft, Non Tender, Non Distended and Normal Bowel Sounds; No Organomegaly
Rectal: Deferred by Provider
Musculoskeletal: No Clubbing, No Cyanosis and No Edema
Skin: No Rash
Neuro: Nonfocal/grossly intact
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
# Chronic symptomatic hyponatremia likely multifactorial secondary to polydipsia/hydrochlorothiazide/SIADH from Lexapro/recent loose stools/diarrhea
-TSH WNL
-DC hydrochlorothiazide
-Continue Lexapro for now (potentially may need to discontinue if Na does not improve)
-Fluid restriction to 40 ounces
-Nephro eval appreciated
-04/29 3% NS as per nephro
-Sodium improved to 134. Follow BMP.
# Depression
-reports depression relatively well controlled at this time.
-Continue Lexapro
-Continue alprazolam 0.25mg BID and 0.5qhs.
-possible reported weakness may be related to depression
-PT/OT eval appreciated-OP therapy.
#Chronic Headache
prn Tylenol 1000 mg Q6Hprn
last Neurology evaluation progress note appreciated in December, patient recommended to wean of Fioricet, ok to receive one dose per week
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
-had bm x1.
-Check stool culture, C. difficile if recurrent
# HTN primary with bradycardia
# Recent orthostatic hypotension
-monitor orthostatic vitals
-cont home candesartan propranalol
-HCTZ on hold d/t hyponatremia as above
Hypomagnesemia�replete and monitor. Mag 1.8
CAD with history of stent
-Continue statin
Paroxysmal atrial fibrillation with bradycardia.
-Continue Eliquis
-States baseline heart rate of 58-62. Propranolol with hold parameters.
-Telemetry reviewed with no sinus pauses.
GERD
-Continue Pepcid, omeprazole
Gout
-Continue allopurinol
Rheumatoid arthritis
-Continue prednisone
Degenerative disc disease/spinal stenosis
History of hemorrhoids
Peripheral neuropathy
BPH
-Continue tamsulosin
Full code
DVT prophylaxis�Eliquis'
PT/OT-Outpatient therapy. CM to d/w if pt needs more help. Start dispo process.
Anticipated Discharge: Today
Subjective/Interval History
-
Date of Service: May 01, 2024
had bm yesterday
feeling better since admission
Objective Data
-
Labs:
Laboratory Results
05/01/24
05:35
WBC 6.9
Hgb 13.1
Hct 38.4 L
Plt Count 151
Sodium 134 L
Potassium 4.2
Chloride 100
Carbon Dioxide 23
BUN 21 H
Creatinine 0.8
Glucose 122 H
Calcium 9.0
Vital Signs:
Vital Signs
Temp Pulse Resp BP Pulse Ox
98.2 F 68 16 144/84 97
05/01/24 07:20 05/01/24 08:42 05/01/24 07:20 05/01/24 08:42 05/01/24 10:25
I&O
10/07/24 10/08/24 10/09/24
06:59 06:59 06:59
Intake Total 1420 / 1420 1050 / 1050
Output Total 425 / 425 600 / 600
Balance 995 / 995 450 / 450
--- NOTE | 2024-05-01 11:38 | W.PN.NEPH.PH ---
Today's Communication / Plan
-
follow BMP
Assessment/Plan
-
IMP:
Hyponatremia
Orthostatic hypotension
Depression
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
Hypertensive urgency
Recent orthostatic hypotension
CAD with history of stent
Paroxysmal atrial fibrillation
Essential hypertension
GERD
Gout
Rheumatoid arthritis
Degenerative disc disease/spinal stenosis
History of hemorrhoids
Peripheral neuropathy
BPH
History of nephrolithiasis
History of H. pylori
compression fracture involving T12 on CT 03/2024
Plan:
follow BMP
FR continues 40-48oz
no HCTZ
ok for SSRI still for now
-
-
Date of Service: May 01, 2024
CC / HPI / ROS
-
Chief Complaint:
hyponatremia
History of Present Illness:
Na up to 134 with 3%
BP stable
eating well
Review of Systems:
no CP/SOB
Labs
-
Labs:
WBC 6.9 10^3/uL (4.8-10.8) 05/01/24 05:35
RBC 4.26 10^6/uL (4.70-6.10) L 05/01/24 05:35
Hgb 13.1 g/dL (13.0-18.0) 05/01/24 05:35
Hct 38.4 % (39.0-52.0) L 05/01/24 05:35
Plt Count 151 10^3/uL (130-400) 05/01/24 05:35
Sodium 134 mmol/L (135-145) L 05/01/24 05:35
Potassium 4.2 mmol/L (3.5-5.1) 05/01/24 05:35
Chloride 100 mmol/L (98-107) 05/01/24 05:35
Carbon Dioxide 23 mmol/L (22-30) 05/01/24 05:35
BUN 21 mg/dl (9-20) H 05/01/24 05:35
Creatinine 0.8 mg/dL (0.7-1.3) 05/01/24 05:35
eGFR > 60.00 05/01/24 05:35
Glucose 122 mg/dl (70-99) H 05/01/24 05:35
Calcium 9.0 mg/dl (8.4-10.2) 05/01/24 05:35
Phosphorus 3.1 mg/dl (2.5-4.5) 05/01/24 05:35
Muv-E-Midxofneumh Pept 678 pg/ml 04/30/24 05:21
Albumin 3.2 g/dl (3.5-5.0) L 04/29/24 05:20
Physical Exam
-
Vital Signs:
Vital Signs
Temp Pulse Resp BP Pulse Ox
98.2 F 68 16 144/84 97
05/01/24 07:20 05/01/24 08:42 05/01/24 07:20 05/01/24 08:42 05/01/24 10:25
[2024-05-01 12:28] VITALS: BP 114/58; BP 140/72; BP 141/66; PULSE 53; PULSE 55; PULSE 57
[2024-05-01 15:20] VITALS: BP 140/63
[2024-05-01] MEDS: TYLENOL 1000 MG PO (15:21)
--- NOTE | 2024-05-01 15:22 | CM ---
Met with patient at bedside.
Resides in [facility]
tt Dr. Boyle regarding discharge planning
Case management consult for [facility]. Discussed options with patient - prefer [facility]. Notified liaison
Called Niru from [facility]-discussed private pay aids at [facility] - pricing given to patient.
Niru also stated that they provide transportation if needed at [facility]. Patient made aware of service.
Niru will also speak with the patient about [place] at [facility].
[facility] pamphlet also given to patient as a resource.
PLAN: Discharge when stable, home with visiting nurse
Brother to transport
[2024-05-01 19:22] VITALS: BP 135/64
[2024-05-01] MEDS: CRESTOR 5 MG PO (21:30)
[2024-05-01] MEDS: DELTASONE 5 MG PO (21:30)
[2024-05-01] MEDS: FLOMAX 0.8 MG PO (21:30)
[2024-05-01] MEDS: XANAX 0.5 MG PO (21:34)
[2024-05-01 23:11] VITALS: BP 135/64
[2024-05-02 00:49] VITALS: BMI 26.6
[2024-05-02 03:21] VITALS: BP 129/79
[2024-05-02 07:45] VITALS: BP 153/68
[2024-05-02] MEDS: ATACAND 32 MG PO (08:14)
[2024-05-02] MEDS: XANAX 0.25 MG PO (08:15)
[2024-05-02] MEDS: LEXAPRO 5 MG PO (08:15)
[2024-05-02] MEDS: PROTONIX 40 MG PO (08:15)
[2024-05-02] MEDS: ELIQUIS 5 MG PO (08:15)
[2024-05-02] MEDS: ZYLOPRIM 300 MG PO (08:15)
[2024-05-02] MEDS: TYLENOL 1000 MG PO (08:19)
[2024-05-02 09:16] LABS: Blood Urea Nitrogen 17 mg/dl (9-20); Calcium 9.1 mg/dl (8.4-10.2); Carbon Dioxide 24 mmol/L (22-30); Chloride 101 mmol/L (98-107); Estimated Creatinine Clearance 70 ml/min; Glucose 108 mg/dl (70-99); Magnesium 1.8 mg/dl (1.6-2.3); Potassium 4.3 mmol/L (3.5-5.1); Sodium 137 mmol/L (135-145); eGFR > 60.00
--- NOTE | 2024-05-02 10:53 | VNURNOTE ---
Home Health Liaison met with patient to discuss [facility] nurse/therapy, visits, schedule and homebound status. Patient is agreeable and understands that visits at home will be 2-3 x per week to assess and teach medical management.
[facility] brochure provided with contact information. Patient is aware that [facility] will contact them for start of care in 1-2 days after discharge from .
[facility] referral completed in [facility].
--- NOTE | 2024-05-02 10:54 | W.PN.HOSP.TC ---
Today's Communication/Plan
-
dc home
dc HCTZ/Propanolol
Assessment / Plan
Assessment / Plan
Physical Exam
General: Well Developed, Well Nourished and No Apparent Distress
HEENT: NormoCephalic, Moist mucous membranes and Atraumatic
Respiratory: Clear
Cardiac: S1/S2 and Regular Rhythm; No Murmur or Rub
GI: Soft, Non Tender, Non Distended and Normal Bowel Sounds; No Organomegaly
Rectal: Deferred by Provider
Musculoskeletal: No Clubbing, No Cyanosis and No Edema
Skin: No Rash
Neuro: Nonfocal/grossly intact
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
# Chronic symptomatic hyponatremia likely multifactorial secondary to polydipsia/hydrochlorothiazide/SIADH from Lexapro/recent loose stools/diarrhea
-TSH WNL
-DC hydrochlorothiazide
-Continue Lexapro for now
-Fluid restriction to 40 ounces
-Nephro eval appreciated
-04/29 3% NS as per nephro
-Sodium improved to 137. Follow BMP.
# Depression
-reports depression relatively well controlled at this time.
-Continue Lexapro
-Continue alprazolam 0.25mg BID and 0.5qhs.
-possible reported weakness may be related to depression
-PT/OT eval appreciated-OP therapy.
#Chronic Headache
prn Tylenol 1000 mg Q6Hprn
last Neurology evaluation progress note appreciated in December, patient recommended to wean of Fioricet, ok to receive one dose per week
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
-had bm x1.
# HTN primary with bradycardia
# Recent orthostatic hypotension
-monitor orthostatic vitals
-cont home candesartan
-HCTZ on hold d/t hyponatremia as above. Propanolol DCed. Can start norvasc 5mg daily if needed.
Hypomagnesemia�replete and monitor. Mag 1.8
CAD with history of stent
-Continue statin
Paroxysmal atrial fibrillation with bradycardia.
-Continue Eliquis
-States baseline heart rate of 58-62. Propranolol with hold parameters.
-Telemetry reviewed with no sinus pauses.
GERD
-Continue Pepcid, omeprazole
Gout
-Continue allopurinol
Rheumatoid arthritis
-Continue prednisone
Degenerative disc disease/spinal stenosis
History of hemorrhoids
Peripheral neuropathy
BPH
-Continue tamsulosin
Full code
DVT prophylaxis�Eliquis'
PT/OT-Outpatient therapy.
More than 30 minutes spent in discharge including
Final examination of the patient
Summarizing hospital stay
Instructions for continuing care to all relevant caregivers
Preparation of discharge records, prescriptions, and referral forms
Total time spent (in minutes): 52
Anticipated Discharge: Today
Subjective/Interval History
-
Date of Service: May 02, 2024
States of headache which has resolved
Objective Data
-
Labs:
Laboratory Results
05/02/24
06:32
WBC Cancelled
Hgb Cancelled
Hct Cancelled
Plt Count Cancelled
Sodium 137
Potassium 4.3
Chloride 101
Carbon Dioxide 24
BUN 17
Creatinine 0.8
Glucose 108 H
Calcium 9.1
Vital Signs:
Vital Signs
Temp Pulse Resp BP Pulse Ox
98.2 F 58 14 153/68 97
05/02/24 07:45 05/02/24 08:14 05/02/24 07:45 05/02/24 08:14 05/02/24 07:45
I&O
10/03/1705/02/24 05/03/24
06:59 06:59 06:59
Intake Total 1050 / 1050 1020 / 1020
Output Total 600 / 600
Balance 450 / 450 1020 / 1020
--- NOTE | 2024-05-02 10:58 | W.DCSUMMARY ---
Discharge Summary
Discharge Data
Date of Admission: 04/29/24
Date of Discharge: 05/02/24
-
Pending Results: No
Hospital Course
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 Patient was evaluated by nephrology.
Patient received 3% normal saline. Patient sodium slowly starting to stabilize. Hydrochlorothiazide was discontinued. Lexapro was continued. Patient sodium continued to stabilize and Lexapro was deemed okay to be continued for now. Patient was
also found to have bradycardia and propranolol was discontinued. Patient had mild orthostatic and was recommended to okay with mild supine hypertension. If persistent blood pressure elevated and to consider starting Norvasc as outpatient.
Patient's sodium and magnesium stabilized. Patient was eval by physical and Occupational Therapy and be discharged back to [facility] with additional social support if needed.
Discharge Plan
-
Patient Disposition: Home with Home Care
Discharge Diagnosis/Procedures: Hyponatremia
Headache
Bradycardia
Condition: Fair
Diet: As tolerated
Activity: With assistance and As tolerated
Driving Restrictions: Not until seen by your Dr
Blood Work: BMP in 5-7 days via primary doctor.
Other Services: VN
Referrals:
Elroy Olguin MD [Family Provider] - in less than 1 week
Additional Discharge Medication Instructions: HCTZ and propranolol was discontinued
Prescriptions:
New
candesartan 32 mg tablet
32 mg PO DAILY 30 Days Qty: 30 0RF
Continued
prednisone 10 MG tablet
5 mg PO HS
acetaminophen 325 MG tablet
650 mg PO Q4HPRN PRN (Reason: fever)
tamsulosin [Flomax] 0.4 MG capsule
0.8 mg PO HS
famotidine 20 MG tablet
20 mg PO DAILYPRN PRN (Reason: gerd)
calcium carbonate [Antacid (calcium carbonate)] 1 TABLET tablet,chewable
1 tab PO Q6HPRN PRN (Reason: upset stomach)
nitroglycerin 0.4 MG tablet, sublingual
0.4 mg sublingual [id number] PRN (Reason: chest pain)
allopurinol 300 MG tablet
300 mg PO DAILY
rosuvastatin 5 MG tablet
5 mg PO HS
propranolol 60 MG tablet
60 mg PO DAILY
Eliquis 5 MG tablet
5 mg PO BID Qty: 0 0RF
omeprazole 20 mg Tablet,Delayed Release (Dr/Ec)
20 mg PO DAILY
alprazolam 0.5 MG tablet
0.5 mg PO HSPRN PRN (Reason: INSOMNIA) 0RF
Patient Comments:
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
Discontinued
candesartan-hydrochlorothiazid 1 EACH tablet
1 tab PO DAILY
Rx Instructions:
32-12.5
Discharge Orders:
Discharge Patient (As Directed); Ordered 05/02/24
Ordered By: Dylan Boyle
Discharge Date and Time
Print Language: NIGERIEN
[2024-05-02 11:32] VITALS: BP 129/57
--- NOTE | 2024-05-02 11:32 | CM ---
Addendum entered by Love Whitfield 05/02/24 11:46:
IMM explained & signed. In chart
Original Note:
Spoke with Niru at special care at [facility] that patient is discharged today.
Patient also spoke with her regarding transportation back to [facility] as his brother cannot transport. She stated that [facility] can transport him back home. She is also going to discuss private pay caregivers with him.
I left a message for Niru for time of pecan picker.
PLAN: Discharge to [facility] with VN
Transport by [facility]
== END 2024-05-02 14:39 | disposition home health service (06) | DRG 645 ==
LOC: 2 NORTH 08:09
PROVIDERS: Internal Medicine; Nurse Practitioner; ADMITTING PHYSICIAN Hospitalist; ATTENDING PHYSICIAN Hospitalist; CONSULT PHYSICIAN Internal Medicine; EMERGENCY PHYSICIAN Emergency Medicine; FAMILY PHYSICIAN Internal Medicine
DX: E22.2 Syndrome of inappropriate secretion of antidiuretic hormone (principal); F32.A Depression, unspecified; I48.0 Paroxysmal atrial fibrillation; E78.00 Pure hypercholesterolemia, unspecified; I10 Essential (primary) hypertension; E78.5 Hyperlipidemia, unspecified; F41.9 Anxiety disorder, unspecified; I25.10 Atherosclerotic heart disease of native coronary artery without angina pectoris; K21.9 Gastro-esophageal reflux disease without esophagitis; M10.9 Gout, unspecified; M06.9 Rheumatoid arthritis, unspecified; N40.0 Benign prostatic hyperplasia without lower urinary tract symptoms; I16.0 Hypertensive urgency; R63.1 Polydipsia; I95.1 Orthostatic hypotension; R63.4 Abnormal weight loss; K64.9 Unspecified hemorrhoids; K58.0 Irritable bowel syndrome with diarrhea; G62.9 Polyneuropathy, unspecified; R00.1 Bradycardia, unspecified; T50.2X5A Adverse effect of carbonic-anhydrase inhibitors, benzothiadiazides and other diuretics, initial encounter; Y92.9 Unspecified place or not applicable; Z60.2 Problems related to living alone; I25.2 Old myocardial infarction; Z79.01 Long term (current) use of anticoagulants; Z79.52 Long term (current) use of systemic steroids; Z95.5 Presence of coronary angioplasty implant and graft; Z87.442 Personal history of urinary calculi; Z86.19 Personal history of other infectious and parasitic diseases; Z88.5 Allergy status to narcotic agent; Z88.8 Allergy status to other drugs, medicaments and biological substances
CPT/HCPCS: 80048; 80053; 81003; 83735; 83880; 83935; 84100; 84300; 84443; 84484; 85025; 85027; 85610; 87045; 87046; 87077; 87427; 93005; 97116; 97162; 97166; 99284

== ENCOUNTER 2024-05-05 16:08 | Inpatient (IN) | payer OTHER, SELFPAY ==
[2024-05-05 13:34] VITALS: BP 128/77
[2024-05-05 14:00] VITALS: BP 112/70
[2024-05-05 14:15] LABS: % Basophils 0.4 % (0-2); % Eosinophils 0.7 % (0-6); % Immature Granulocytes 0.6 % (0-0.5); % Lymphocytes 20.9 % (20.5-51.1); % Monocytes 7.3 % (1.7-9.3); % Neutrophils 70.1 % (42.2-75.2); Absolute Eosinophils 0.1 10^3/uL (0-0.7); Absolute Lymphocytes 1.4 10^3/uL (1.2-3.4); Absolute Monocytes 0.5 10^3/uL (0.1-0.6); Absolute Neutrophils 4.7 10^3/uL (1.4-6.5); Hematocrit 41.8 % (39.0-52.0); Hemoglobin 14.3 g/dL (13.0-18.0); Mean Corp Hgb Conc. 34.2 g/dL (33.0-37.0); Mean Corpuscular Hgb 31.8 pg (27.0-31.0); Mean Corpuscular Volume 93.1 fL (80.0-94.0); Mean Platelet Volume 10.9 fL (7.4-10.4); Nucleated Red Blood Cells % 0 % (-); Platelet Count 165 10^3/uL (130-400); Red Blood Cell Count 4.49 10^6/uL (4.70-6.10); Red Cell Dist. Width 14.2 % (11.5-14.5); White Blood Cell Count 6.7 10^3/uL (4.8-10.8)
[2024-05-05 14:26] VITALS: BP 112/70
[2024-05-05 14:33] LABS: ALT (SGPT) 22 U/L (0-50); AST (SGOT) 23 U/L (17-59); Albumin 3.8 g/dl (3.5-5.0); Alkaline Phosphatase 31 U/L (38-126); Blood Urea Nitrogen 24 mg/dl (9-20); Calcium 9.7 mg/dl (8.4-10.2); Carbon Dioxide 25 mmol/L (22-30); Chloride 102 mmol/L (98-107); Glucose 142 mg/dl (70-99); Magnesium 1.5 mg/dl (1.6-2.3); Potassium 3.8 mmol/L (3.5-5.1); Sodium 138 mmol/L (135-145); Total Bilirubin 0.7 mg/dl (0.2-1.3); Total Protein 6.1 g/dl (6.3-8.2); eGFR > 60.00
[2024-05-05] MEDS: NSS 1000 IV (14:35)
--- NOTE | 2024-05-05 14:45 | ED.GENMED ---
History of Present Illness
General
Chief Complaint: Heart Rate Problem
Source: patient, records, family, ambulance crew, physician and previous hospital records
Exam Limitations: none
Time Seen by Provider: 05/05/24 13:30
History of Present Illness
History of Present Illness:
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
for hyponatremia HCTZ was stopped as well drinking alcohol about 3 shots a week admits to some depression living alone is , son is with him is very supportive, being seen by Dr. Otto Olguin his hemotherapist and Hammad Huang his management planner,
and Dr. Jonnie mcbride psychiatrist
He felt some fast heart rate earlier today, no chest pain or shortness of breath he does feel depressed no suicidal thoughts no delusions or hallucinations
Past History
Past History
ED Past Medical History: Arrthythmia (Atrial fib), CAD, GERD, HTN, Hypercholesterolemia, [place], Psychiatric (Anxiety, Depression) and Other (pancreatitis, Back pain, Neuropathy, Numbness and tingling arm and legs, cardiomyopathy, IBS, H-pylori, Renal
calculus, GOUT, Giant cell arteritis, )
ED Past Surgical History: Appendectomy, Cardiac (LAD stent), Orthopedic (Left ankle surgery. Left fibula surgery, Right bicep repair, Right trigger finger, Lumbar laminectomy, ), Tonsilectomy (Adenoids), Urological (Lithotripsy) and Other (
intussusception x2 as a child, Hemorrhoids, cataracts, Left hernia repair, )
Social History
Tobacco: Non-smoker
Alcohol: Occasional
Drug: None
Personal:
Living: assisted living
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
Family History
Family History: Hypertension
Review of Systems
Review of Systems
All Other Systems: Not applicable
Constitutional: Reports fatigue and sleep disturbance
EENT: Reports no symptoms
Respiratory: Reports no symptoms
Cardiac: Reports palpitations
ABD/GI: Reports no symptoms
Neurological: Reports no symptoms
Psychiatric: Reports depression and anxiety; Denies suicidal or hallucinations
Phy Exam
Physical Exam
Physical Exam:
Physical Exam
General: 83 male flat affect cooperative
Neck: No jaundice
Heart: Irregular
Lungs: no acute respiratory distress. clear bilaterally
Neuro: alert and oriented. no focal neurological deficits
Skin: no rash
Psychiatric: Depressed cooperative not delusional no hallucinations not suicidal
Extremities: no edema.
Course
Orders/Labs/Results
Orders:
Orders
05/05/24 13:31
Electrocardiogram (*1) Stat
Reason for Study: Other
Other Reason for Exam: chest pain
Cardiac Monitoring- Treatment ONCE
EKG- Treatment ONCE
05/05/24 13:49
Comprehensive Metabolic Panel Urgent
Magnesium Urgent
TSH Urgent
05/05/24 13:50
Complete Blood Count/With Diff Urgent
05/05/24 14:21
Urinalysis Reflex To Culture Urgent
Date Specimen was Collected: 05/05/24
Time Specimen was Collected: 14:44
0.9% Sodium Chloride 1000 ml [Nss] 1,000 ml IV BOLUS
Abnormal Lab Results
05/05/24 05/05/24
13:49 13:50
RBC 4.49 L 10^6/uL
(4.70-6.10)
MCH 31.8 H pg
(27.0-31.0)
MPV 10.9 H fL
(7.4-10.4)
Immature Gran % 0.6 H %
(0-0.5)
BUN 24 H mg/dl
(9-20)
Glucose 142 H mg/dl
(70-99)
Magnesium 1.5 L mg/dl
(1.6-2.3)
Alkaline Phosphatase 31 L U/L
(38-126)
Total Protein 6.1 L g/dl
(6.3-8.2)
05/05/24 13:50
05/05/24 13:49
Vital Signs
Initial and Last Documented VS:
Initial Vital Signs
Temp Pulse Resp BP
98.2 F 93 16 128/77
05/05/24 13:34 05/05/24 13:34 05/05/24 13:34 05/05/24 13:34
Last Documented Vital Signs
Temp Pulse Resp BP Pulse Ox
98.2 F 73 13 112/70 98
05/05/24 13:34 05/05/24 14:15 05/05/24 14:15 05/05/24 14:26 05/05/24 14:15
MDM/Problems Addressed
Differential Diagnosis Includes:
Primary psychiatric medication induced alcohol induced A-fib paroxysmal withdrawal of beta-rosalinda
MDM/Problems Addressed:
Depression tachycardia A-fib
Chronic conditions affecting care: Arrhythmia
Acute Exacerbation and/or Progression of Chronic Illness: Arrhythmia
*Pulse Oximetry
Patient hypoxic: no
*EKG
Interpreted by ED Provider?: Yes
Interpretation: abnormal
Comparison EKG: no comparison EKG present
Heart Rate: 78
Rate: normal
Rhythm: a-fib
Ischemia: non-specific ST changes
*Line Welder Interpretation
Rate: normal
Interpretation: abnormal
Heart Rate: 78
Rhythm: a-fib
*Critical Care Note
Total Time (30-74mins, 75-104mins- exclusive of procedures): Not Applicable
Data Reviewed
Review of Other/Old Records Reveals: Labs and Discharge Summary
Source: patient, records, physician and previous hospital records
Update Note
Update Note:
Update, multiple issues, suspect mainly psychiatric, medication induced, A-fib appears pretty well-controlled. He is anticoagulated, have requested psychiatric consultation
ED Attending Note
-
Portions of this chart may have been created with voice recognition software.� Occasional wrong word or��sound alike� substitutions may have occurred due to the inherent limitations of voice recognition software.
Discharge Plan
Departure
Prescriptions:
No Action
prednisone 10 MG tablet
5 mg PO HS
acetaminophen 325 MG tablet
650 mg PO Q4HPRN PRN (Reason: fever)
tamsulosin [Flomax] 0.4 MG capsule
0.8 mg PO HS
famotidine 20 MG tablet
20 mg PO DAILYPRN PRN (Reason: gerd)
calcium carbonate [Antacid (calcium carbonate)] 1 TABLET tablet,chewable
1 tab PO Q6HPRN PRN (Reason: upset stomach)
nitroglycerin 0.4 MG tablet, sublingual
0.4 mg sublingual [id number] PRN (Reason: chest pain)
allopurinol 300 MG tablet
300 mg PO DAILY
rosuvastatin 5 MG tablet
5 mg PO HS
Eliquis 5 MG tablet
5 mg PO BID Qty: 0 0RF
omeprazole 20 mg Tablet,Delayed Release (Dr/Ec)
20 mg PO DAILY
candesartan 32 mg tablet
32 mg PO DAILY 30 Days Qty: 30 0RF
alprazolam 0.25 mg Tablet
0.25 mg PO 0800,1500
alprazolam 0.5 MG tablet
0.5 mg PO HSPRN PRN (Reason: INSOMNIA) 0RF
Patient Comments:
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
Referrals:
Elroy Olguin MD [Family Provider] -
Interventions
Interventions:
*Risk Screen - Suicide Last Done: 05/05/24 13:34
*General Assessment Last Done: 05/05/24 13:34
*Neglect/Abuse Screening Last Done: 05/05/24 13:34
ED- Fall Risk Assessment Last Done: 05/05/24 13:43
*ED COVID-19 Vaccine History Last Done: 05/05/24 13:44
ED- Cardiac Assessment Last Done: 05/05/24 13:45
ED- Pulmonary Assessment Last Done: 05/05/24 13:45
Discharge Date and Time
Print Language: KAZAKH
[2024-05-05 15:03] LABS: TSH 0.05 uIU/ml (0.47-4.68)
[2024-05-05 15:18] LABS: Urine Albumin Negative (Neg - Trace); Urine Bilirubin Negative (Negative); Urine Character Clear (Clear); Urine Color Yellow; Urine Glucose Negative (Negative); Urine Ketone Negative (Negative); Urine Leukocyte Trace (Negative); Urine Nitrite Negative (Negative); Urine Occult Blood Negative (Negative); Urine Urobilinogen Negative (Neg - 1+)
[2024-05-05 15:24] LABS: Urine Red Blood Cell 0-2 /HPF (0-2); Urine White Cell 0-2 /HPF (0-5)
--- NOTE | 2024-05-05 15:29 | CON.CAR ---
Consultation
Consultation Request
Date/Time Consultation Requested: 05/05/2024 at 1430
Date/Time Consultation Performed: 05/05/2024 at 1430
Requesting Provider: Dr. Sánchez
Performing Provider: Dr. Edward
Reason for Consultation: A-fib
Medical History
-
History of Present Illness:
Primary care physician Dr. Olguin
Primary laboratory supervisor Dr. Huang
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
depression and anxiety with recent hospitalization with hyponatremia and issues with depression who was discharged last week and now returns to the ER. Patient had stated that he was having issues with depression and anxiety over the past 6 months
he has been under the care of a psychiatrist he ultimately was admitted to the hospital last week with hyponatremia. HCTZ was discontinued. Nephrology was consulted treated with 3% saline. Nephrology felt that SSRI could be continued for the time
being. During the hospitalization patient was noted to have some bradycardia and due to some nocturnal bradycardia with heart rates in the 40s the patient reports that his propranolol ER 60 mg a day was discontinued
Patient states that this morning he was doing his usual activities and he felt he had his hands were shaking that he had a tremor and he thought he needed to eat something. He checked his pulse and was noticed that he was in A-fib heart rates were
in the 90s to 100 by his report. He went and had something to eat but still did not feel great. He called me regarding the A-fib at that time his blood pressure and heart rate appear to be stable but based on the way he felt patient decided to go
to the ER for additional evaluation.
On arrival patient's heart rates in A-fib are in the 80s blood pressure is currently stable he says the way he feels he just does not feel he can go home.
He has had issues with anxiety and depression. He had some issues with akathisia when he was on mirtazapine so it was discontinued. He was on Lexapro for a month but it was just discontinued on after further discussion with the
psychiatrist there was some question of whether could be contributing to his hyponatremia.
Further review of systems the patient was having some more issues with diarrhea prior to his last admission a week ago but those issues have improved. He still has some issues with urgency.
He has chronic back issues with some chronic pain that radiates to the hips and sometimes some residual numbness in his left leg.
No fever cough. No other neurologic symptoms no prior history of tremor.
Social history. lives at [facility]
Family history CAD
Past medical history
Paroxysmal atrial fibrillation
Coronary artery disease/NSTEMI/LAD stent 2018
Chronic anticoagulation
Rheumatoid arthritis
Hypertension
Hypercholesterolemia
Lumbar laminectomy
Depression/anxiety
GERD
Nephrolithiasis
Neuropathy
Past Medical History
Past Medical History: Other (As above)
Social History
Tobacco: Non-Smoker
Family History
Family History: CAD
Allergies / Home Medications
Allergy/AdvReac Type Severity Reaction Status Date / Time
carvedilol Allergy Unknown Unknown Verified 05/05/24 13:48
meperidine [From Demerol] Allergy Unknown Unknown Verified 05/05/24 13:48
methotrexate Allergy Unknown Unknown Verified 05/05/24 13:48
atorvastatin calcium Allergy myalgias Verified 05/05/24 13:48
[From Lipitor]
lisinopril Allergy COUGH Verified 05/05/24 13:48
meperidine HCl [From Demerol] Allergy Nausea Verified 05/05/24 13:48
piroxicam [From Feldene] Allergy Gastritis Verified 05/05/24 13:48
simvastatin [From Zocor] Allergy myalgias Verified 05/05/24 13:48
MERTAZIPINE AdvReac Unknown Uncoded 05/05/24 13:48
�Medication �Instructions �Recorded �Confirmed �Type
alprazolam 0.5 mg tablet 0.5 mg PO HSPRN PRN INSOMNIA 01/02/20 04/29/24 Rx
prednisone 10 mg tablet 5 mg PO HS Anti-inflammatory 03/12/20 04/29/24 History
acetaminophen 325 mg tablet 650 mg PO Q4HPRN PRN fever 09/06/20 04/29/24 History
tamsulosin 0.4 mg capsule (Flomax) 0.8 mg PO HS Urinary issue 09/07/20 04/29/24 History
allopurinol 300 mg tablet 300 mg PO DAILY Gout 01/05/21 04/29/24 History
calcium carbonate (Antacid 1 tab PO Q6HPRN PRN upset stomach 01/05/21 04/29/24 History
(calcium carbonate))
famotidine 20 mg tablet 20 mg PO DAILYPRN PRN gerd 01/05/21 04/29/24 History
nitroglycerin 0.4 mg sublingual 0.4 mg sublingual [id number] PRN 01/05/21 04/29/24 History
tablet chest pain
rosuvastatin 5 mg tablet 5 mg PO HS High cholesterol 01/05/21 04/29/24 History
apixaban 5 mg tablet (Eliquis) 5 mg PO BID Blood clot 01/30/21 04/29/24 Rx
prevention/tx ##0
omeprazole 20 mg tablet,delayed 20 mg PO DAILY Gastrointestinal 01/08/24 04/29/24 History
release Issue
alprazolam 0.25 mg tablet 0.25 mg PO 0800,1500 05/02/24 05/02/24 History
candesartan 32 mg tablet 32 mg PO DAILY 30 days #30 tabs 05/02/24 Rx
Review of Systems
-
All other systems: Negative unless noted
Physical Exam
Vital Signs
Temp Pulse Resp BP Pulse Ox
98.2 F 73 13 112/70 98
05/05/24 13:34 05/05/24 14:15 05/05/24 14:15 05/05/24 14:26 05/05/24 14:15
Lab Results
05/05/24 13:50
05/05/24 13:49
Physical Exam
General: Well Developed and Well Nourished
HEENT: Normocephalic and Other (EOMI, PERRL, external ear and oral exam unremarkable neck of adenopathy no JVD no carotid bruit)
Cardiac: Regular Rhythm
GI: Soft, Non Tender, Non Distended and Normal Bowel Sounds
Musculoskeletal: No Clubbing, No Cyanosis and No Edema (Trace lower extremity edema)
Skin: Warm, Dry and Rash (No rash)
Neuro: Awake, Alert and Oriented
Hematologic/Lymphatic: No Lymphadenopathy
Impression / Plan
-
Admit for observation
Paroxysmal atrial fibrillation.
-Patient with sinus bradycardia on recent hospitalization. Propranolol recently stopped. Now recurrent A-fib despite being off heart rates are reasonably controlled. I do not think he is having a lot of symptoms that are attributed to A-fib.
Will continue to observe on telemetry. Based on rates both in A-fib and in sinus rhythm we can determine whether to resume low-dose propranolol.
-[id number] -at least 4 (age greater than 75, hypertension and coronary artery disease)
-Continue anticoagulation with Eliquis
-If patient remains in atrial fibrillation then electrical cardioversion may be considered in the future. In the past he is converted on his own.
.
Coronary artery disease. History of LAD stenting 2017
- stable without angina
-Patient is on Eliquis and not on aspirin.
.
General sense of not feeling well. Suspect multifactorial. Patient had issues with depression and anxiety and admits that he still feels and lonely living by himself at [facility]. Clearly depression may be playing a significant role in how he
feels. However we will continue to assess for other factors which may contribute.
-Check urinalysis.
-TSH and T4
.
Hyponatremia. Recent hospitalization.
-Discharged last week after treatment. Sodium appears stable at 138
-If restarted on SSRI then we will need to continue to monitor closely.
.
Depression/anxiety additional management as directed by psychiatry
-Psychiatry consulted. Patient is currently being seen will await outcome of that assessment.
.
Abnormal TSH. Low TSH last admission. Patient on chronic prednisone
-Repeat TSH and check T4
.
Rheumatoid arthritis
Patient on chronic prednisone.
-
Data Reviewed
-
EKG: Report Reviewed by me and Discussed with Physician
Medical Tests (Nuc Med, Echo etc): Report Reviewed by me
Labs: Labs Reviewed by me
[2024-05-05 16:26] LABS: Total Thyroxine 6.11 ug/dl (5.5-11.0)
--- NOTE | 2024-05-05 16:28 | CS.PSYCHR ---
Consult Summary - Psychiatry
-
Pt is 83 yo male, with hx of anxiety and depression, presenting with increased heart rate, feeling shaky. Pt was admitted to last week with hyponatremia. HCTZ was discontinued. Nephrology was consulted and treated with 3% saline, recommended
that SSRI could be continued for the time being. During that stay, pt had some nocturnal bradycardia with heart rates in the 40s; and patient reports that his propranolol ER 60 mg daily was stopped.
Pt reports increasing depression since Remeron was discontinued due to restlessness/pacing/decreased sleep ('akathisia') in February. He reports withdrawing from activities, decreased appetite with approx 8 lb weight loss, feeling lonely, feeling
more anxious and dysphoric in the evenings. Pt recently started seeing psychiatrist Dr Lim, who switched him to Lexapro 5 mg QD, increased Xanax- added 0.25 mg BID to established dose of 0.5 mg HS on 04/23. Pt states he only had 2 doses of
Lexapro prior to diagnosis of hyponatremia. Pt denies any suicidal ideation.
Psych Hx: depression, anxiety- started seeing psychiatrist Dr Manuel 3 years ago when going through divorce. Was on Remeron up to 30 mg, stopped in February
Now followed by outpatient psychiatrist Dr Lim; previous psychiatrist this year
PMH: Paroxysmal A fib, Coronary artery disease/NSTEMI/LAD stent 2017, Rheumatoid arthritis, HTN, Hypercholesterolemia, Lumbar laminectomy, GERD, Nephrolithiasis, Neuropathy
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
3 years ago. 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
MSE: alert, oriented, well groomed, making good eye contact. Affect full and appropriate, mood depressed. Speech coherent/articulate, thought goal-directed. No signs of psychosis or agitation. Denies any suicidal ideation. Insight good.
Imp: Depressive d/o, R/o MDD, single episode
Unspecified anxiety
Rec: discussed options at length; pt would like to resume trial of Lexapro and monitor Sodium level. Any alternative antidepressant would also carry a small risk of affecting sodium. Will continue Xanax (daytime doses were added almost 2 weeks
ago)- reviewed risk of dependence with pt
Will follow
[2024-05-05 17:12] VITALS: BP 142/79
[2024-05-05] MEDS: TYLENOL 650 MG PO ×2 (17:42→21:48)
[2024-05-05 19:12] VITALS: BP 121/79
[2024-05-05] MEDS: ELIQUIS 5 MG PO (21:05)
[2024-05-05] MEDS: FLOMAX 0.8 MG PO (21:05)
[2024-05-05] MEDS: CRESTOR 5 MG PO (21:05)
[2024-05-05] MEDS: DELTASONE 5 MG PO (21:05)
[2024-05-05] MEDS: XANAX 0.5 MG PO (21:05)
[2024-05-05 23:43] VITALS: BP 110/62
[2024-05-06] MEDS: TYLENOL 650 MG PO ×3 (01:48→19:46)
[2024-05-06 03:56] VITALS: BP 113/49
[2024-05-06 07:30] VITALS: BP 133/64
[2024-05-06 08:33] LABS: % Basophils 0.5 % (0-2); % Eosinophils 0.3 % (0-6); % Immature Granulocytes 0.7 % (0-0.5); % Lymphocytes 22.6 % (20.5-51.1); % Monocytes 9.4 % (1.7-9.3); % Neutrophils 66.5 % (42.2-75.2); Absolute Lymphocytes 1.4 10^3/uL (1.2-3.4); Absolute Monocytes 0.6 10^3/uL (0.1-0.6); Hematocrit 38.5 % (39.0-52.0); Hemoglobin 12.7 g/dL (13.0-18.0); Mean Corpuscular Hgb 30.2 pg (27.0-31.0); Mean Corpuscular Volume 91.7 fL (80.0-94.0); Mean Platelet Volume 11.2 fL (7.4-10.4); Nucleated Red Blood Cells % 0 % (-); Platelet Count 167 10^3/uL (130-400); Red Cell Dist. Width 14.5 % (11.5-14.5); White Blood Cell Count 6.1 10^3/uL (4.8-10.8)
[2024-05-06 08:44] LABS: Albumin 3.6 g/dl (3.5-5.0); Blood Urea Nitrogen 20 mg/dl (9-20); Calcium 9.1 mg/dl (8.4-10.2); Carbon Dioxide 25 mmol/L (22-30); Chloride 102 mmol/L (98-107); Estimated Creatinine Clearance 70 ml/min; Glucose 99 mg/dl (70-99); Phosphorus 3.4 mg/dl (2.5-4.5); Sodium 137 mmol/L (135-145); eGFR > 60.00
[2024-05-06 09:14] LABS: Cortisol, Random 2.1 ug/dl
[2024-05-06] MEDS: ZYLOPRIM 300 MG PO (10:04)
[2024-05-06] MEDS: PROTONIX 40 MG PO (10:05)
[2024-05-06] MEDS: LEXAPRO 5 MG PO (10:05)
[2024-05-06] MEDS: ELIQUIS 5 MG PO ×2 (10:05→19:47)
[2024-05-06] MEDS: XANAX 0.25 MG PO ×2 (10:05→14:51)
[2024-05-06] MEDS: ATACAND 32 MG PO (10:05)
[2024-05-06 11:23] VITALS: BP 144/67
--- NOTE | 2024-05-06 12:32 | CON.HOSP ---
Consultation
-
Date/Time Consultation Requested: May 05, 2024 at 3:30 PM
Date/Time Consultation Performed: May 06, 2024 at 10 AM
Requesting Provider: Dr. Jung Edward
Performing Provider: Dr. Chanell Arreguin
Reason for Consultation: Failure to thrive, depression
Family Physician
-
Family Physician: Elroy Olguin
Chief Complaint
-
Weakness, feeling terrible, depressed
History of Present Illness
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 During that admission he complained of chronic headaches, gout, rheumatoid arthritis,
depression who had symptomatic hyponatremia. He received 3% normal saline that admission. He was started on Lexapro but only took 2 doses prior to him coming to the hospital for that admission with hyponatremia. He was on hydrochlorothiazide
which was stopped.
Patient returns on May 05, 2024 with symptoms of atrial fibrillation, feeling uneasy, ongoing depression, difficulty swallowing and generally not feeling well.
We are asked to evaluate whether there are any other issues possibly contributing other than just depression.
Medical History
Past Medical History
Past Medical History: Reports Other
Additional Past Medical History:
Coronary artery disease with stent placement
Paroxysmal atrial fibrillation
Essential hypertension
Gastroesophageal reflux disease
Gout
Rheumatoid arthritis on chronic prednisone therapy
History of spinal stenosis with degenerative disc disease
Peripheral neuropathy
Benign prostatic hyperplasia
Anxiety/depression
Hyponatremia recent admission symptomatic
Past Surgical History: Reports Other
Additional Past Surgical History:
Appendectomy
Cardiac stent
Orthopedic surgery with left ankle surgery, left fibula surgery, right bicep repair, right trigger finger, lumbar laminectomy
Tonsillectomy
Urological with lithotripsy
Intussusception x 2 is a child
Hemorrhoids
Cataracts
Left hernia repair
Social History
Tobacco: Former Smoker (Quit at age 27)
Alcohol: Other (Drinks 1 shot 3 times per week)
Drug: None
Personal:
Living: Alone
Employment: Retired
Family History
Family History: Reviewed & Not Pertinent
Allergies / Home Medications
Allergies reflects when Allergies were last updated in [facility].
Home Medications with original date entered in [facility]
Allergy/Medication List:
Allergies
Allergy/AdvReac Type Severity Reaction Status Date / Time
carvedilol Allergy Unknown Unknown Verified 05/05/24 13:48
meperidine [From Demerol] Allergy Unknown Unknown Verified 05/05/24 13:48
methotrexate Allergy Unknown Unknown Verified 05/05/24 13:48
atorvastatin calcium Allergy myalgias Verified 05/05/24 13:48
[From Lipitor]
lisinopril Allergy COUGH Verified 05/05/24 13:48
meperidine HCl [From Demerol] Allergy Nausea Verified 05/05/24 13:48
mirtazapine Allergy SLEEP Verified 05/05/24 17:34
DEPRIVATION
AND
INCREASE
IN ANXIETY
piroxicam [From Feldene] Allergy Gastritis Verified 05/05/24 13:48
simvastatin [From Zocor] Allergy myalgias Verified 05/05/24 13:48
Home Medications
prednisone 10 mg tablet 5 mg PO HS Anti-inflammatory 03/12/20
tamsulosin 0.4 mg capsule (Flomax) 0.8 mg PO HS Urinary issue 09/07/20
allopurinol 300 mg tablet 300 mg PO DAILY Gout 01/05/21
rosuvastatin 5 mg tablet 5 mg PO HS High cholesterol 01/05/21
apixaban 5 mg tablet (Eliquis) 5 mg PO BID Blood clot prevention/tx ##0 01/30/21
omeprazole 20 mg tablet,delayed release 20 mg PO DAILY Gastrointestinal Issue 01/08/24
alprazolam 0.25 mg tablet 0.25 mg PO BID 05/02/24
candesartan 32 mg tablet 32 mg PO DAILY 30 days #30 tabs 05/02/24
acetaminophen 650 mg tablet,extended release 1,300 mg PO [id number] PRN headaches 05/05/24
alprazolam 0.5 mg disintegrating tablet 0.5 mg PO HS 05/05/24
escitalopram oxalate 5 mg tablet (Lexapro) 5 mg PO DAILY 05/05/24
propranolol 20 mg tablet 20 mg PO BIDPRN PRN a fib 05/05/24
propranolol 60 mg capsule,24 hr,extended release 60 mg PO DAILY 05/05/24
Review of Systems
-
History Source: Patient
A 12 point Review of Systems was completed except as noted: Yes
Constitutional: Reports Fatigue and Sleep Disturbance; Denies Weight Gain or Weight Loss
EENT: Reports No Symptoms
Respiratory: Reports No Symptoms
Cardiac: Reports Palpitations
Abdomen/GI: Reports Diarrhea and Other (Occasional difficulty swallowing which he describes sounding as if he has esophageal spasms); Denies Abdominal Pain, Nausea or Vomiting
: Reports No Symptoms
Musculoskeletal: Reports Edema (Bilateral lower extremities improved with compression stockings)
Skin: Reports No Symptoms
Neurological: Reports Headache and Weakness
Endocrine: Reports No Symptoms
Hematologic/Lymphatic: Reports No Symptoms
Psych: Reports Depression
Physical Exam
Vital Signs
Vital Signs
Temp Pulse Resp BP Pulse Ox
97.9 F 58 18 144/67 95
05/06/24 11:23 05/06/24 11:23 05/06/24 11:23 05/06/24 11:23 05/06/24 11:23
Physical Exam
General: Well Developed, Well Nourished and No Apparent Distress
HEENT: Normocephalic, Anicteric and Atraumatic
Respiratory: Clear; Negative Wheezes, Rales or Rhonchi
Cardiac: Regular Rhythm; Negative Irregular Rhythm, Bradycardia or Tachycardia
GI: Soft, Non Tender, Non Distended and Normal Bowel Sounds
Musculoskeletal: No Clubbing and No Cyanosis; Negative Edema (Trace edema bilaterally--wearing compression socks)
Skin: Warm
Neuro: Awake, Alert and Nonfocal/Grossly Intact
Psych: Depressed (Flat affect)
Laboratory Results
-
Laboratory Results
05/06/24 06:50
05/06/24 06:50
Total Bilirubin 0.7 mg/dl (0.2-1.3) 05/05/24 13:49
AST 23 U/L (17-59) 05/05/24 13:49
ALT 22 U/L (0-50) 05/05/24 13:49
Alkaline Phosphatase 31 U/L (38-126) L 05/05/24 13:49
Impression / Plan
-
Patient is an 83-year-old male
Nonspecific complaints with weakness, 'feeling terrible', depression, internal nervousness, difficulty swallowing--given his longstanding prednisone use (5 mg daily which was weaned to that dose over time) and along with recent hyponatremia (doubt
related to 2 days of Lexapro prior to his admission)--adrenal insufficiency must be considered--random cortisol level w(hich is unreliable due to the chronic longstanding prednisone use) was low at 2.1--would do full cosyntropin stimulation test in
the a.m.--patient may need more prednisone or physiologic doses of hydrocortisone which may also improve his depression
Another possibility is apathetic hyperthyroidism with TSH of 0.05 which is low--T4 done on admission is 6.1 and normal--will recheck--endocrine follow-up as an outpatient may be recommended here to evaluate not only the thyroid but adrenal glands as
well.
From a swallowing standpoint, what he describes is more consistent with an esophageal spasm--however, will ask speech to see an order video swallow for the morning
I do suspect however that if all of the studies are normal that depression is the major player here--agree with continuing Lexapro at this time and monitoring sodium levels--alprazolam has been ordered and will continue
Other medical issues:
Paroxysmal atrial fibrillation--will defer to cardiology as patient appears to have converted back to sinus rhythm--continue Eliquis
Gout--continue allopurinol
Essential hypertension--continue candesartan
Gastroesophageal reflux disease--continue omeprazole
Bradycardia--propranolol has been on hold (he states he developed hand tremors recently as well after it was stopped) propranolol can be given for benign essential tremors and he may be seeing some of that- at this point would not change anything
Benign prostatic hyperplasia--continue tamsulosin
Hyperlipidemia--continue rosuvastatin
Thank you for allowing me to consult on your patient. Will follow.
Time for consultation 90 minutes.
--- NOTE | 2024-05-06 12:41 | W.PN.CD ---
Today's Communication / Plan
-
Will monitor on propranolol 10 mg twice daily today
Continue treatment of depression as directed by psychiatry
Additional evaluation by Dr. Arreguin as prescribed.
Reassessment tomorrow. Possible discharge in the next 24 to 48 hours
Impression / Plan
-
Admit for observation
Paroxysmal atrial fibrillation.
-Patient with sinus bradycardia on recent hospitalization. Propranolol recently stopped. Now recurrent A-fib despite being off heart rates are reasonably controlled. I do not think he is having a lot of symptoms that are attributed to A-fib.
-Spontaneously converted to sinus rhythm on 05/05/2024
-Reviewed issues with patient regarding reinitiation of propranolol including reinitiating previous dose but ultimately we decided to use short acting propranolol 10 mg twice daily.
-[id number] -at least 4 (age greater than 75, hypertension and coronary artery disease)
-Continue anticoagulation with Eliquis
.
Coronary artery disease. History of LAD stenting 2017
- stable without angina
-Patient is on Eliquis and not on aspirin.
.
General sense of not feeling well. Suspect multifactorial.
-Continue to treatment of depression as directed by psychiatry
-Internal medicine/Dr. Arreguin doing additional evaluation for other medical causes of symptoms. Adrenal insufficiency assessment and progress
-Low TSH with normal T4 may be impacted by patient's prednisone use will need to be followed as outpatient
.
Hyponatremia. Recent hospitalization.
-Discharged last week after treatment. Sodium appears stable at 138
-If restarted on SSRI then we will need to continue to monitor closely.
.
Depression/anxiety additional management as directed by psychiatry
-Psychiatry consulted. Patient is currently being seen will await outcome of that assessment.
.
Abnormal TSH. Low TSH last admission. Patient on chronic prednisone
- Low TSH with normal T4 may be impacted by patient's prednisone use will need to be followed as outpatient
.
.
Rheumatoid arthritis
Patient on chronic prednisone.
-
Physical Exam
Vital Signs/Labs
Vital Signs
Temp Pulse Resp BP Pulse Ox
97.9 F 58 18 144/67 95
05/06/24 11:23 05/06/24 11:23 05/06/24 11:23 05/06/24 11:23 05/06/24 11:23
05/05/24 05/06/24 05/07/24
06:59 06:59 06:59
Actual Weight 82.055 kg
05/06/24 06:50
05/06/24 06:50
Magnesium 1.5 mg/dl (1.6-2.3) L 05/05/24 13:49
TSH 0.05 uIU/ml (0.47-4.68) L 05/05/24 13:49
Physical Exam
Constitutional: No acute distress
Cardiovascular: Rhythm & rate is regular
Respiratory: Respiratory effort normal, Wheeze Absent and Rhonchi Absent
GI: Soft
Neuro/Psych: Alert
Data Reviewed
-
Date of Service: May 06, 2024
Medical Decision Making: Reviewed Test Results
Medical Tests (PFT, Pathology etc): Report Reviewed by me
Labs: Labs Reviewed by me
--- NOTE | 2024-05-06 12:51 | CM ---
Patient seen at bedside.
IA completed.
Dx: Afib
PMH: AFIB, CAD, NSTEMI/LAD stent 2018, RA, HTN
Patient is a resident of [facility]
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
Discharged last week from .
Current with [facility]
Left message with Niru from [facility] to coordinate van transportation once discharged also to resume companions.
PCP: Elroy Olguin
Pharmacy: [facility]
PLAN: home, [facility]
[2024-05-06] MEDS: INDERAL 10 MG PO ×2 (13:36→19:47)
[2024-05-06 14:41] VITALS: BP 129/60
--- NOTE | 2024-05-06 16:22 | PTOTSP ---
SPEECH THERAPY SWALLOW EVALUATION:
Patient exhibits grossly functional oropharyngeal swallow at this time. Endorsed history of dysphagia characterized by globus sensation with solids at level of sternal notch, esophagus slow to empty, GERD, regurgitation. Suspect etiology of
self-reported dysphagia symptoms related to esophageal dysphagia and/or anxiety/depression. Recommend continue Regular texture solids, thin liquids. Medications whole with liquid as best tolerated. General aspiration and Reflux precautions. Consider
GI consult. ST to proceed with VSE as ordered by Dr. Arreguin tomorrow Monday 05/07 to further assess swallow physiology at that time.
RECOMMEND:
1) Regular texture diet, thin liquids
2) Medications whole with liquid as best tolerated
3) General Aspiration and Reflux precautions
4) Videofluroscopic Swallowing Study tomorrow 05/07
5) Consider GI consult
[2024-05-06 19:23] VITALS: BP 113/64; BP 135/67; BP 140/67; PULSE 55; PULSE 56; PULSE 64
[2024-05-06] MEDS: CRESTOR 5 MG PO (22:05)
[2024-05-06] MEDS: DELTASONE 5 MG PO (22:05)
[2024-05-06] MEDS: FLOMAX 0.8 MG PO (22:05)
[2024-05-06] MEDS: XANAX 0.5 MG PO (22:06)
[2024-05-06 23:06] VITALS: BP 133/69
[2024-05-07] VITALS (7 sets, daily range): BP systolic 113–151; BP diastolic 56–74; PULSE 53–65
[2024-05-07] MEDS: TYLENOL 650 MG PO ×3 (00:32→21:43)
[2024-05-07 07:52] LABS: TSH Reflex To Free T4 0.72 uIU/ml (0.47-4.68)
--- NOTE | 2024-05-07 08:42 | VNURNOTE ---
Chart reviewed. Patient is current with [facility] nursing, PT, OT, [employer]. Will continue to follow hospital course and DC plans.
[2024-05-07] MEDS: NSS (PRESERVATIVE FREE) 1 ML IV (09:20)
[2024-05-07] MEDS: CORTROSYN 0.25 MG IV (09:20)
--- NOTE | 2024-05-07 10:30 | W.PN.CD ---
Today's Communication / Plan
-
No new issues overnight. PAF stable. Currently in sinus rhythm and tolerating current dose of propranolol.
Appreciate consultation by Dr. Arreguin. Will await results of Cortrosyn stimulation test and results of swallowing study.
Continued management of depression as directed by psychiatry
Impression / Plan
-
Admit for observation
Paroxysmal atrial fibrillation.
-Patient with sinus bradycardia on recent hospitalization. Propranolol recently stopped. Now recurrent A-fib despite being off heart rates are reasonably controlled. I do not think he is having a lot of symptoms that are attributed to A-fib.
-Spontaneously converted to sinus rhythm on 05/05/2024
-Reviewed issues with patient regarding reinitiation of propranolol including reinitiating previous dose but ultimately we decided to use short acting propranolol 10 mg twice daily. Appears to be tolerating well
-[id number] -at least 4 (age greater than 75, hypertension and coronary artery disease)
-Continue anticoagulation with Eliquis
.
Coronary artery disease. History of LAD stenting 2017
- stable without angina
-Patient is on Eliquis and not on aspirin.
.
General sense of not feeling well. Suspect multifactorial.
-Continue to treatment of depression as directed by psychiatry
-Internal medicine/Dr. Arreguin doing additional evaluation for other medical causes of symptoms. Adrenal insufficiency assessment and progress
-Low TSH with normal T4 may be impacted by patient's prednisone use will need to be followed as outpatient
.
Hyponatremia. Recent hospitalization.
-Discharged last week after treatment. Sodium appears stable at 138
-If restarted on SSRI then we will need to continue to monitor closely.
.
Depression/anxiety additional management as directed by psychiatry
-Psychiatry consulted. Patient is currently being seen will await outcome of that assessment.
.
Abnormal TSH. Low TSH last admission. Patient on chronic prednisone
- Low TSH with normal T4 may be impacted by patient's prednisone use will need to be followed as outpatient
.
.
Rheumatoid arthritis
Patient on chronic prednisone.
-
Physical Exam
Vital Signs/Labs
Vital Signs
Temp Pulse Resp BP Pulse Ox
97.8 F 59 18 150/66 96
05/07/24 07:54 05/07/24 07:54 05/07/24 07:54 05/07/24 07:54 05/07/24 07:54
05/06/24 05/07/24 05/08/24
06:59 06:59 06:59
Actual Weight 82.055 kg
05/06/24 06:50
05/06/24 06:50
Magnesium 1.5 mg/dl (1.6-2.3) L 05/05/24 13:49
TSH 0.05 uIU/ml (0.47-4.68) L 05/05/24 13:49
Physical Exam
Constitutional: No acute distress
Cardiovascular: Rhythm & rate is regular
Respiratory: Respiratory effort normal
Data Reviewed
-
Date of Service: May 07, 2024
Medical Decision Making: Reviewed Test Results
Medical Tests (PFT, Pathology etc): Report Reviewed by me
Labs: Labs Reviewed by me
[2024-05-07] MEDS: XANAX 0.25 MG PO ×2 (10:40→17:00)
[2024-05-07] MEDS: ZYLOPRIM 300 MG PO (10:40)
[2024-05-07] MEDS: INDERAL 10 MG PO ×2 (10:40→21:39)
[2024-05-07] MEDS: LEXAPRO 5 MG PO (10:40)
[2024-05-07] MEDS: ATACAND 32 MG PO (10:40)
[2024-05-07] MEDS: ELIQUIS 5 MG PO ×2 (10:40→21:39)
[2024-05-07] MEDS: PROTONIX 40 MG PO (10:41)
[2024-05-07 11:14] LABS: ACTH Stim Cortisol 30 Min 7.4 ug/dl
[2024-05-07 11:49] LABS: ACTH Stim Cortisol 60 Min 10.5 ug/dl
--- NOTE | 2024-05-07 13:04 | CM ---
CM reviewed chart and no dc date noted
Swallow study today
Pt is current with [facility]
CM will continue to follow for dc planning
Discharge Disposition- anticipate home with [facility], follow ST recs
--- NOTE | 2024-05-07 13:41 | PTOTSP ---
Video Swallow Examination
Oral/pharyngeal swallow deemed within functional limits with no laryngeal penetration, or aspiration. No more than trace tongue base, vallecular and pyriform sinus coating due in part to impinging cervical osteophytes at C4-C7 and intermittent
cricopharyngeal prominence. Evidence of esophageal stasis with retrograde flow below level of PES also observed.
Recommend
1. Continue regular solids and thin liquids. Avoid overly dry dense solids.
2. Intersperse sip of liquid after every 2-3 bites of solid.
3. Rest breaks as needed when feeling sternal retention.
4. Smaller more frequent meals.
5. Remain upright for at least 30 minutes after meals.
6. Meds with liquid or as best tolerated.
--- NOTE | 2024-05-07 15:04 | CON.GI ---
Addendum entered and electronically signed by Mark Clark MD 05/07/24 17:18:
I saw and examined the patient.
The PA's note was reviewed and I agree with the note.
Comment:
83 year-old male with h/o PAF, CAD s/p LAD stent, HTN, depression/anxiety, RA, and GERD who p/w symptomatic afib. He recently was admitted for symptomatic hyponatremia. During this hospitalization, he reported chronic intermittent dysphagia.
Impression / Rec:
1. Dysphagia - he reports having this symptoms for years (> 5 years) without change/worsening of symptoms. Denies choking/coughing during initiation of swallow. His description of dysphagia is vague; denies janna esophageal dysphagia but more
like 'hesitancy to swallow'. Denies episode of food impaction. Had EGD by Dr. Fragoso around 2018 which was unremarkable. Last colonoscopy in 2022. Agree with PPI. ? esophageal spasm or rumination. Further eval can be elective; pt prefers to f/u
with Dr. Lugo, will arrange.
Original Note:
Consultation
-
Date/Time Consultation Requested: 05/07/24 1211
Date/Time Consultation Performed: 05/07/24 1400
Requesting Provider: Dr. Chapman
Performing Provider: Dr. Clark/STEFANIA Gomez
Reason for Consultation: intermittent dysphagia
Medical History
Chief Complaint / HPI
Chief Complaint: afib
History of Present Illness:
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 The patient states that he has been
having issues recently with depression and anxiety after being taken of Remeron and starting on Lexapro. He required admission for symptomatic hyponatremia. We are asked to evaluate for intermittent dysphagia. The patient states that when he went
through review of systems with internal medicine he did say yes to intermittent dysphagia although he states this has not been an issue for 6 months. He does admit that he would have intermittent issue with pills. Although this has not been the
case recently. He did have a video swallow with brief imaging of the thoracic esophagus demonstrating delayed esophageal emptying with reflux noting. Anterior osteophytes from C4-C6 causing impingement on the posterior esophagus without
obstruction. The patient does admit to making sure he cuts up his meat and make sure that he swallows correctly. He does not ever recall having to do a double swallow or make sure that he drinks water after to ensure it goes down. He did have 1
episode of a pill getting stuck years ago requiring an ER visit. This has not happened since. He does take omeprazole daily for gastroesophageal reflux. He has no breakthrough symptoms. He does state that since coming off of Remeron he has had
decreased appetite. He was also recently placed on Lexapro. Since that time he has noticed loose stools. He was also increased on his alprazolam. Since that time he has noticed that his bowel movements have improved. He denies any fevers,
chills, nausea, vomiting, melena, hematochezia, odynophagia, early satiety. He states that he does not necessarily have an appetite however he eats because he knows he supposed to.
Past Medical History
Past Medical History: Arrhythmias (aib), CAD, HTN, Hypercholesterolemia and Other (depression/anxiety, chronic back pain,nephrolithiasis, neuropathy, RA, GERD, Gout, hyponatremia)
Past Surgical History: Appendectomy and Cardiac (stent LAD, left ankle surgery, right bicep repeair, lumbar laminectomy, trigger fiber repair, left hernia repair tonsillectomy, intussuception x 2 as a child, hemorrhoids, cataracts)
Social History
Tobacco: Former Smoker
Alcohol: Occasional (3 shots a week)
Drug: None
Personal:
Living: Alone
Employment: Retired
Family History
Family History: Other (no family hx of GI malignancy or IBD)
Allergies / Home Medications
Allergy/AdvReac Type Severity Reaction Status Date / Time
carvedilol Allergy Unknown Unknown Verified 05/05/24 13:48
meperidine [From Demerol] Allergy Unknown Unknown Verified 05/05/24 13:48
methotrexate Allergy Unknown Unknown Verified 05/05/24 13:48
atorvastatin calcium Allergy myalgias Verified 05/05/24 13:48
[From Lipitor]
lisinopril Allergy COUGH Verified 05/05/24 13:48
meperidine HCl [From Demerol] Allergy Nausea Verified 05/05/24 13:48
mirtazapine Allergy SLEEP Verified 05/05/24 17:34
DEPRIVATION
AND
INCREASE
IN ANXIETY
piroxicam [From Feldene] Allergy Gastritis Verified 05/05/24 13:48
simvastatin [From Zocor] Allergy myalgias Verified 05/05/24 13:48
�Medication �Instructions �Recorded
prednisone 10 mg tablet 5 mg PO HS Anti-inflammatory 03/12/20
tamsulosin 0.4 mg capsule (Flomax) 0.8 mg PO HS Urinary issue 09/07/20
allopurinol 300 mg tablet 300 mg PO DAILY Gout 01/05/21
rosuvastatin 5 mg tablet 5 mg PO HS High cholesterol 01/05/21
apixaban 5 mg tablet (Eliquis) 5 mg PO BID Blood clot 01/30/21
prevention/tx ##0
omeprazole 20 mg tablet,delayed 20 mg PO DAILY Gastrointestinal 01/08/24
release Issue
alprazolam 0.25 mg tablet 0.25 mg PO BID 05/02/24
candesartan 32 mg tablet 32 mg PO DAILY 30 days #30 tabs 05/02/24
acetaminophen 650 mg 1,300 mg PO [id number] PRN headaches 05/05/24
tablet,extended release
alprazolam 0.5 mg disintegrating 0.5 mg PO HS 05/05/24
tablet
escitalopram oxalate 5 mg tablet 5 mg PO DAILY 05/05/24
(Lexapro)
propranolol 20 mg tablet 20 mg PO BIDPRN PRN a fib 05/05/24
propranolol 60 mg capsule,24 60 mg PO DAILY 05/05/24
hr,extended release
Review of Systems
-
All other systems: A 12 pt ROS was Negative except as stated above in HPI
Vital Signs
Temp Pulse Resp BP Pulse Ox
98.7 F 59 17 150/66 96
05/07/24 11:30 05/07/24 07:54 05/07/24 11:30 05/07/24 07:54 05/07/24 11:30
Physical Exam
Exam
General: No Apparent Distress
HEENT: Anicteric
Respiratory: Clear
Cardiac: Regular Rhythm
GI: Soft, Non Tender, Non Distended and Normal Bowel Sounds
Skin: Warm and Dry
Neuro: AO x 3
Psych: Calm
Results
WBC 6.1 10^3/uL (4.8-10.8) 05/06/24 06:50
Hgb 12.7 g/dL (13.0-18.0) L 05/06/24 06:50
Hct 38.5 % (39.0-52.0) L 05/06/24 06:50
MCV 91.7 fL (80.0-94.0) 05/06/24 06:50
Plt Count 167 10^3/uL (130-400) 05/06/24 06:50
Absolute Neuts (auto) 4.0 10^3/uL (1.4-6.5) 05/06/24 06:50
Sodium 137 mmol/L (135-145) 05/06/24 06:50
Potassium 4.0 mmol/L (3.5-5.1) 05/06/24 06:50
Chloride 102 mmol/L (98-107) 05/06/24 06:50
Carbon Dioxide 25 mmol/L (22-30) 05/06/24 06:50
BUN 20 mg/dl (9-20) 05/06/24 06:50
Creatinine 0.8 mg/dL (0.7-1.3) 05/06/24 06:50
Calcium 9.1 mg/dl (8.4-10.2) 05/06/24 06:50
Total Bilirubin 0.7 mg/dl (0.2-1.3) 05/05/24 13:49
AST 23 U/L (17-59) 05/05/24 13:49
ALT 22 U/L (0-50) 05/05/24 13:49
Alkaline Phosphatase 31 U/L (38-126) L 05/05/24 13:49
Diagnostic Image Results:
RF Video [place] Exam 05/07/24:
Findings: Brief imaging of the thoracic esophagus demonstrates delayed esophageal emptying with reflux noted. There are anterior osteophytes from C4 through C6 causing impingement on the posterior esophagus without obstruction.
Thin liquid barium by spoon, single sip and consecutive sips by cup: No penetration or airway aspiration
[place] consistency barium by spoon, single sip and consecutive sips by cup: No penetration or airway aspiration
Honey consistency and pudding consistency barium by spoon: No penetration or airway aspiration
Solid barium by cookie: No penetration or airway aspiration
Impression: No fluoroscopic evidence for airway aspiration Detailed findings as described above.
Prior GI Procedures:
EGD: 03/10/2008 ([facility]) - Z-line regular, 39 cm from the incisors. Biopsied.
- Chronic gastritis. Biopsied.
- Normal third portion of the duodenum. Biopsied.
Colonoscopy: 08/31/22 ([facility]) - Diverticulosis in the sigmoid colon.
- One 2 mm polyp in the mid sigmoid colon, removed
with a jumbo cold forceps. Resected and retrieved.
- One 3 mm polyp in the mid ascending colon, removed
with a cold biopsy forceps. Resected and retrieved.
- The examination was otherwise normal.
Colonoscopy 03/10/2018 ([facility]) - Hemorrhoids found on perianal exam.
- Diverticulosis in the sigmoid colon.
- One 2 mm polyp in the mid transverse colon, removed
with a cold biopsy forceps. Resected and retrieved.
- The examination was otherwise normal.
Assessment / Plan
-
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 The patient states that he has been
having issues recently with depression and anxiety after being taken of Remeron and starting on Lexapro. He required admission for symptomatic hyponatremia. We are asked to evaluate for intermittent dysphagia. The patient states that when he went
through review of systems with internal medicine he did say yes to intermittent dysphagia although he states this has not been an issue for 6 months.
Impression:
Intermittent sensation of dysphagia. No true dysphagia per patient.
GERD
Possible esophageal spasm
Poor appetite, patient with removal of Remeron recently
Loose stools-> improved with continuation of Lexapro plus alprazolam
Depression and anxiety
A-fib on Eliquis
Plan:
Continue omeprazole
Discussed possibly adding fiber for bulking
Make sure to eat small frequent meals, watch weight to ensure no weight loss
Further recommendations to be forthcoming
-
-
Thank you for consultation and allowing me to participate in the patient's care. Please call the steam distribution supervisor GI physician during the after hours with any questions or concerns.
--- NOTE | 2024-05-07 17:00 | W.PN.HOSP.TC ---
Today's Communication/Plan
-
See plan
Assessment / Plan
Assessment / Plan
Impression:
Paroxysmal atrial fibrillation
CAD.
Benign hypertension
Recent episode of hyponatremia while on HCTZ.
Clinical depression/anxiety.
Chronic polyarthritis on steroid maintenance.
Epigastric discomfort, occasional
Plan:
Paroxysmal atrial fibrillation.
Currently in sinus rhythm.
Recent bradycardia
Rate controlled with reintroduction of lower dose of propranolol 10 mg twice daily
CAD.
History of PCI to LAD
Stable.
Continue beta-rosalinda
Essential hypertension
Continue propranolol and candesartan. Monitor blood pressure trend.
Recent episode of hyponatremia while on HCTZ and with low oral intake and less likely related to initiation of SSRI. Sodium level stable.
Clinical depression/anxiety
Reintroduced to Lexapro at the lower dose. Monitor closely.
Continue outpatient follow-up with psychiatry.
Suppressed TSH with normal free T4 likely secondary to chronic prednisone therapy.
Clinically euthyroid.
Outpatient follow-up with TFT and endocrinology.
Low cortisol level at the baseline and also suppressed response at this time test again likely skewed by chronic prednisone therapy.
Clinically low suspicion for adrenal insufficiency.
Discussed with endocrinology. Outpatient follow-up will be arranged
Dysphagia with occasional epigastric discomfort.
VSE today with no abnormalities in the oropharyngeal phase with delayed passage in the distal esophagus.
Will consult GI for further evaluation
Anticipated Discharge: 24 - 48 hours
Subjective/Interval History
-
Date of Service: May 07, 2024
Objective Data
-
Vital Signs:
Vital Signs
Temp Pulse Resp BP Pulse Ox
98.3 F 55 17 130/56 96
05/07/24 15:15 05/07/24 15:15 05/07/24 15:15 05/07/24 15:15 05/07/24 15:15
I&O
05/06/24 05/07/24 05/08/24
06:59 06:59 06:59
Intake Total 360 / 360 1080 / 1080
Balance 360 / 360 1080 / 1080
Physical Exam
-
General: Well Developed, Well Nourished, No Apparent Distress, Comfortable, Conversant and Slurred Speech (mild); Negative Respiratory Distress
HEENT: Normocephalic, Atraumatic, Nose Appears Normal and Ears Appear Normal; Negative Oxygen
Respiratory: Clear to Auscultation and Non Labored Respirations; Negative Accessory Resp Muscle Use
Cardiac: Regular Rhythm and S1/S2
GI: Soft, Nontender, Nondistended and Normal Bowel Sounds
Skin: Warm and Dry
Neuro: Awake, Alert, Oriented and AO x 3
Psych: Calm and Intact Judgement/Insight
--- NOTE | 2024-05-07 17:40 | W.PN.UPDATE ---
Update Note
Progress Note Update
Pt seen, sitting up in chair, in no distress. Pt alert, oriented, affect full and appropriate. Mood dysphoric and mildly anxious. Pt reports he worries more when alone at home in the evenings/nights, due to his age and health issues. Pt
tolerating Lexapro, states he would like to continue with it since he has been on it for almost 2 weeks, except for the couple days interruption. Pt is concerned about whether his outpatient psychiatrist will agree with this plan. Pt was restarted
on lower dose of immediate-release propranolol 10 mg BID, which can also help with anxiety. Pt reports he is limited in his ability to walk for exercise due to back problems. Sodium was okay yesterday, no electrolytes drawn today.
Imp: Depressive d/o, R/o MDD, single episode
Unspecified anxiety
Rec: Continue trial of Lexapro, monitoring Sodium level. Any alternative antidepressant would also carry a small risk of hyponatremia
Continue current dose of Xanax- daytime doses were added almost 2 weeks ago- shows no apparent side effects
Return to Outpatient psychiatric treatment when medically stable
Will follow
[2024-05-07] MEDS: XANAX 0.5 MG PO (21:40)
[2024-05-07] MEDS: CRESTOR 5 MG PO (21:40)
[2024-05-07] MEDS: DELTASONE 5 MG PO (21:40)
[2024-05-07] MEDS: FLOMAX 0.8 MG PO (21:40)
[2024-05-08 03:47] VITALS: BP 130/67
[2024-05-08 07:00] VITALS: BP 131/70; BP 133/61; BP 138/71; PULSE 51; PULSE 63; PULSE 65
[2024-05-08 07:17] LABS: Blood Urea Nitrogen 17 mg/dl (9-20); Calcium 9.1 mg/dl (8.4-10.2); Carbon Dioxide 26 mmol/L (22-30); Chloride 102 mmol/L (98-107); Estimated Creatinine Clearance 62 ml/min; Glucose 127 mg/dl (70-99); Potassium 4.3 mmol/L (3.5-5.1); Sodium 137 mmol/L (135-145); eGFR > 60.00
[2024-05-08] MEDS: XANAX PO ×2 (10:30→10:38)
[2024-05-08] MEDS: ZYLOPRIM 300 MG PO (10:37)
[2024-05-08] MEDS: TYLENOL 650 MG PO ×3 (10:37→22:45)
[2024-05-08] MEDS: LEXAPRO 5 MG PO (10:38)
[2024-05-08] MEDS: INDERAL 10 MG PO ×2 (10:38→20:41)
[2024-05-08] MEDS: ELIQUIS 5 MG PO ×2 (10:38→20:41)
[2024-05-08] MEDS: ATACAND 32 MG PO (10:38)
[2024-05-08] MEDS: PROTONIX 40 MG PO (10:38)
[2024-05-08 11:00] VITALS: BP 113/52
--- NOTE | 2024-05-08 11:43 | W.PN.UPDATE ---
Update Note
Progress Note Update
Patient seen at bedside, chart reviewed, discussed with Hospitalist. 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 He has been getting a lot of visitor which appears to have lifted his mood. He does tell me he is very concerned his OP Psychiatrist
will force him to come off of Lexapro related to the hyponatremia. Na has been stable now for almost a week. He is no longer taking HCTZ which was more likely the culprit, especially give he had only 2 doses of Lexapro when the hyponatremia
presented. He does not want to waste the 2 weeks he has been taking Lexapro knowing it could take up to 6 weeks to begin to feel it's benefit. He does feel it has already made some difference in his mood. He has previously been prescribed
Mirtazapine which is discontinued for reported akathisia. We discuss that many (if not all) of the comparative alternatives could equally have effect on sodium.
Impression/Recommendations: Depressive disorder with an anxiety component, to rule out R/O Major Depressive Disorder - follows with Dr. Rodrigez as OP, I will attempt to reach him to discuss Dr. Berkowitz's concerns. For now, continue Lexapro while
closely monitoring Na level. Continue current dose of Xanax. Plan to return to OP provider one medically stable for discharge.
--- NOTE | 2024-05-08 12:37 | W.PN.CD ---
Today's Communication / Plan
-
Await GI cosult
PAF stable . Stable. Remains in sinus rhythm. Tolerating low-dose propranolol. Heart rates in the 60s while awake and sometimes in the 50s only in the 40s at night with no long pauses. Continue current dosing continue Eliquis as prescribed
follow-up with Dr. Huang
Depression. Mood a bit better than when he first came in he is back on SSRI management directed by psychiatry
-Monitor sodium
Hyponatremia. Noted on hospitalization last week has been stable since admission we will continue to follow-up labs in 1 week and then again in 3 weeks
Endocrinology follow-up with Dr. Cohn to follow-up on Cortrosyn stim test and patient who is on chronic steroids and also follow-up on low TSH with normal T4
GI await outcome of consultation. If no additional inpatient care required then would consider discharge today
Patient will also follow-up with PCP Dr. Olguin who I did speak with today
Impression / Plan
-
Admit for observation
Paroxysmal atrial fibrillation.
-Patient with sinus bradycardia on recent hospitalization. Propranolol recently stopped. Now recurrent A-fib despite being off heart rates are reasonably controlled. I do not think he is having a lot of symptoms that are attributed to A-fib.
-Spontaneously converted to sinus rhythm on 05/05/2024
-Reviewed issues with patient regarding reinitiation of propranolol including reinitiating previous dose but ultimately we decided to use short acting propranolol 10 mg twice daily. Appears to be tolerating well
-[id number] -at least 4 (age greater than 75, hypertension and coronary artery disease)
-Continue anticoagulation with Eliquis
.
Coronary artery disease. History of LAD stenting 2017
- stable without angina
-Patient is on Eliquis and not on aspirin.
.
General sense of not feeling well. Suspect multifactorial but primary utility driver is depression. Mood improved and condition stable. continue curren therapy
-Continue to treatment of depression as directed by psychiatry
.
Hyponatremia. Recent hospitalization.
-Discharged last week after treatment. Sodium appears stable at 138
-If restarted on SSRI then we will need to continue to monitor closely.
.
Depression/anxiety additional management as directed by psychiatry
-Psychiatry consulted. Patient is currently being seen will await outcome of that assessment.
.
Abnormal TSH. Low TSH last admission. Patient on chronic prednisone
- Low TSH with normal T4 may be impacted by patient's prednisone use will need to be followed as outpatient
Abnormal cortosyn stim test. may be impacted by chronic low dose prdnisne.
follo w up with endocrinology for this and for TSH
.
.
Rheumatoid arthritis
Patient on chronic prednisone.
-
Physical Exam
Vital Signs/Labs
Vital Signs
Temp Pulse Resp BP Pulse Ox
97.8 F 57 18 113/52 96
05/08/24 11:00 05/08/24 11:00 05/08/24 11:00 05/08/24 11:00 05/08/24 11:00
05/06/24 06:50
05/08/24 05:03
Magnesium 1.5 mg/dl (1.6-2.3) L 05/05/24 13:49
TSH 0.05 uIU/ml (0.47-4.68) L 05/05/24 13:49
Physical Exam
Constitutional: No acute distress
Cardiovascular: Rhythm & rate is regular
Respiratory: Respiratory effort normal
GI: Soft
Neuro/Psych: Alert
Data Reviewed
-
Date of Service: May 08, 2024
Medical Decision Making: Reviewed Test Results
EKG: Report Reviewed by me
Medical Tests (PFT, Pathology etc): Report Reviewed by me
Labs: Labs Reviewed by me
--- NOTE | 2024-05-08 13:09 | W.DS.TRANS ---
Addendum entered and electronically signed by STEFANIA Dunn 05/08/24 16:03:
New medication Benefiber 1 tablespoon in 8 ounces daily
Original Note:
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
-
Discharge Instructions:
Discharge Diagnosis/Procedures Paroxysmal atrial fibrillation
Dysphagia with epigastric discomfort
Diet Low Cholesterol
Activity As tolerated
Driving Restrictions As prior to admission
Bathing Restrictions None
Instructions:
Stand-Alone Forms:
Changes to Home Medications: Yes
Discharge Medications:
DC Medications w/original date entered in [facility]
prednisone 10 mg tablet 5 mg PO HS Anti-inflammatory 03/12/20
tamsulosin 0.4 mg capsule (Flomax) 0.8 mg PO HS Urinary issue 09/07/20
allopurinol 300 mg tablet 300 mg PO DAILY Gout 01/05/21
rosuvastatin 5 mg tablet 5 mg PO HS High cholesterol 01/05/21
apixaban 5 mg tablet (Eliquis) 5 mg PO BID Blood clot prevention/tx ##0 01/30/21
omeprazole 20 mg tablet,delayed release 20 mg PO DAILY Gastrointestinal Issue 01/08/24
alprazolam 0.25 mg tablet 0.25 mg PO BID 05/02/24
candesartan 32 mg tablet 32 mg PO DAILY 30 days #30 tabs 05/02/24
acetaminophen 650 mg tablet,extended release 1,300 mg PO [id number] PRN headaches 05/05/24
escitalopram oxalate 5 mg tablet (Lexapro) 5 mg PO DAILY 05/05/24
alprazolam 0.5 mg disintegrating tablet 0.5 mg PO HS #1 tab 05/08/24
propranolol 10 mg tablet 10 mg PO BID #60 tabs 05/08/24
Home Medication Changes
Propranolol 60 mg extended release discontinued and propranolol 20 mg twice daily as needed were discontinued
New medication propranolol 10 mg twice daily
Pending Results: No
--- NOTE | 2024-05-08 13:33 | CM ---
Reviewed the chart notes and spoke with the patient at the bedside. IMM reviewed, signed, and placed on chart. The patient anticipates being discharged to home with resumption of VN services. Niru at [facility] contacted regarding companions.
Per Niru, they are currently arranged for Tuesday and Tuesday. CM continues to be available to patient/family and is monitoring medical plan for needs at discharge.
Plan: Discharge to home with VN services.
[2024-05-08] MEDS: XANAX 0.25 MG PO (14:19)
[2024-05-08 15:00] VITALS: BP 131/69
--- NOTE | 2024-05-08 15:33 | W.PN.HOSP.TC ---
Today's Communication/Plan
-
Discharge planning.
Outpatient follow-up with gastroenterology and endocrinology set up
Assessment / Plan
Assessment / Plan
Impression:
Paroxysmal atrial fibrillation
CAD.
Benign hypertension
Recent episode of hyponatremia while on HCTZ.
Clinical depression/anxiety.
Chronic polyarthritis on steroid maintenance.
Epigastric discomfort, occasional
Plan:
Paroxysmal atrial fibrillation.
Currently in sinus rhythm.
Recent bradycardia
Rate controlled with reintroduction of lower dose of propranolol 10 mg twice daily
CAD.
History of PCI to LAD
Stable.
Continue beta-rosalinda
Essential hypertension
Continue propranolol and candesartan. Monitor blood pressure trend.
Recent episode of hyponatremia while on HCTZ and with low oral intake and less likely related to initiation of SSRI. Sodium level stable.
Clinical depression/anxiety
Reintroduced to Lexapro at the lower dose. Monitor closely.
Continue outpatient follow-up with psychiatry.
Suppressed TSH with normal free T4 likely secondary to chronic prednisone therapy.
Clinically euthyroid.
Outpatient follow-up with TFT and endocrinology.
Low cortisol level at the baseline and also suppressed response at this time test again likely skewed by chronic prednisone therapy.
Clinically low suspicion for adrenal insufficiency.
Discussed with endocrinology. Outpatient follow-up will be arranged
Dysphagia with occasional epigastric discomfort. Chronic. With low clinical suspicion for distal esophageal dysfunction/mechanical obstruction.
VSE today with no abnormalities in the oropharyngeal phase with delayed passage in the distal esophagus.
Gastroenterology input appreciated
Patient will be scheduled for outpatient follow-up.
Anticipated Discharge: Today
Subjective/Interval History
-
Date of Service: May 08, 2024
Objective Data
-
Labs:
Laboratory Results
05/08/24
05:03
Sodium 137
Potassium 4.3
Chloride 102
Carbon Dioxide 26
BUN 17
Creatinine 0.9
Glucose 127 H
Calcium 9.1
Vital Signs:
Vital Signs
Temp Pulse Resp BP Pulse Ox
97.8 F 57 18 113/52 96
05/08/24 11:00 05/08/24 11:00 05/08/24 11:00 05/08/24 11:00 05/08/24 11:00
I&O
05/07/24 05/08/24 05/09/24
06:59 06:59 06:59
Intake Total 1080 / 1080 1320 / 1320
Balance 1080 / 1080 1320 / 1320
Physical Exam
-
General: Well Developed, Well Nourished, No Apparent Distress, Comfortable, Conversant and Slurred Speech (mild); Negative Respiratory Distress
HEENT: Normocephalic, Atraumatic, Nose Appears Normal and Ears Appear Normal; Negative Oxygen
Respiratory: Clear to Auscultation and Non Labored Respirations; Negative Accessory Resp Muscle Use
Cardiac: Regular Rhythm and S1/S2
GI: Soft, Nontender, Nondistended and Normal Bowel Sounds
Skin: Warm and Dry
Neuro: Awake, Alert, Oriented and AO x 3
Psych: Calm and Intact Judgement/Insight
--- NOTE | 2024-05-08 15:53 | W.PN.GI.CBS2 ---
Today's Communication / Plan
-
Benefiber one tablespoon in 8oz fluid daily basis
Will arrange OP FU with myself.
GI will sign off please call for questions
Assessment / Plan
-
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 The patient states that he has been
having issues recently with depression and anxiety after being taken of Remeron and starting on Lexapro. He required admission for symptomatic hyponatremia. We are asked to evaluate for intermittent dysphagia. The patient states that when he went
through review of systems with internal medicine he did say yes to intermittent dysphagia although he states this has not been an issue for 6 months.
Impression:
Fecal urgency and bowel erratic habits
Suspect IBS-C and pelvic floor dysfunction
Rare dysphagia
GERD
Poor appetite, patient with removal of Remeron recently
Loose stools-> improved with continuation of Lexapro plus alprazolam
Depression and anxiety
A-fib on Eliquis
Plan:
Continue omeprazole
Recommend OTC benefiber one tablespoon daily basis. Instructions on how to use described
I will arrange OP FU with myself. We discussed options of anal rectal manometry or defecography if needed then
Tolerating regular diet
Ok from GI perspective for hosp d/c Please call for questions.
Subjective
Subjective
Date of Service: May 08, 2024
He ate 100% of lunch without issue. Dysphagia/esophageal spasm is rare. There is some fecal urgency and irritable bowels started 2 yrs ago when he went through divorce with his of 43 years.
Objective
Data Reviewed
Laboratory Data:
Laboratory Results
05/06/24 06:50
05/08/24 05:03
Laboratory Results
Phosphorus 3.4 mg/dl (2.5-4.5) 05/06/24 06:50
Magnesium 1.5 mg/dl (1.6-2.3) L 05/05/24 13:49
Total Bilirubin 0.7 mg/dl (0.2-1.3) 05/05/24 13:49
AST 23 U/L (17-59) 05/05/24 13:49
ALT 22 U/L (0-50) 05/05/24 13:49
Alkaline Phosphatase 31 U/L (38-126) L 05/05/24 13:49
Vital Signs and I&O:
Vital Signs
Temp Pulse Resp BP Pulse Ox
97.8 F 57 18 113/52 96
05/08/24 11:00 05/08/24 11:00 05/08/24 11:00 05/08/24 11:00 05/08/24 11:00
I&O
05/07/24 05/08/24 05/09/24
06:59 06:59 06:59
Intake Total 1080 / 1080 1320 / 1320
Balance 1080 / 1080 1320 / 1320
Physical Exam
Physical Exam
GEN: No acute distress, conversant, pleasant
HEENT: anicteric, extraocular movements intact, clear oropharynx without exudates
GI: soft, non-distended, not tender to palpation, normal active bowel sounds, no hepatosplenomegaly
EXT: warm, well perfused, no edema bilaterally
NEURO: AAOx3, non-focal
[2024-05-08] MEDS: METAMUCIL, KONSYL 1 PACKET PO (18:02)
[2024-05-08 19:52] VITALS: BP 126/56; BP 145/71; BP 150/66; PULSE 56; PULSE 59; PULSE 64
[2024-05-08] MEDS: DELTASONE 5 MG PO (20:50)
[2024-05-08] MEDS: FLOMAX 0.8 MG PO (20:50)
[2024-05-08] MEDS: CRESTOR 5 MG PO (20:50)
[2024-05-08] MEDS: XANAX 0.5 MG PO (21:55)
[2024-05-08 23:10] VITALS: BP 144/72
[2024-05-09 03:00] VITALS: BP 136/60
--- NOTE | 2024-05-09 04:01 | DOWNTIME ---
There was a [employer] Downtime on 05/09/2024 from 0100 to 05/09/2024 at 0355. Downtime documentation of patient's care, including medication administrations, has been reconciled in the electronic record per guidelines. Refer to the
patient's paper chart under the miscellaneous tab to see printed paper medication records and downtime forms.
[2024-05-09] MEDS: TYLENOL 650 MG PO (06:32)
[2024-05-09 07:50] VITALS: BP 154/84
[2024-05-09 08:00] VITALS: BP 128/68; BP 142/72; BP 156/74; PULSE 56; PULSE 58; PULSE 60
[2024-05-09] MEDS: PROTONIX 40 MG PO (08:31)
[2024-05-09] MEDS: ZYLOPRIM 300 MG PO (08:31)
[2024-05-09] MEDS: INDERAL 10 MG PO (08:31)
[2024-05-09] MEDS: ELIQUIS 5 MG PO (08:31)
[2024-05-09] MEDS: ATACAND 32 MG PO (08:31)
[2024-05-09] MEDS: LEXAPRO 5 MG PO (08:31)
[2024-05-09] MEDS: XANAX 0.25 MG PO (08:31)
[2024-05-09] MEDS: METAMUCIL, KONSYL 1 PACKET PO (08:32)
--- NOTE | 2024-05-09 09:31 | CM ---
Reviewed the chart notes. Patient was for possible discharge to home yesterday. continues to be available to patient/family and is monitoring medical plan for needs at discharge.
Plan: [facility]charge [facility].
[2024-05-09 09:58] VITALS: BP 142/72
--- NOTE | 2024-05-09 11:25 | W.PN.UPDATE ---
Update Note
Progress Note Update
Pt seen, examined, chart reviewed. Over 45 min spent with pt reviewing all issues: HTN, mild orthostasis, significant depression, asymptomatic nocturnal bradycardia, PAF, recent hyponatremia, low cortisol/low response to ACTH most c/w with chronic
prednisone and not adrenal insuf., I suggested he discuss ECT (eltroconvulsive therapy) with his psychiatrist and PCP. I spoke with his PCP. Ready for home. No driving restrictions. Needs to be more active and exercise.
== END 2024-05-09 14:02 | disposition home health service (06) | DRG 881 ==
LOC: 2 SOUTH 16:08
PROVIDERS: ADMITTING PHYSICIAN Internal Medicine Cardiovascular Disease; CONSULT PHYSICIAN Internal Medicine Gastroenterology; EMERGENCY PHYSICIAN Emergency Medicine; FAMILY PHYSICIAN Internal Medicine; OTHER PHYSICIAN Internal Medicine; OTHER PHYSICIAN Psychiatry & Neurology Psychiatry
DX: F32.A Depression, unspecified (principal); I48.0 Paroxysmal atrial fibrillation; Z79.01 Long term (current) use of anticoagulants; I25.10 Atherosclerotic heart disease of native coronary artery without angina pectoris; K21.9 Gastro-esophageal reflux disease without esophagitis; I10 Essential (primary) hypertension; E78.5 Hyperlipidemia, unspecified; M06.9 Rheumatoid arthritis, unspecified; F41.9 Anxiety disorder, unspecified
CPT/HCPCS: 74230; 80048; 80053; 80069; 81003; 81015; 82533; 83735; 84436; 84443; 85025; 92610; 92611; 93005; 96360; 99284

== ENCOUNTER 2024-08-12 10:15 | Emergency (ER) | payer OTHER, SELFPAY ==
[2024-08-12 10:20] VITALS: BP 129/74
--- NOTE | 2024-08-12 10:31 | ED.GENMED ---
History of Present Illness
General
Chief Complaint: Fall
Source: patient
Time Seen by Provider: 08/12/24 10:24
History of Present Illness
History of Present Illness:
83-year-old male with extensive cardiopulmonary past medical history presenting to the emergency department for evaluation of right shoulder pain and decreased range of motion after an accidental fall yesterday stating he was attempting to get into
his car, had open the car door and with his right arm was holding the steering wheel, slipped and fell down onto his knees, and attempt to not fall had grabbed onto the steering wheel and was trying to hold himself upright. Patient states that
yesterday he had pain and decreased range of motion to the right shoulder, today still had pain and somewhat decreased range of motion although noting his range of motion today is better patient is anticoagulated however he states no head injury,
LOC, no vomiting. He denies any other extremity related pain.
Past History
Past History
ED Past Medical History: Arrthythmia (Atrial fib), CAD, GERD, HTN, Hypercholesterolemia, [place], Psychiatric (Anxiety, Depression) and Other (pancreatitis, Back pain, Neuropathy, Numbness and tingling arm and legs, cardiomyopathy, IBS, H-pylori, Renal
calculus, GOUT, Giant cell arteritis, )
ED Past Surgical History: Appendectomy, Cardiac (LAD stent), Orthopedic (Left ankle surgery. Left fibula surgery, Right bicep repair, Right trigger finger, Lumbar laminectomy, ), Tonsilectomy (Adenoids), Urological (Lithotripsy) and Other (
intussusception x2 as a child, Hemorrhoids, cataracts, Left hernia repair, )
Social History
Tobacco: Non-smoker
Alcohol: Occasional
Drug: None
Personal:
Living: assisted living
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
Family History
Family History: Hypertension
Review of Systems
Review of Systems
All Other Systems: ROS reviewed and negative except as documented in HPI and ROS
Phy Exam
Physical Exam
Physical Exam:
GENERAL: Alert , in no apparent distress
EYE: conjunctiva clear
Head: Normocephalic atraumatic
NECK: Supple,
ENT: mmm.
LUNGS: no acute respiratory distress
NEUROLOGICAL: Alert and oriented
SKIN: Warm and dry, skin intact.
MUSCULOSKELETAL: Right Upper Extremity: No obvious deformity, erythema, edema, ecchymosis, abrasions or lacerations. Patient allows for full active and passive range of motion although does note discomfort with internal rotation and extension.
Easily palpable radial pulse. Remainder of extremity is warm well-perfused and has full range of motion without pain.
PSYCH: Normal and appropriate interaction.
Scores
Heart Failure Risk
Heart Failure Risk Score: Not Applicable
Heart Score for Chest Pain Patients
STEMI patient?: Not applicable
Withdrawal Assessment of Alcohol
Withdrawal Assessment Completed?: Not applicable
Course
Orders/Labs/Results
Orders:
Orders
08/12/24 10:30
CR Shoulder, Trauma - Right Urgent
Comment:
Reason For Exam: fall, shoulder injury, decreased ROM
Vital Signs
Initial and Last Documented VS:
Initial Vital Signs
Temp Pulse Resp BP Pulse Ox
97.6 F 65 18 129/74 98
08/12/24 10:20 08/12/24 10:20 08/12/24 10:20 08/12/24 10:20 08/12/24 10:20
Last Documented Vital Signs
Temp Pulse Resp BP Pulse Ox
97.6 F 78 18 121/70 98
08/12/24 10:20 08/12/24 12:10 08/12/24 12:10 08/12/24 12:10 08/12/24 12:10
MDM/Problems Addressed
Differential Diagnosis Includes:
Based off mechanism and range of motion I am less suspicious for fracture or dislocation however will obtain an x-ray. Possible rotator cuff injury versus tendinopathy versus strain
MDM/Problems Addressed:
83-year-old male presenting to the emergency department for evaluation of right shoulder pain following an accidental fall. Patient states no direct injury to the shoulder but felt a pulling sensation and had decreased range of motion following the
fall. Range of motion a little bit improved today. Patient states no head injury. He fell onto his knees. No headache or neurologic symptoms. Will forego head CT. Patient stating he merely wanted to come to the ER to obtain x-ray so he can
follow-up with orthopedist.
Chronic conditions affecting care: Arrhythmia
*Radiology
Radiology exam reviewed: preliminary read by ED provider
*Pulse Oximetry
Patient hypoxic: no
*Critical Care Note
Total Time (30-74mins, 75-104mins- exclusive of procedures): Not Applicable
Patient Management
Escalation/DeEscalation of care consider admission/obs:
X-ray shows degenerative changes. Advised NSAIDs/Tylenol as needed for pain. Follow-up with orthopedics as needed. Aware of return precautions.
ED Attending Note
-
Portions of this chart may have been created with voice recognition software.� Occasional wrong word or��sound alike� substitutions may have occurred due to the inherent limitations of voice recognition software.
Discharge Plan
Departure
Patient Disposition: Home (Routine Discharge)
Date of Disposition: 08/12/24
Time of Disposition: 11:44
Patient with high blood pressure during this ER visit?: No
Discharge Problem:
Right shoulder pain
Instructions: Shoulder pain - ED discharge instructions
Prescriptions:
No Action
prednisone 10 MG tablet
5 mg PO HS
tamsulosin [Flomax] 0.4 MG capsule
0.8 mg PO HS
allopurinol 300 MG tablet
300 mg PO DAILY
rosuvastatin 5 MG tablet
5 mg PO HS
Eliquis 5 MG tablet
5 mg PO BID Qty: 0 0RF
omeprazole 20 mg Tablet,Delayed Release (Dr/Ec)
20 mg PO DAILY
candesartan 32 mg tablet
32 mg PO DAILY 30 Days Qty: 30 0RF
alprazolam 0.25 mg Tablet
0.25 mg PO BID
acetaminophen 650 mg Tablet Extended Release
1,300 mg PO [id number] PRN (Reason: headaches)
escitalopram oxalate [Lexapro] 5 mg Tablet
5 mg PO DAILY
propranolol 10 mg Tablet
10 mg PO BID Qty: 60 1RF
alprazolam 0.5 mg Tablet,Disintegrating
0.5 mg PO HS Qty: 1 0RF
Rx Instructions:
0.25mg BID & 0.5mg HS
Benefiber Clear SF (dextrin) 3 gram/3.5 gram powder in packet
1 packet PO DAILY Qty: 28 0RF
Rx Instructions:
1 tablespoon in 8oz of water daily
Referrals:
Ej Jimenez MD [Active] - (Ortho - Call for appointment)
Elroy Olguin MD [Family Provider] -
Interventions
Interventions:
*Risk Screen - Suicide Last Done: 08/12/24 10:20
*General Assessment Last Done: 08/12/24 10:20
*Neglect/Abuse Screening Last Done: 08/12/24 10:20
ED- Fall Risk Assessment Last Done: 08/12/24 12:10
*ED COVID-19 Vaccine History Last Done: 08/12/24 12:10
*Nursing Disposition Last Done: 08/12/24 12:11
ED-Musculoskeletal Assessment Last Done: 08/12/24 12:10
ED- Neurological Assessment Last Done: 08/12/24 12:10
ED-Skin Assessment Last Done: 08/12/24 12:11
Discharge Date and Time
Discharge Date/Time: 08/12/24 12:12
Print Language: DANISH
[2024-08-12 12:10] VITALS: BP 121/70
== END 2024-08-12 12:12 | disposition home or self-care (01) ==
LOC: EMR 10:15
PROVIDERS: EMERGENCY PHYSICIAN Student in an Organized Health Care Education/Training Program; FAMILY PHYSICIAN Internal Medicine
DX: M25.511 Pain in right shoulder (principal); W01.0XXA Fall on same level from slipping, tripping and stumbling without subsequent striking against object, initial encounter
CPT/HCPCS: 99283; 73030

== ENCOUNTER 2024-09-17 11:48 | Emergency (ER) | payer OTHER, SELFPAY ==
[2024-09-17 11:49] VITALS: BP 179/80
--- NOTE | 2024-09-17 12:49 | ED.GENMED ---
History of Present Illness
General
Chief Complaint: Fall
Source: patient
Exam Limitations: none
Nursing documentation reviewed up to this point in time: agreed with
History of Present Illness
History of Present Illness:
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 This occurred at home, he was plugging in his razor when the bath mat slipped and he fell, stricking left forehead on wall. Denies LOC. Denies neck pain, denies n/v
or any other injury
Past History
Past History
ED Past Medical History: Arrthythmia (Atrial fib), CAD, GERD, HTN, Hypercholesterolemia, [place], Psychiatric (Anxiety, Depression) and Other (pancreatitis, Back pain, Neuropathy, Numbness and tingling arm and legs, cardiomyopathy, IBS, H-pylori, Renal
calculus, GOUT, Giant cell arteritis, )
ED Past Surgical History: Appendectomy, Cardiac (LAD stent), Orthopedic (Left ankle surgery. Left fibula surgery, Right bicep repair, Right trigger finger, Lumbar laminectomy, ), Tonsilectomy (Adenoids), Urological (Lithotripsy) and Other (
intussusception x2 as a child, Hemorrhoids, cataracts, Left hernia repair, )
Social History
Tobacco: Non-smoker
Alcohol: Occasional
Drug: None
Personal:
Living: assisted living
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
Family History
Family History: Hypertension
Review of Systems
Review of Systems
Allergies reviewed?: Yes
All Other Systems: ROS reviewed and negative except as documented in HPI and ROS
Constitutional: Denies fatigue
Respiratory: Denies trouble breathing
Cardiac: Denies chest pain or syncope
ABD/GI: Denies abdominal pain, nausea or vomiting
: Denies dysuria, incontinence or difficulty voiding
Musculoskeletal: Denies neck pain or back pain
Skin: Reports other (Bruise left forehead)
Neurological: Denies dizzy, headache, weakness or numbness
Phy Exam
Physical Exam
Physical Exam:
GENERAL: No acute distress. A&Ox3.
CONSTITUTIONAL: Afebrile.
EYES: clear, conjunctivae normal
ENMT: moist mucus membranes, Pharynx nl, TMs normal
RESPIRATORY: Regular respirations, nonlabored, lungs clear.
CARDIOVASCULAR: Regular rate and rhythm, no murmurs, no rubs.
GI: Soft, nontender
MUSCULOSKELETAL: Moves with ease. Walks with a cane. Well perfused.
SKIN: Warm, dry, pink
PSYCH: Normal mood and affect. Well kept, interactive and appropriate
NEUROLOGIC: Awake, alert and oriented. Cranial nerves II through XII intact. Ambulates well with steady gait. No focal neurological deficits
Course
Orders/Labs/Results
Orders:
Orders
09/17/24 11:[address] [CT Head W/o Iv Contrast] Urgent
Comment:
Reason For Exam: fall on thinners
Vital Signs
Initial and Last Documented VS:
Initial Vital Signs
Temp Pulse Resp BP Pulse Ox
98.7 F 60 18 179/80 99
09/17/24 11:49 09/17/24 11:49 09/17/24 11:49 09/17/24 11:49 09/17/24 11:49
Last Documented Vital Signs
Temp Pulse Resp BP Pulse Ox
98.7 F 60 18 158/67 99
09/17/24 11:49 09/17/24 11:49 09/17/24 11:49 09/17/24 13:02 09/17/24 11:49
MDM/Problems Addressed
Differential Diagnosis Includes:
Contusion, concussion, brain bleed
MDM/Problems Addressed:
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 This occurred at home, he was plugging in his razor when the bath mat slipped and he fell, sticking left forehead on wall. Denies LOC. Denies neck pain, denies n/v
or any other injury
Patient is neuroexam is unremarkable. No sign of concussion
Head CT is negative patient is stable for discharge
*Critical Care Note
Total Time (30-74mins, 75-104mins- exclusive of procedures): Not Applicable
ED Attending Note
-
Portions of this chart may have been created with voice recognition software.� Occasional wrong word or��sound alike� substitutions may have occurred due to the inherent limitations of voice recognition software.
Discharge Plan
Departure
Patient Disposition: Home (Routine Discharge)
Date of Disposition: 09/17/24
Time of Disposition: 12:59
Patient with high blood pressure during this ER visit?: No
Condition: Good
Discharge Problem:
Fall from slip, trip, or stumble, Forehead contusion, Head injury, acute, without loss of consciousness, Contusion
Instructions: Head Injury in Adults (DC), Contusion (DC)
Prescriptions:
No Action
prednisone 10 MG tablet
5 mg PO HS
tamsulosin [Flomax] 0.4 MG capsule
0.8 mg PO HS
allopurinol 300 MG tablet
300 mg PO DAILY
rosuvastatin 5 MG tablet
5 mg PO HS
Eliquis 5 MG tablet
5 mg PO BID Qty: 0 0RF
omeprazole 20 mg Tablet,Delayed Release (Dr/Ec)
20 mg PO DAILY
candesartan 32 mg tablet
32 mg PO DAILY 30 Days Qty: 30 0RF
alprazolam 0.25 mg Tablet
0.25 mg PO BID
acetaminophen 650 mg Tablet Extended Release
1,300 mg PO [id number] PRN (Reason: headaches)
escitalopram oxalate [Lexapro] 5 mg Tablet
5 mg PO DAILY
propranolol 10 mg Tablet
10 mg PO BID Qty: 60 1RF
alprazolam 0.5 mg Tablet,Disintegrating
0.5 mg PO HS Qty: 1 0RF
Rx Instructions:
0.25mg BID & 0.5mg HS
Benefiber Clear SF (dextrin) 3 gram/3.5 gram powder in packet
1 packet PO DAILY Qty: 28 0RF
Rx Instructions:
1 tablespoon in 8oz of water daily
Referrals:
Elroy Olguin MD [Family Provider] - As needed
Activity Restrictions/Additional Instructions:
As we discussed, your CAT scan shows nothing worrisome.
Return here immediately for vomiting more than once in 1 hour, confusion or headache that gets worse and worse despite Tylenol.
Interventions
Interventions:
*Risk Screen - Suicide Last Done: 09/17/24 11:49
*General Assessment Last Done: 09/17/24 11:49
*Neglect/Abuse Screening Last Done: 09/17/24 11:49
ED- Fall Risk Assessment Last Done: 09/17/24 13:04
*ED COVID-19 Vaccine History Last Done: 09/17/24 13:04
*Nursing Disposition Last Done: 09/17/24 13:04
ED-Musculoskeletal Assessment Last Done: 09/17/24 13:05
ED- Neurological Assessment Last Done: 09/17/24 12:17
ED-Skin Assessment Last Done: 09/17/24 12:16
Discharge Date and Time
Discharge Date/Time: 09/17/24 13:05
Print Language: ANGOLAN
[2024-09-17 13:02] VITALS: BP 158/67
== END 2024-09-17 13:05 | disposition home or self-care (01) ==
LOC: EMR 11:48
PROVIDERS: EMERGENCY PHYSICIAN Student in an Organized Health Care Education/Training Program; FAMILY PHYSICIAN Internal Medicine
DX: S09.90XA Unspecified injury of head, initial encounter (principal); W18.39XA Other fall on same level, initial encounter; I48.91 Unspecified atrial fibrillation; I25.10 Atherosclerotic heart disease of native coronary artery without angina pectoris; I10 Essential (primary) hypertension; E78.00 Pure hypercholesterolemia, unspecified; I25.2 Old myocardial infarction; F41.8 Other specified anxiety disorders; I42.9 Cardiomyopathy, unspecified; K21.9 Gastro-esophageal reflux disease without esophagitis; K58.9 Irritable bowel syndrome, unspecified; M31.6 Other giant cell arteritis; Z79.01 Long term (current) use of anticoagulants; Z82.49 Family history of ischemic heart disease and other diseases of the circulatory system; Z87.442 Personal history of urinary calculi; Z90.49 Acquired absence of other specified parts of digestive tract; Z95.5 Presence of coronary angioplasty implant and graft
CPT/HCPCS: 99284; 70450

== ENCOUNTER → 2025-01-04 16:54 | Outpatient (REF) | payer OTHER, SELFPAY | LOC: MRI 3T 16:54 | PROVIDERS: ATTENDING PHYSICIAN Orthopaedic Surgery Hand Surgery; FAMILY PHYSICIAN Internal Medicine | DX: M25.511 Pain in right shoulder (principal) | CPT/HCPCS: 73221 ==

== ENCOUNTER 2025-01-23 06:14 | Day surgery (SDC) | payer OTHER, SELFPAY ==
--- NOTE | 2025-01-15 10:43 | CM ---
CM reviewed medical records. CM will remain available as needed.
[2025-01-15 11:25] LABS: Hematocrit 45.0 % (39.0-52.0); Hemoglobin 14.2 g/dL (13.0-18.0); Mean Corp Hgb Conc. 31.6 g/dL (33.0-37.0); Mean Corpuscular Volume 89.8 fL (80.0-94.0); Platelet Count 210 10^3/uL (130-400); Red Cell Dist. Width 15.1 % (11.5-14.5)
[2025-01-15 12:04] LABS: ALT (SGPT) 16 U/L (0-50); AST (SGOT) 20 U/L (17-59); Albumin 4.4 g/dl (3.5-5.0); Alkaline Phosphatase 57 U/L (38-126); Blood Urea Nitrogen 27 mg/dl (9-20); Calcium 9.4 mg/dl (8.4-10.2); Carbon Dioxide 26 mmol/L (22-30); Chloride 106 mmol/L (98-107); Glucose 93 mg/dl (70-99); Potassium 4.4 mmol/L (3.5-5.1); Sodium 142 mmol/L (135-145); Total Protein 7.0 g/dl (6.3-8.2); eGFR > 60.00
[2025-01-15 12:29] LABS: Glycohemoglobin (HgbA1c) 6.0 % (4.0-5.6)
[2025-01-15 13:35] VITALS: BMI 26.0
[2025-01-18 10:57] VITALS: BMI 26.0
[2025-01-23] VITALS (12 sets, daily range): BP systolic 102–122; BP diastolic 60–78; BMI 26.0
[2025-01-23] MEDS: NORMOSOL-R/PLASMALYTE-A 1000 IV (07:19)
[2025-01-23] MEDS: TYLENOL 1000 MG PO (07:19)
[2025-01-23] MEDS: CELEBREX 200 MG PO (07:27)
[2025-01-23] MEDS: ANCEF 5 IV (11:43)
== END 2025-01-23 12:06 | disposition home or self-care (01) ==
LOC: SDS 06:14
PROVIDERS: ATTENDING PHYSICIAN Orthopaedic Surgery Hand Surgery; FAMILY PHYSICIAN Internal Medicine; OTHER PHYSICIAN Physician Assistant; REFERRING PHYSICIAN Internal Medicine Cardiovascular Disease
DX: M19.011 Primary osteoarthritis, right shoulder (principal); M75.101 Unspecified rotator cuff tear or rupture of right shoulder, not specified as traumatic
CPT/HCPCS: 23472; 36415; 73020; 80053; 83036; 85027; 87070; 93005; C1713; C1776

== ENCOUNTER 2025-02-10 01:42 | Inpatient (IN) | payer OTHER, SELFPAY ==
[2025-02-09 16:57] VITALS: BP 153/78
[2025-02-09 17:20] LABS: Hematocrit 38.8 % (39.0-52.0); Hemoglobin 12.4 g/dL (13.0-18.0); Mean Corp Hgb Conc. 32.0 g/dL (33.0-37.0); Mean Corpuscular Volume 89.8 fL (80.0-94.0); Nucleated Red Blood Cells % 0 % (-); Platelet Count 201 10^3/uL (130-400); Red Cell Dist. Width 15.2 % (11.5-14.5)
[2025-02-09 17:35] LABS: ALT (SGPT) 26 U/L (0-50); AST (SGOT) 45 U/L (17-59); Albumin 3.9 g/dl (3.5-5.0); Alkaline Phosphatase 78 U/L (38-126); Blood Urea Nitrogen 30 mg/dl (9-20); Calcium 9.4 mg/dl (8.4-10.2); Carbon Dioxide 31 mmol/L (22-30); Chloride 106 mmol/L (98-107); Glucose 116 mg/dl (70-99); Lipase 127 U/L (23-300); Potassium 4.1 mmol/L (3.5-5.1); Sodium 138 mmol/L (135-145); Total Protein 6.6 g/dl (6.3-8.2); eGFR > 60.00
[2025-02-09 19:53] VITALS: BMI 26.4
[2025-02-09 19:56] VITALS: BP 147/67
[2025-02-09 20:00] VITALS: BP 150/72
[2025-02-09 21:00] VITALS: BP 153/75
[2025-02-09 21:25] VITALS: BP 153/95
--- NOTE | 2025-02-09 21:46 | ED.GENMED ---
History of Present Illness
General
Chief Complaint: Abdominal Pain
Source: patient
Exam Limitations: none
Time Seen by Provider: 02/09/25 20:30
Nursing documentation reviewed up to this point in time: agreed with
History of Present Illness
History of Present Illness:
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 Patient reports onset of symptoms earlier this afternoon�he says he had some vegetable soup and shortly thereafter started with pain in
his abdomen. He reports initially pain was localized to the right lower quadrant and was a steady constant aching. Since arrival in the ER he says it has migrated to the periumbilical region. Denies any associated nausea or vomiting although he
has had some belching. He denies any diarrhea or constipation, last bowel movement was this morning prior to onset of symptoms. He denies any urinary symptoms. He says he has a distant history of pancreatitis that he believes was from gallstone
but no history of cholecystectomy. He does have history of appendectomy as a child. Of note he did have a right shoulder replacement on 01/23/2025; he says he has been managing his pain mostly with Tylenol only took 1 dose of oxycodone the day of
surgery.
Past History
Past History
ED Past Medical History: Arrthythmia (Atrial fib), CAD, GERD, HTN, Hypercholesterolemia, SC, Psychiatric (Anxiety, Depression) and Other (pancreatitis, Back pain, Neuropathy, Numbness and tingling arm and legs, cardiomyopathy, IBS, H-pylori, Renal
calculus, GOUT, Giant cell arteritis, )
ED Past Surgical History: Appendectomy, Cardiac (LAD stent), Orthopedic (Left ankle surgery. Left fibula surgery, Right bicep repair, Right trigger finger, Lumbar laminectomy, ), Tonsilectomy (Adenoids), Urological (Lithotripsy) and Other (
intussusception x2 as a child, Hemorrhoids, cataracts, Left hernia repair, )
Social History
Tobacco: Non-smoker
Alcohol: Occasional
Drug: None
Personal:
Living: assisted living
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
Family History
Family History: Hypertension
Review of Systems
Review of Systems
All Other Systems: ROS reviewed and negative except as documented in HPI and ROS
Constitutional: Denies fever or chills
Respiratory: Denies trouble breathing
Cardiac: Denies chest pain
ABD/GI: Reports abdominal pain; Denies nausea, vomiting, diarrhea or constipated
: Denies dysuria, frequency or flank pain
Musculoskeletal: Denies neck pain or back pain
Neurological: Denies dizzy or headache
Phy Exam
Physical Exam
Physical Exam:
General: Awake, alert; no acute distress
Head: Normocephalic, atraumatic
Eyes: Conjunctiva normal, sclera anicteric
Throat: Airway intact, handling secretions
Neck: Trachea midline
Lungs: Breathing comfortably no distress
Heart: Regular rate
Abd: Soft, non distended, tender to palpation periumbilical region, no peritoneal signs, negative Barriga sign, no palpable hepatosplenomegaly
Neuro: No gross deficits
Skin: no rash in area of concern
Extremities: Sling in place right upper extremity
Scores
Heart Failure Risk
Heart Failure Risk Score: Not Applicable
Heart Score for Chest Pain Patients
STEMI patient?: Not applicable
Withdrawal Assessment of Alcohol
Withdrawal Assessment Completed?: Not applicable
Course
Orders/Labs/Results
Orders:
Orders
02/09/25 17:03
Complete Blood Count/With Diff Urgent
Comprehensive Metabolic Panel Urgent
Lipase Urgent
02/09/25 18:03
Electrocardiogram (*1) Urgent
Reason for Study: Chest Pain
EKG- Treatment ONCE
02/09/25 21:41
CT Abd/pelvis W Iv Cont Urgent
Comment:
Reason For Exam: periumbilical abd pain
0.9% Sodium Chloride 500 ml [Nss] 500 ml IV BOLUS
02/09/25 21:42
Tamsulosin [Flomax] 0.8 mg PO NOW STA
02/09/25 21:44
Escitalopram Oxalate [Lexapro] 5 mg PO ONCE ONE
Rosuvastatin Calcium [Crestor] 5 mg PO ONCE ONE
02/09/25 22:13
Urinalysis Reflex To Culture Urgent
Date Specimen was Collected: 02/09/25
Time Specimen was Collected: 22:08
Urine Microscopic Reflex Cult Urgent
Urine Culture Urgent
MACARIO Source: U
Specimen Description:
Date Specimen was Collected: 02/09/25
Time Specimen was Collected: 22:08
02/09/25 22:14
Troponin I Urgent
02/09/25 22:17
Acetaminophen [Tylenol] 1,000 mg .ROUTE .STK-MED ONE
02/09/25 22:18
Acetaminophen [Tylenol] 1,000 mg PO NOW STA
02/09/25 22:31
Prednisone [Deltasone] 5 mg PO NOW STA
Propranolol [Inderal] 10 mg PO NOW STA
02/09/25 22:33
Tamsulosin [Flomax] 0.4 mg .ROUTE .STK-MED ONE
02/09/25 23:18
Escitalopram Oxalate [Lexapro] 5 mg .ROUTE .STK-MED ONE
02/09/25 23:20
CefTRIAXone [Rocephin] 1,000 mg IV NOW STA
MetroNIDAZOLE 500 MG/100 ML [Flagyl 500 mg] 100 ml IV NOW
Morphine Sulfate 4 mg IV NOW STA
02/09/25 23:23
SURGICAL CONSULT Urgent
Consulting Provider: Ruel Snyder
Was physician already notified: Yes
Abnormal Lab Results
02/09/25 02/09/25
17:03 22:13
RBC 4.32 L 10^6/uL
(4.70-6.10)
Hgb 12.4 L g/dL
(13.0-18.0)
Hct 38.8 L %
(39.0-52.0)
MCHC 32.0 L g/dL
(33.0-37.0)
RDW 15.2 H %
(11.5-14.5)
MPV 11.1 H fL
(7.4-10.4)
Absolute Monos (auto) 0.8 H 10^3/uL
(0.1-0.6)
Carbon Dioxide 31 H mmol/L
(22-30)
BUN 30 H mg/dl
(9-20)
Glucose 116 H mg/dl
(70-99)
Total Bilirubin 1.7 H mg/dl
(0.2-1.3)
Urine Ketones 1+ A
(Negative)
Leukocyte Esterase Rfl 1+ A
(Negative)
Urine Bacteria (Reflex) Few A
(Negative)
Urine Albumin (Reflex) 1+ A
(Neg - Trace)
02/09/25 17:03
02/09/25 17:03
Vital Signs
Initial and Last Documented VS:
Initial Vital Signs
Temp Pulse Resp BP Pulse Ox
36.4 C 54 18 153/78 99
02/09/25 16:57 02/09/25 16:57 02/09/25 16:57 02/09/25 16:57 02/09/25 16:57
Last Documented Vital Signs
Temp Pulse Resp BP Pulse Ox
36.4 C 79 13 153/76 98
02/09/25 16:57 02/09/25 23:20 02/09/25 21:30 02/09/25 23:20 02/09/25 21:49
MDM/Problems Addressed
Differential Diagnosis Includes:
Enteritis, gastritis, pancreatitis, cholecystitis, cholelithiasis, choledocholithiasis, nephrolithiasis, diverticulitis, bowel obstruction, hernia
MDM/Problems Addressed:
84-year-old male presents for evaluation of rhoda pain that started earlier this afternoon after eating�initially right lower quadrant but since has migrated periumbilical. Hypertensive but otherwise normal vitals. Physical exam as above. He had
lab work sent in triage including CBC which shows marginal anemia which is essentially stable. His CMP shows mildly elevated BUN�patient admits he has not had much to drink today which is likely contributing to this. His T. bili is elevated to 1.7
but normal transaminases and normal lipase. EKG shows sinus rhythm no acute ischemia. Check troponin given his history. Will check CT of the abdomen pelvis. Will check urinalysis. Will monitor and reassess after the above. Patient is due for
his home meds which were ordered at his request with the exception of holding his anticoagulation pending imaging.
CT abdomen pelvis shows signs concerning for cholecystitis. Urinalysis no signs of infection. Will cover with antibiotics. Discussed with general surgery for consultation. Discussed with hospitalist for admission.
*Radiology
Radiology exam reviewed: radiology read reviewed
*Pulse Oximetry
SaO2: 98
Oxygen Mode of Delivery: Room air
Patient hypoxic: no (98%)
*EKG
Interpreted by ED Provider?: Yes
Comparison EKG: no changes
Heart Rate: 62
Rate: normal
Rhythm: sinus
[place]: normal axis
Interval: normal interval
QRS Pattern: low voltage
Ischemia: no ischemia
*Critical Care Note
Total Time (30-74mins, 75-104mins- exclusive of procedures): Not Applicable
Data Reviewed
Review of Other/Old Records Reveals: Labs and Records
Source: patient, records and family
Patient Management
Discussion with other providers: Hospitalist (Discussed with hospitalist) and Phosphorus Processing Supervisor (Discussed with general surgery)
Escalation/DeEscalation of care consider admission/obs:
Admission indicated
ED Attending Note
-
Portions of this chart may have been created with voice recognition software.� Occasional wrong word or��sound alike� substitutions may have occurred due to the inherent limitations of voice recognition software.
Discharge Plan
Departure
Patient Disposition: Admit
Date of Disposition: 02/09/25
Time of Disposition: 23:32
Admit to doctor: Joy
Presentation/result/management discussed w/ accepting MD/DO: Hospitalist
Discharge Problem:
Acute cholecystitis
Prescriptions:
No Action
tamsulosin [Flomax] 0.4 MG capsule
0.8 mg PO HS
allopurinol 300 MG tablet
300 mg PO DAILY
rosuvastatin 5 MG tablet
5 mg PO HS
Eliquis 5 MG tablet
5 mg PO BID Qty: 0 0RF
omeprazole 20 mg Tablet,Delayed Release (Dr/Ec)
20 mg PO DAILY
alprazolam 0.25 mg Tablet
0.25 mg PO DAILY
escitalopram oxalate [Lexapro] 5 mg Tablet
5 mg PO DAILY
propranolol 10 mg Tablet
10 mg PO BID Qty: 60 1RF
alprazolam 0.5 mg Tablet,Disintegrating
0.5 mg PO HS Qty: 1 0RF
Rx Instructions:
0.25mg BID & 0.5mg HS
prednisone 5 mg Tablet
5 mg PO HS
Benefiber Clear SF (dextrin) 3 gram/3.5 gram powder in packet
1 - 2 packet PO DAILY
Rx Instructions:
1 tablespoon in 8oz of water daily
famotidine [Pepcid] 20 mg Tablet
20 mg PO DAILYPRN PRN (Reason: chest pain/reflux)
calcium carbonate [Tums] 200 mg calcium (500 mg) Tablet,Chewable
200 mg PO DAILYPRN PRN (Reason: chest pain/reflux)
nitroglycerin 0.4 mg Tablet, Sublingual
0.4 mg SUBLINGUAL Q5-15M PRN (Reason: chest pain)
loperamide 2 mg Capsule
2 mg PO DAILYPRN PRN (Reason: diarrhea) Qty: 0 0RF
acetaminophen 500 mg Tablet
1,000 mg PO Q6H Qty: 60 0RF
Rx Instructions:
DO NOT exceed >4000 mg daily.
candesartan 32 mg tablet
32 mg PO DAILY Qty: 1 0RF
Rx Instructions:
HOLD IF systolic blood pressure <130 while on post-surgical narcotics.
simethicone 80 mg Tablet,Chewable
80 mg PO DAILYPRN PRN (Reason: gas) Qty: 0 0RF
Referrals:
Elroy Olguin MD [Family Provider, Internal Medicine]
Interventions
Interventions:
*Risk Screen - Suicide Last Done: 02/09/25 16:57
*General Assessment Last Done: 02/09/25 16:57
*Neglect/Abuse Screening Last Done: 02/09/25 19:48
*ED- Fall Risk Assessment Last Done: 02/09/25 19:49
*ED COVID-19 Vaccine History Last Done: 02/09/25 19:49
IB-Mvfzyc-Hlllqzdwxd Assessment Last Done: 02/09/25 21:25
Discharge Date and Time
Print Language: AZERBAIJANI
[2025-02-09] MEDS: TYLENOL 1000 MG PO (22:18)
[2025-02-09 22:21] LABS: Urine Character Clear (Clear)
[2025-02-09] MEDS: NSS 500 IV (22:21)
[2025-02-09] MEDS: FLOMAX 0.8 MG PO (22:32)
[2025-02-09 22:40] LABS: Urine Red Blood Cell 0-2 /HPF (0-2); Urine Squamous Cell 0-2 /LPF (Few); Urine White Cell 0-2 /HPF (0-5)
[2025-02-09 22:48] LABS: Troponin I < 0.012 ng/ml
[2025-02-09] MEDS: DELTASONE 5 MG PO (23:20)
[2025-02-09] MEDS: INDERAL 10 MG PO (23:20)
[2025-02-09 23:23] VITALS: BP 136/66
[2025-02-09] MEDS: MORPHINE SULFATE 4 MG IV (23:40)
[2025-02-09] MEDS: FLAGYL 500 MG 100 IV (23:42)
[2025-02-09] MEDS: ROCEPHIN 1000 MG IV (23:42)
[2025-02-10] VITALS (8 sets, daily range): BP systolic 89–109; BP diastolic 51–85
--- NOTE | 2025-02-10 01:05 | HPS.HSE ---
Family Physician
-
Family Physician: Elroy Olguin
Chief Complaint
-
Abdominal pain
History of Present Illness
This is a 84-year-old with past medical history significant for CAD status post stenting, atrial fibrillation on anticoagulation, hypertension, hyperlipidemia, adrenal insufficiency, BPH GERD presenting to the emergency department with 1 day history
of abdominal pain.
Pain started after having vegetable soup male and was localized to the right lower quadrant. Now migrating to the periumbilical region. Denies any associated nausea or vomiting. Denies any constipation, diarrhea, flank pain urinary frequency
incontinence dysuria or hematuria. Denies alcohol use. Reports distant history of pancreatitis. He also reports that he has had gallstone pancreatitis. He status post appendectomy as a child. He denies having any fevers or chills.
Denies any new medications.
In the emergency department he was afebrile, blood pressure 98/50 with a pulse of 69 and was satting 96% on room air. ECG shows normal sinus rhythm without any acute interval changes. CBC was currently unremarkable. Electrolytes BUN/creatinine
were also within normal range. LFTs were normal. T bilirubin was slightly elevated at 1.7. Lipase was negative. UA was unremarkable.
CT of the abdomen pelvis showing distended gallbladder with stones and trace amount of fluid between the gallbladder and liver, subtle area of stranding and thickening, acute cholecystitis in consideration.
Medical History
Past Medical History
Past Medical History: Reports Other (CAD with stent, paroxysmal atrial fibrillation, hypertension, GERD, gout, rheumatoid arthritis, degenerative disease/spinal stenosis, hemorrhoids, peripheral neuropathy, BPH, nephrolithiasis, anxiety/depression,
H. pylori)
Past Surgical History: Reports Other ( Appendectomy, Cardiac (LAD stent), Orthopedic (Left ankle surgery. Left fibula surgery, Right bicep repair, Right trigger finger, Lumbar laminectomy, ), Tonsilectomy (Adenoids), Urological (Lithotripsy) and
Other ( intussusception x2 as a child, Hemorrhoids, cataracts, Left hernia repair, ))
Social History
Tobacco: Non-smoker
Alcohol: Occasional
Drug: None
Family History
Family History: Not pertinent
Allergies / Home Medications
Allergies reflects when Allergies were last updated in [facility].
Home Medications with original date entered in [facility]
Allergy/Medication List:
Allergies
Allergy/AdvReac Type Severity Reaction Status Date / Time
carvedilol Allergy Unknown Unknown Verified 04/28/24 12:44
meperidine [From Demerol] Allergy Unknown Unknown Verified 04/28/24 12:44
methotrexate Allergy Unknown Unknown Verified 04/28/24 12:44
atorvastatin calcium Allergy myalgias Verified 04/28/24 12:44
[From Lipitor]
lisinopril Allergy COUGH Verified 04/28/24 12:44
meperidine HCl [From Demerol] Allergy Nausea Verified 04/28/24 12:44
piroxicam [From Feldene] Allergy Gastritis Verified 04/28/24 12:44
simvastatin [From Zocor] Allergy myalgias Verified 04/28/24 12:44
MERTAZIPINE AdvReac Unknown Uncoded 04/28/24 12:44
Home Medications
alprazolam 0.5 mg tablet 0.5 mg PO HSPRN PRN INSOMNIA 01/02/20
prednisone 10 mg tablet 5 mg PO HS Anti-inflammatory 03/12/20
acetaminophen 325 mg tablet 650 mg PO Q4HPRN PRN fever 09/06/20
tamsulosin 0.4 mg capsule (Flomax) 0.8 mg PO HS Urinary issue 09/07/20
allopurinol 300 mg tablet 300 mg PO DAILY Gout 01/05/21
calcium carbonate (Antacid (calcium carbonate)) 1 tab PO Q6HPRN PRN upset stomach 01/05/21
candesartan 32 mg-hydrochlorothiazide 12.5 mg tablet 1 tab PO DAILY Blood pressure 01/05/21
famotidine 20 mg tablet 20 mg PO DAILYPRN PRN gerd 01/05/21
nitroglycerin 0.4 mg sublingual tablet 0.4 mg sublingual [id number] PRN chest pain 01/05/21
rosuvastatin 5 mg tablet 5 mg PO HS High cholesterol 01/05/21
apixaban 5 mg tablet (Eliquis) 5 mg PO BID Blood clot prevention/tx ##0 01/30/21
propranolol 60 mg tablet 60 mg PO DAILY Blood Pressure 01/30/21
omeprazole 20 mg tablet,delayed release 20 mg PO DAILY Gastrointestinal Issue 01/08/24
ailubtglxr-jziasxwwgfmzm-pjyeswhk 50 mg-325 mg-40 mg tablet 1 tab PO DAILYPRN PRN headache\\ #0 tabs 01/09/24
cyanocobalamin (vitamin B-12) 1,000 mcg tablet 1,000 mcg PO DAILY #30 tabs 01/09/24
oxycodone 5 mg capsule 5 mg PO Q8H PRN Pain #14 caps 02/21/24
Review of Systems
-
Constitutional: Reports No Symptoms
EENT: Reports No Symptoms
Respiratory: Reports No Symptoms
Cardiac: Reports No Symptoms
Abdomen/GI: Reports Abdominal Pain
: Reports No Symptoms
Musculoskeletal: Reports No Symptoms
Skin: Reports No Symptoms
Neurological: Reports No Symptoms
Endocrine: Reports No Symptoms
Hematologic/Lymphatic: Reports No Symptoms
Psych: Reports No Symptoms
Physical Exam
Vital Signs
Vital Signs
Temp Pulse Resp BP Pulse Ox
97.6 F 69 17 98/51 96
02/09/25 16:57 02/10/25 00:45 02/10/25 00:45 02/10/25 00:37 02/10/25 00:45
Physical Exam
General: Well Developed, Well Nourished and No Apparent Distress
HEENT: NormoCephalic, Moist mucous membranes and Atraumatic
Respiratory: Clear
Cardiac: S1/S2 and Regular Rhythm; No Murmur or Rub
GI: Soft, Non Tender, Non Distended and Normal Bowel Sounds; No Organomegaly
Rectal: Deferred by Provider
Musculoskeletal: No Clubbing, No Cyanosis and No Edema
Skin: No Rash
Neuro: Nonfocal/grossly intact
Laboratory Results
-
02/09/25 17:03
02/09/25 17:03
Laboratory Results
Total Bilirubin 1.7 mg/dl (0.2-1.3) H 02/09/25 17:03
AST 45 U/L (17-59) 02/09/25 17:03
ALT 26 U/L (0-50) 02/09/25 17:03
Alkaline Phosphatase 78 U/L (38-126) 02/09/25 17:03
Troponin I < 0.012 ng/ml 02/09/25 22:14
Lipase 127 U/L (23-300) 02/09/25 17:03
Data Reviewed
-
CT Scan: Report Reviewed by me
Medical Tests (Nuc Med, Echo, EKG etc): Image Personally Visualized and interpreted
Old Records: Reviewed
Impression/Plan
-
IMPRESSION:
84 y.o with one day history of abdominal pain in the RLQ, migrating to the periumbilical region w/o associated n/v/diarrhea. No constipation. Afebrile and HD stable. S/P appendectomy in childhood. Tbili 1.7, labs otherwise unremarkable. CT a/p
with distended GB with stones and some edema and wall thickening raising concern for acute cholecystitis.
PLAN:
1. Abdominal pain - Possible acute cholecystitis vs biliary colic
- admit to med/surg
- NPO for now
- pain control, antiemetics and iv fluids
- IV ceftriaxone/flagyl for now
- consult surgery.
2. AFIB -
- hold eliquis, last dose tuesday am.
- continue propranolol
3. HTN
- hold candersartan for now
4. Adrenal insufficiency - Initially thought ot have AI inpatient, he followed up with endocrine and this was disconfirmed.
- continue prednisone 5 hs for RA
5. BPH
- continue tamsulosin
DVT PPX - on eliquis, SCDs
Code status - full code
[2025-02-10] MEDS: D5LR 1000 IV (02:56)
[2025-02-10] MEDS: XANAX 0.5 MG PO (02:56)
[2025-02-10 07:25] LABS: Hematocrit 35.9 % (39.0-52.0); Hemoglobin 11.7 g/dL (13.0-18.0); Mean Corp Hgb Conc. 32.6 g/dL (33.0-37.0); Mean Corpuscular Volume 88.6 fL (80.0-94.0); Platelet Count 171 10^3/uL (130-400); Red Cell Dist. Width 15.1 % (11.5-14.5)
[2025-02-10 07:43] LABS: Blood Urea Nitrogen 27 mg/dl (9-20); Calcium 8.6 mg/dl (8.4-10.2); Carbon Dioxide 26 mmol/L (22-30); Chloride 106 mmol/L (98-107); Estimated Creatinine Clearance 67 ml/min; Glucose 147 mg/dl (70-99); Magnesium 1.7 mg/dl (1.6-2.3); Potassium 4.0 mmol/L (3.5-5.1); Sodium 136 mmol/L (135-145); eGFR > 60.00
[2025-02-10] MEDS: PROTONIX IV 40 MG IV (08:29)
[2025-02-10] MEDS: XANAX 0.25 MG PO (08:30)
[2025-02-10] MEDS: FLAGYL 500 MG 100 IV (08:31)
[2025-02-10] MEDS: NSS (PRESERVATIVE FREE) 10 ML IV (08:32)
[2025-02-10] MEDS: TYLENOL 650 MG PO (08:36)
[2025-02-10] MEDS: INDERAL 10 MG PO (09:24)
--- NOTE | 2025-02-10 10:05 | CON.GS ---
Addendum entered and electronically signed by Ruel Snyder MD 02/10/25 11:35:
I saw and examined the patient.
The Sales Department Supervisor's note was reviewed and I agree with the note.
Comment: No pain this am, no ttp this am. CT not convincing for ACC. AFVSS. Labs WNL except isolated elevated Tbili with normal ADT/ALT/ALP (suspect Gilbert's). Suspect biliary colic. Pt prefers to recover from shoulder surgery prior to considering
CCY. PO challenge and home if tolerates with outpt GS f/u.
Original Note:
Consultation
-
Date/Time Consultation Performed: 02/10/25 0845
Medical History
-
Chief Complaint: RLQ pain
History of Present Illness:
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
pain which began around 2pm yesterday after eating vegetable soup for lunch and persisted causing him to present through the ED yesterday afternoon. Currently, he notes that this pain is resolved. He denies associated bowel or bladder changes. He
denies nausea and vomiting. He denies fevers or chills. On exam, there is very mild RUQ tenderness.
Past Medical History
Past Medical History: Arrhythmias (PAF on Eliquis), CAD, GERD, NM and Other (gout, bph, nephrolithiasis, RA)
Past Surgical History: Appendectomy (open, as a child), Cardiac (stent), Hernia Repair (left inguinal), Orthopedic (lumbar laminectomy 2019, right TSA (01/23/25), left ankle surgery, right bicep repair), Tonsilectomy, Urological (ureteroscopy for
stones) and Other (Colonoscopy 2022, Intussusception x2 as a child)
Social History
Tobacco: Non-Smoker
Alcohol: Occasional
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
Family History
Family History: Reviewed & Not Pertinent
Allergies / Home Medications
Allergy/AdvReac Type Severity Reaction Status Date / Time
carvedilol Allergy Unknown Unknown Verified 02/09/25 16:58
meperidine (From Demerol) Allergy Unknown Nausea Verified 02/09/25 16:58
methotrexate Allergy Unknown Unknown Verified 02/09/25 16:58
atorvastatin calcium (From Allergy myalgias Verified 02/09/25 16:58
Lipitor)
lisinopril Allergy COUGH Verified 02/09/25 16:58
meperidine HCl (From Demerol) Allergy Nausea Verified 02/09/25 16:58
mirtazapine Allergy SLEEP Verified 02/09/25 16:58
DEPRIVATION
AND
INCREASE
IN ANXIETY
piroxicam (From Feldene) Allergy Gastritis Verified 02/09/25 16:58
simvastatin (From Zocor) Allergy myalgias Verified 02/09/25 16:58
�Medication �Instructions �Recorded �Confirmed �Type
tamsulosin 0.4 mg capsule (Flomax) 0.8 mg PO HS Urinary issue 09/07/20 02/09/25 History
allopurinol 300 mg tablet 300 mg PO DAILY Gout 01/05/21 02/09/25 History
rosuvastatin 5 mg tablet 5 mg PO HS High cholesterol 01/05/21 02/09/25 History
apixaban 5 mg tablet (Eliquis) 5 mg PO BID Blood clot 01/30/21 02/09/25 Rx
Held on 01/23/25. prevention/tx ##0
Instructions: Resume on
01/26/25.
omeprazole 20 mg tablet,delayed 20 mg PO DAILY Gastrointestinal 01/08/24 02/09/25 History
release Issue
alprazolam 0.25 mg tablet 0.25 mg PO DAILY 05/02/24 02/09/25 History
escitalopram oxalate 5 mg tablet 5 mg PO HS 05/05/24 02/10/25 History
(Lexapro)
alprazolam 0.5 mg disintegrating 0.5 mg PO HS #1 tab 05/08/24 02/09/25 Rx
tablet
propranolol 10 mg tablet 10 mg PO BID #60 tabs 05/08/24 02/09/25 Rx
calcium carbonate (Tums) 200 mg PO DAILYPRN PRN chest 01/14/25 02/09/25 History
pain/reflux
famotidine 20 mg tablet (Pepcid) 20 mg PO DAILYPRN PRN chest 01/14/25 02/09/25 History
pain/reflux
nitroglycerin 0.4 mg sublingual 0.4 mg sublingual Q5-15M PRN chest 01/14/25 02/09/25 History
tablet pain
prednisone 5 mg tablet 5 mg PO HS 01/14/25 02/09/25 History
wheat dextrin 3 gram/3.5 gram oral 1 - 2 packet PO DAILY 01/14/25 02/09/25 History
powder packet (Benefiber Clear
Sugar Free(dextrin))
acetaminophen 500 mg tablet 1,000 mg (2 x 500 mg) PO Q6H Pain 01/23/25 02/09/25 Rx
#60 tabs
candesartan 32 mg tablet 32 mg PO DAILY #1 tab 01/23/25 02/09/25 Rx
loperamide 2 mg capsule 2 mg PO DAILYPRN PRN diarrhea #0 01/23/25 02/09/25 Rx
caps
simethicone 80 mg chewable tablet 80 mg PO DAILYPRN PRN gas #0 tabs 01/23/25 02/09/25 Rx
Review of Systems
-
History Source: Patient
All other systems: Negative unless noted
A 10 point review of systems was completed, and was negative except as per HPI.
Physical Exam
Vital Signs
Temp Pulse Resp BP Pulse Ox
97.9 F 79 20 109/85 99
02/10/25 07:10 02/10/25 07:10 02/10/25 07:10 02/10/25 07:10 02/10/25 07:10
02/09/25 02/10/25 02/11/25
06:59 06:59 06:59
Actual Weight 78.8 kg
Body Mass Index (BMI) 26.4
Lab Results
02/10/25 07:11
02/10/25 07:11
WBC 9.6 10^3/uL (4.8-10.8) 02/10/25 07:11
Hgb 11.7 g/dL (13.0-18.0) L 02/10/25 07:11
Hct 35.9 % (39.0-52.0) L 02/10/25 07:11
Plt Count 171 10^3/uL (130-400) 02/10/25 07:11
Abs Immat Gran (auto) 0.0 10^3/uL (0-0.05) 02/09/25 17:03
Neutrophils % 63.9 % (42.2-75.2) 02/09/25 17:03
Physical Exam
General: Well Developed and Well Nourished
HEENT: Normocephalic and Moist Mucous Membranes
Respiratory: Non Labored Respirations
GI: Soft, Non Distended and Tender (very minimal to RUQ)
Musculoskeletal: Other (right arm in immobilizing sling)
Skin: Warm and Dry
Neuro: Awake, Alert and AO x 3
Psych: Calm
Data Reviewed
-
CT Scan: Image Personally Visualized and interpreted, Report Reviewed by me, Discussed with Physician and Discussed with Patient
Labs: Labs Reviewed by me, Discussed with Physician and Discussed with Patient
Old Records: Reviewed
Assessment / Plan
-
84 yo male with a h/o CAD with stent, PAF on Eliquis (LD 7 am), prior episode of gallstone pancreatitis about 10 years ago, appendectomy and recent right TSA on Yaima 2 who presented with RLQ pain which is currently resolved. Exam findings of some
mild RUQ tenderness. CT imaging with cholelithiasis with some possible wall thickening. No leukocytosis or fevers. Suspect biliary colic.
Given his prior episode of gallstone pancreatitis with this current episode of biliary colic, would recommend laparoscopic cholecystectomy. This could be done this admission vs electively as an outpatient after he has recovered from recent TSA. Will
start regular diet and follow for return of symptoms. If remains pain free, would recommend outpatient follow up to discuss future surgery. If pain recurs with PO intake, will place on OR schedule tomorrow for lap dacia once Eliquis is washed out.
Plan:
Surgical plan as above
Regular diet for PO challenge. If pain recurs, will make NPO after MN for tentative OR tomorrow otherwise if no pain ok for discharge
Hold Eliquis in case pain recurs and OR required this admission
--- NOTE | 2025-02-10 16:52 | W.DCSUMMARY ---
Discharge Summary
Discharge Data
Date of Admission: 02/10/25
Date of Discharge: 02/10/25
Total time spent discharging patient (in min): 45
-
Pending Results: No
Hospital Course
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
(proximate 10 years ago), and recent right shoulder arthroplasty (01/23/2025, immobilized with sling) who presented with 24 hours of right-sided abdominal pain. His symptoms began after eating vegetable soup. CT imaging of his abdomen showed
evidence of acute calculus cholecystitis. He was started on IV fluids and antibiotics and admitted for further evaluation and management.
His pain resolved spontaneously. He was evaluated by general surgery and and was felt that eventual surgical intervention was warranted for cholecystectomy. Through shared decision making, it was decided that if patient's pain did not recur with a
p.o. diet then it would be best to postpone surgical intervention until the outpatient setting, ideally after his right arm immobilizer has been removed. Patient was able to tolerate a p.o. diet and remained pain-free. He was medically stable for
discharge home. He was given a prescription for Augmentin to continue antibiotic coverage for total of 5 days.
General: No Apparent Distress, Comfortable and Conversant
HEENT: NormoCephalic, Moist mucous membranes, Atraumatic
Respiratory: Clear and Non Labored Respirations
Cardiac: S1/S2 and Regular Rhythm; No Rub or Gallop
GI: Soft, Non Tender, Non Distended and Normal Bowel Sounds
Musculoskeletal: No Edema, right arm in immobilizer
: NO Resendiz
Neuro: Awake, Alert, Nonfocal/grossly intact
Psych: Calm and Intact Judgment/Insight
Discharge Plan
-
Patient Disposition: Home (Routine Discharge)
Discharge Diagnosis/Procedures: Acute cholecystitis
Diet: Low Fat
Activity Restrictions/Additional Instructions:
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
(proximate 10 years ago), and recent right shoulder arthroplasty (01/23/2025, immobilized with sling) who presented with 24 hours of right-sided abdominal pain. His symptoms began after eating vegetable soup. CT imaging of his abdomen showed
evidence of acute calculus cholecystitis. He was started on IV fluids and antibiotics and admitted for further evaluation and management.
His pain resolved spontaneously. He was evaluated by general surgery and and was felt that eventual surgical intervention was warranted for cholecystectomy. Through shared decision making, it was decided that if patient's pain did not recur with a
p.o. diet then it would be best to postpone surgical intervention until the outpatient setting, ideally after his right arm immobilizer has been removed. Patient was able to tolerate a p.o. diet and remained pain-free. He was medically stable for
discharge home. He was given a prescription for Augmentin to continue antibiotic coverage for total of 5 days.
Referrals:
Ruel Snyder MD [Active, Surgical] - in four to six weeks
Elroy Olguin MD [Family Provider, Internal Medicine]
Prescriptions:
New
amoxicillin-pot clavulanate 875-125 mg tablet
1 tab PO BID 4 Days Qty: 8 0RF
Continued
tamsulosin [Flomax] 0.4 MG capsule
0.8 mg PO HS
allopurinol 300 MG tablet
300 mg PO DAILY
rosuvastatin 5 MG tablet
5 mg PO HS
Eliquis 5 MG tablet
5 mg PO BID Qty: 0 0RF
omeprazole 20 mg Tablet,Delayed Release (Dr/Ec)
20 mg PO DAILY
alprazolam 0.25 mg Tablet
0.25 mg PO DAILY
escitalopram oxalate [Lexapro] 5 mg Tablet
5 mg PO HS
propranolol 10 mg Tablet
10 mg PO BID Qty: 60 1RF
alprazolam 0.5 mg Tablet,Disintegrating
0.5 mg PO HS Qty: 1 0RF
Rx Instructions:
0.25mg BID & 0.5mg HS
prednisone 5 mg Tablet
5 mg PO HS
Benefiber Clear SF (dextrin) 3 gram/3.5 gram powder in packet
1 - 2 packet PO DAILY
Rx Instructions:
1 tablespoon in 8oz of water daily
famotidine [Pepcid] 20 mg Tablet
20 mg PO DAILYPRN PRN (Reason: chest pain/reflux)
calcium carbonate [Tums] 200 mg calcium (500 mg) Tablet,Chewable
200 mg PO DAILYPRN PRN (Reason: chest pain/reflux)
nitroglycerin 0.4 mg Tablet, Sublingual
0.4 mg SUBLINGUAL Q5-15M PRN (Reason: chest pain)
loperamide 2 mg Capsule
2 mg PO DAILYPRN PRN (Reason: diarrhea) Qty: 0 0RF
acetaminophen 500 mg Tablet
1,000 mg PO Q6H Qty: 60 0RF
Rx Instructions:
DO NOT exceed >4000 mg daily.
candesartan 32 mg tablet
32 mg PO DAILY Qty: 1 0RF
Rx Instructions:
HOLD IF systolic blood pressure <130 while on post-surgical narcotics.
simethicone 80 mg Tablet,Chewable
80 mg PO DAILYPRN PRN (Reason: gas) Qty: 0 0RF
Discharge Orders:
Discharge Patient (As Directed); Ordered 02/10/25
Ordered By: Basilio Rubio
Discharge Date and Time
Print Language: UKRAINIAN
== END 2025-02-10 19:01 | disposition home or self-care (01) | DRG 445 ==
LOC: ED 01:42
PROVIDERS: ADMITTING PHYSICIAN Internal Medicine; ATTENDING PHYSICIAN Internal Medicine; CONSULT PHYSICIAN Surgery; EMERGENCY PHYSICIAN Emergency Medicine; FAMILY PHYSICIAN Internal Medicine
DX: K80.00 Calculus of gallbladder with acute cholecystitis without obstruction (principal); E27.40 Unspecified adrenocortical insufficiency; I42.9 Cardiomyopathy, unspecified; I10 Essential (primary) hypertension; E78.00 Pure hypercholesterolemia, unspecified; F32.A Depression, unspecified; F41.9 Anxiety disorder, unspecified; I25.10 Atherosclerotic heart disease of native coronary artery without angina pectoris; K21.9 Gastro-esophageal reflux disease without esophagitis; M10.9 Gout, unspecified; I48.0 Paroxysmal atrial fibrillation; K58.0 Irritable bowel syndrome with diarrhea; G62.9 Polyneuropathy, unspecified; K82.8 Other specified diseases of gallbladder; N40.0 Benign prostatic hyperplasia without lower urinary tract symptoms; M06.9 Rheumatoid arthritis, unspecified; Z96.611 Presence of right artificial shoulder joint; I25.2 Old myocardial infarction; Z82.49 Family history of ischemic heart disease and other diseases of the circulatory system; Z95.5 Presence of coronary angioplasty implant and graft; Z79.01 Long term (current) use of anticoagulants; Z79.52 Long term (current) use of systemic steroids; Z90.49 Acquired absence of other specified parts of digestive tract; Z88.5 Allergy status to narcotic agent; Z88.8 Allergy status to other drugs, medicaments and biological substances; Z87.442 Personal history of urinary calculi
CPT/HCPCS: 74177; 80048; 80053; 81003; 81015; 83690; 83735; 84484; 85025; 85027; 87077; 87086; 87186; 93005; 96361; 96365; 96366; 96375; 99285; Q9967

== ENCOUNTER → 2025-05-20 08:04 | Outpatient (REF) | payer OTHER, SELFPAY | LOC: PAVMRI 08:04 | PROVIDERS: ATTENDING PHYSICIAN Physician Assistant Surgical | DX: M48.062 Spinal stenosis, lumbar region with neurogenic claudication (principal) | CPT/HCPCS: 72148 ==